=== PATIENT | male | born 1945 | race Hispanic/Latino ===

== ENCOUNTER 2023-04-17 14:55 | Emergency (ER) | payer OTHER ==
[~2023-04-17] VITALS: Ht 177.8 cm; Wt 81.6 kg
[~2023-04-17 14:55] MED LIST: AEC81 PO; GLIP10TA9 PO; INSU100V12 SQ; METF-446 PO; PSYL1000 MC; ROSU20TA73 PO; TRAM50TA4 PO
[2023-04-17 16:46] VITALS: BP 92/72; PULSE 95; RESP 19; O2SAT 96
[2023-04-17 17:02] LABS: HEMATOCRIT 43.4 % (42-54); MEAN CORPUSCULAR HEMOGLOBIN 30.3 pg (27.0-33.0); MEAN CORPUSCULAR HGB CONC 34.3 g/dL (32.0-36.0); MEAN CORPUSCULAR VOLUME 88.4 fL (79-99); PLATELET COUNT (AUTO) 335 K/uL (130-400); RED BLOOD CELL COUNT(AUTO) 4.91 MIL/uL (4.50-6.20); WHITE BLOOD COUNT (AUTO) 11.3 K/uL (4.8-10.8)
[2023-04-17 17:10] LABS: POTASSIUM 3.6 mmol/L (3.5-5.1)
[2023-04-17 17:49] LABS: ALBUMIN 3.4 g/dL (3.5-5.0); BILIRUBIN,TOTAL 0.4 mg/dL (0.2-1.0)
[2023-04-17 17:55] LABS: BASOPHILS # (AUTO) 0.05 K/uL (0.00-0.20); BASOPHILS % (AUTO) 0.4 % (0.0-5.0); EOSINOPHILS # (AUTO) 0.17 K/uL (0.00-0.70); EOSINOPHILS % (AUTO) 1.5 % (0.0-8.0); IMMATURE GRANULOCYTE ABSOLUTE 0.07 K/uL (0-1); LYMPHOCYTES # (AUTO) 1.5 K/uL (1.0-4.8); LYMPHOCYTES % (AUTO) 13.7 % (21.0-51.0); MONOCYTES % (AUTO) 9.2 % (3.0-13.0); NEUTROPHILS # (AUTO) 8.3 K/uL (1.8-7.7); NEUTROPHILS % (AUTO) 74.6 % (40.0-77.0)
[2023-04-17] MEDS ORDERED: HYDR-4377 PO (18:57)
[2023-04-17] MEDS ORDERED: GABA-529 PO (18:57)
[2023-04-17] MEDS ORDERED: BACITRACIN 28.4 GM OINT TP SCH (19:00)
[2023-04-17] MEDS: BACITRACIN 28.4 GM OINT TP ONE (19:29)
== END 2023-04-17 19:45 | disposition home or self-care (01) ==
LOC: EDH 14:55
DX: T25.122A Burn of first degree of left foot, initial encounter (principal); T31.0 Burns involving less than 10% of body surface; X08.8XXA Exposure to other specified smoke, fire and flames, initial encounter; Y93.89 Activity, other specified; Y92.89 Other specified places as the place of occurrence of the external cause; Y99.8 Other external cause status; I10 Essential (primary) hypertension; E11.9 Type 2 diabetes mellitus without complications; Z79.82 Long term (current) use of aspirin; Z79.84 Long term (current) use of oral hypoglycemic drugs; Z79.899 Other long term (current) drug therapy
CPT/HCPCS: 36415; 73600; 73630; 80053; 82550; 85025

== ENCOUNTER 2024-05-10 13:13 | Emergency (ER) | payer MEDICARE, OTHER ==
[~2024-05-10] VITALS: Ht 175.3 cm; Wt 84.8 kg
[~2024-05-10 13:13] MED LIST changes: +GABA-529 PO; +GLIP10TA16 PO; -GLIP10TA9 PO; +HYDR-4377 PO; -ROSU20TA73 PO; +ROSU20TA98 PO
--- NOTE | 2024-05-10 13:36 | EKG ---
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
[2024-05-10 13:54] LABS: BASOPHILS # (AUTO) 0.06 K/uL (0.00-0.20); BASOPHILS % (AUTO) 0.5 % (0.0-5.0); EOSINOPHILS # (AUTO) 0.21 K/uL (0.00-0.70); EOSINOPHILS % (AUTO) 1.9 % (0.0-8.0); HEMATOCRIT 42.6 % (42-54); IMMATURE GRANULOCYTE ABSOLUTE 0.06 K/uL (0-1); LYMPHOCYTES # (AUTO) 1.8 K/uL (1.0-4.8); LYMPHOCYTES % (AUTO) 16.3 % (21.0-51.0); MEAN CORPUSCULAR HGB CONC 33.8 g/dL (32.0-36.0); MEAN CORPUSCULAR VOLUME 88.8 fL (79-99); MONOCYTES # (AUTO) 0.8 K/uL (0.1-1.0); MONOCYTES % (AUTO) 6.7 % (3.0-13.0); NEUTROPHILS # (AUTO) 8.4 K/uL (1.8-7.7); NEUTROPHILS % (AUTO) 74.1 % (40.0-77.0); PLATELET COUNT (AUTO) 346 K/uL (130-400); WHITE BLOOD COUNT (AUTO) 11.3 K/uL (4.8-10.8)
--- NOTE | 2024-05-10 13:55 | HMCIMG ---
PORTABLE CHEST RADIOGRAPH INDICATION: sob COMPARISON: None FINDINGS: probate lawyer leads overlie the field of view. Heart size is normal. The pulmonary vascularity and mckay appear normal. No abnormal pulmonary parenchymal opacity or consolidation identified. No significant pleural effusion noted. No pneumothorax detected. IMPRESSION: No radiographic evidence for any acute cardiopulmonary process.
[2024-05-10 14:04] LABS: INR 1.02 (0.85-1.15); POTASSIUM 4.9 mmol/L (3.5-5.1); PROTHROMBIN TIME 10.8 SEC (9.6-11.6)
[2024-05-10 14:09] LABS: MAGNESIUM 1.9 mg/dL (1.80-2.40)
[2024-05-10 14:22] LABS: B-TYPE NATRIURETIC PEPTIDE 22 pg/mL (0-100)
[2024-05-10] MEDS: 0.9%NACL 1000ML 1,000 ML IV ONE (15:34)
[2024-05-10 15:58] LABS: SARS-CoV-2, RNA, NAAT NEGATIVE SARS CoV-2 (NEGATIVE)
[2024-05-10] MEDS ORDERED: METF-526 PO (15:58)
--- NOTE | 2024-05-10 15:58 | ERN ---
General Chief Complaint: Shortness of Breath Stated Complaint: SOB Time Seen by MD: 13:15 Source: patient History of Present Illness Initial Comments Patient is a 78-year-old gentleman coming in to be evaluated for shortness of breath. Patient states that he feels like this when his glucose is elevated. Patient also states that he was not taking his medication because provider forgot to given medication. He states he saw his blood glucose elevated yesterday and again today. Allergies: Coded Allergies: No Known Allergies (Unverified Allergy, Unknown, 07/03/22) Home Meds Active Scripts Gabapentin (Gabapentin) 100 Mg Capsule, 100 MG PO BID for 30 Days, #30 CAP Prov:BRITTANY BILLS MD 04/17/23 Hydrocodone/Acetaminophen (Hydrocodone-Acetamin 5-300 mg) 5 Mg-300 Mg Tablet, 1 EACH PO q8hrs, #9 TAB Prov:BRITTANY BILLS MD 04/17/23 Reported Medications Aspirin (ASPIRIN 81 MG ECTAB) 81 Mg Ectab, 81 MG PO DAILY, TAB.EC 07/06/22 Tramadol Hcl (Tramadol HCl) 50 Mg Tablet, 50 MG PO BID PRN for PAIN, TAB 07/06/22 Rosuvastatin Calcium (Rosuvastatin Calcium) 20 Mg Tablet, 20 MG PO HS, TAB 07/06/22 Psyllium Husk (Psyllium Husk) 1,000 Gm Powder, 38 GM MC DAILY, APPL 07/06/22 Metformin HCl (Metformin HCl) 1,000 Mg Tablet, 1000 MG PO BIDMEALS, TAB 07/06/22 Insulin Detemir (Levemir) 100 Unit/1 Ml Vial, 25 UNIT SQ DAILY, VIAL 07/06/22 Glipizide (Glipizide) 10 Mg Tablet, 10 MG PO DAILY, TAB 07/06/22 Past Medical History Past Medical History: Diabetes-Type II, High Cholesterol, Hypertension Past Surgical History: None ROS Dictation CONSTITUTIONAL: No chills, no fever, no weakness, no diaphoresis, no malaise. HEAD/FACE: No signs of trauma. EENT: No eye pain, no blurred vision, no tearing, no double vision, no ear pain, no ear discharge, no nose pain, no nasal congestion, no throat pain, no throat swelling, no mouth pain. RESPIRATORY: No cough, no orthopnea, no SOB, no stridor, no wheezing. CARDIOVASCULAR: No chest pain, no edema, no palpitations, no syncope. GASTROINTESTINAL/ABDOMINAL: No abdominal pain, no constipation, no diarrhea, no nausea, no vomiting. GENITOURINARY: No abnormal discharge, no dysuria, no frequent urination, no hematuria. No complaints of pain in the genitals. MUSCULOSKELETAL: No back pain, no gout, no joint pain, no joint swelling, no muscle pain, no muscle stiffness, no neck pain. INTEGUMENTARY: No change in color, no change in hair/nails, no dryness, no lesion, no lumps, no rash. NEUROLOGICAL/PSYCH: No anxiety, not depressed, no emotional problem, no headache, no numbness, no pre-existing deficit, no history of seizures, no tremors, no weakness. HEMATOLOGIC/LYMPHATIC: Not anemic, no history of blood clots, no apparent bleeding, no bruising, glands not swollen. All Systems Negative, Except as Noted. Physical Exam Physical Exam Dictation VITAL SIGNS: Reviewed. GENERAL APPEARANCE: Alert, oriented x3, no acute distress, obese. HEAD AND FACE: Non-traumatic. EYES: PERRL, pink conjunctivas, eyelid no trauma, anterior chamber clear. EARS: Pinnas intact and no signs of trauma or erythema. Ear canals clear and no discharge. TMs no erythema. NOSE: No discharge, no bleeding. OROPHARYNX: Mouth normal, teeth no caries, tongue pink. Pharynx clear, no erythema. Tonsils no exudates, no abscesses noted. Mucous membrane moist. NECK: Supple, non-tender, no thyromegaly, no masses, no JVD, no bruits. BREAST: Deferred. CHEST: No tenderness, no crepitus, no paradoxical movement, no retractions. LUNGS: Clear, well-ventilated, symmetric, no rales, no wheezing, no rhonchi, no stridor, good breath sounds bilaterally. HEART: Regular rate, regular rhythm, no murmur, no gallops. VASCULAR: No peripheral edema. ABDOMEN: Soft, positive bowel sounds, nondistended, no guarding, nontender, no rebound, no masses no hepatomegaly, no splenomegaly, no Zayas's sign, no hernias. RECTAL: Deferred. GENITAL: Deferred. NEUROLOGICAL: Normal speech, gross motor function intact, gross sensory function intact. MUSCULOSKELETAL: Neck nontender, full range of motion, back nontender, full range of motion. EXTREMITIES: Nontender, full range of motion. SKIN: Color pink, dry, no turgor, no rash, no lacerations, no abrasions, no contusions. LYMPHATICS: Deferred. Results Laboratory and Microbiology Lab and Micro Result Laboratory Tests Test 05/10/24 13:39 White Blood Count 11.3 K/uL (4.8-10.8) H Red Blood Count 4.80 MIL/uL (4.50-6.20) Hemoglobin 14.4 g/dL (14.0-18.0) Hematocrit 42.6 % (42-54) Mean Corpuscular Volume 88.8 fL (79-99) Mean Corpuscular Hemoglobin 30.0 pg (27.0-33.0) Mean Corpuscular Hemoglobin Concent 33.8 g/dL (32.0-36.0) Red Cell Distribution Width 12.0 % (11.0-15.5) Platelet Count 346 K/uL (130-400) Mean Platelet Volume 9.8 fL (7.5-10.5) Immature Granulocyte % (Auto) 0.5 % (0-1) Neutrophils (%) (Auto) 74.1 % (40.0-77.0) Lymphocytes (%) (Auto) 16.3 % (21.0-51.0) L Monocytes (%) (Auto) 6.7 % (3.0-13.0) Eosinophils (%) (Auto) 1.9 % (0.0-8.0) Basophils (%) (Auto) 0.5 % (0.0-5.0) Neutrophils # (Auto) 8.4 K/uL (1.8-7.7) H Lymphocytes # (Auto) 1.8 K/uL (1.0-4.8) Monocytes # (Auto) 0.8 K/uL (0.1-1.0) Eosinophils # (Auto) 0.21 K/uL (0.00-0.70) Basophils # (Auto) 0.06 K/uL (0.00-0.20) Absolute Immature Granulocyte (auto 0.06 K/uL (0-1) Nucleated Red Blood Cells 0.0 % (0.0-0.19) Prothrombin Time 10.8 SEC (9.6-11.6) Prothromb Time International Ratio 1.02 (0.85-1.15) Activated Partial Thromboplast Time 26.0 SEC (26.3-35.5) L Sodium Level 135 mmol/L (136-145) L Potassium Level 4.9 mmol/L (3.5-5.1) Chloride Level 100 mmol/L (101-111) L Carbon Dioxide Level 33 mmol/L (21-32) H Blood Urea Nitrogen 23 mg/dL (7-18) H Creatinine 1.0 mg/dL (0.5-1.3) Glomerular Filtration Rate Calc 77 mL/min (>90) Random Glucose 326 mg/dL (70-105) H Total Calcium 8.9 mg/dL (8.5-10.1) Magnesium Level 1.90 mg/dL (1.80-2.40) Total Creatine Kinase 84 U/L (21-232) # Troponin I High Sensitivity 9 ng/L (4-75) B-Type Natriuretic Peptide 22 pg/mL (0-100) Labs Reviewed?: Yes EKG/XRAY/US/CT/MRI EKG Comment 05/10/2024 time 1:35 p.m. Ventricular rate 69 Sinus rhythm DC [address] wave elevation or depression X-RAY Comment [place] [id number] [address] IMAGING REPORT Signed PATIENT: OLEG FERRARO MR#: [id number] : 1945 SEX: M AGE: 78 LOCATION: ED ORDER 132 STATUS: REG ER REPORT#: [id number] SERVICE 1323 REASON: sob ORDERING PHYSICIAN: SUSAN HINDS MD PROCEDURE: CXR1VW - CHEST 1VW PORTABLE CHEST RADIOGRAPH INDICATION: sob COMPARISON: None FINDINGS: threat monitoring analyst leads overlie the field of view. Heart size is normal. The pulmonary vascularity and mckay appear normal. No abnormal pulmonary parenchymal opacity or consolidation identified. No significant pleural effusion noted. No pneumothorax detected. IMPRESSION: No radiographic evidence for any acute cardiopulmonary process. DICTATED BY: GIANNA NO MD DATE: 05/10/24 1353 ELECTRONICALLY SIGNED BY: GIANNA NO MD DATE: 05/10/24 1355 MDM MDM: Differential diagnosis: Anxiety, shortness of breath, dehydration, elevated glucose, Patient is a 78-year-old gentleman coming in to be evaluated for vertigo. Patient does state that he feels this way when his glucose is elevated. Glucose was mildly elevated patient received IV fluids states he feels much better. Patient will be discharged in stable condition with a diagnosis of dehydration and hyperglycemia. ED Course Orders Procedure Category Date Status Time Cbc With Differential LAB 05/10/24 Complete 13:23 Prothrombin Time With LAB 05/10/24 Complete INR 13:23 B-Type Natriuretic LAB 05/10/24 Complete Peptide 13:23 Chest 1vw RAD 05/10/24 Resulted 13:23 12 Lead Ekg Tracing- EKG 05/10/24 Complete Technical 13:23 Magnesium LAB 05/10/24 Complete 13:23 Creatine Kinase, Total LAB 05/10/24 Complete 13:23 Troponin I High LAB 05/10/24 Complete Sensitivity 13:23 Urinalysis Profile LAB 05/10/24 Logged 13:23 Partial LAB 05/10/24 Complete Thromboplastin Time 13:23 Basic Metabolic Panel LAB 05/10/24 Complete 13:23 Covid Rna Naat LAB 05/10/24 In Process 15:07 Influenza Type A & B, LAB 05/10/24 In Process Rapid 15:07 0.9%Nacl 1000ml (Ns PHA 05/10/24 Complete 1000ml) 15:30 Current Medications Medications (Trade) Dose Ordered Sig/Kermit Route PRN Reason Start Time Stop Time Status Last Admin Dose Admin Sodium Chloride 1,000 ml @ 0 mls/hr ONCE ONCE IV 05/10/24 15:30 05/10/24 15:31 DC 05/10/24 15:34 Vital Signs Date Time Temp Pulse Resp B/P (MAP) Pulse Ox O2 Delivery O2 Flow Rate FiO2 05/10/24 14:01 62 16 137/66 98 Room Air* 0 21 05/10/24 13:14 97.7 65 17 147/73 97 Room Air 0 DX & DISP Disposition: Discharge Departure Impression: Primary Impression: Dehydration Additional Impression: Diabetes mellitus with hyperglycemia Condition: Stable Scripts Metformin HCl (Metformin HCl ER) 500 Mg Tab.er.24 1 TAB PO BID for 30 Days, #60 TAB 0 Refills Prov: SUSAN HINDS MD 05/10/24 Additional Instructions: You have been reviewed in the emergency department at [facility] after presenting with chest pain. After considering your history, your risk factors, your EKG and your blood test troponins, have been found to be at very low risk less than (1 in 100) of having a major adverse cardiac event (like heart attack) in the near future. In the " low risk" group, the risks of doing further tests and treatment as the inpatient outweighs the benefits. In many patients in the low risk group for the test of any sort or unnecessary, however he should discuss this further with his general practitioner who will understand the medical and personal backgrounds better. Because we have never declared you" no risk" we would suggest. 1 returning for medical review if you have further episodes of chest pain/arm pain or other concerning symptoms like dizziness, collapse, palpitations or shortness of breath. 2. Following up with your local doctor who will consider the need for further testing and will also ensure that any modifiable risk factors you may have for heart disease are optimally managed. Patient will be discharged in stable condition at the moment discharge patient states , no chest pain Referrals: SELF,REFERRAL (PCP) ANGELO ENCISO MD Time of Disposition: 15:56 SUSAN HINDS MD May 10, 2024 15:58
--- NOTE | 2024-05-10 16:10 | NUR ---
PT IS READY TO DISCHARGE AFTER IV FLUIDS
[2024-05-10 16:33] LABS: INFLUENZA TYPE A Negative For Type A (NEGATIVE); INFLUENZA TYPE B Negative For Type B (NEGATIVE)
--- NOTE | 2024-05-10 16:33 | NUR ---
CALLED [phone] NO ANSWER CALLED [phone] NO ANSWER LEFT VOICE MAIL PT IS READY FOR DISCHARGE
--- NOTE | 2024-05-10 16:38 | NUR ---
SPOKE TO GRANDSON, HE IS CALLING FOR A RIDE FOR PT. PT IS AOX3
[2024-05-10 16:40] VITALS: BP 135/52; PULSE 68; RESP 16; TEMP 97.9; O2SAT 97
--- NOTE | 2024-05-10 16:55 | NUR ---
PT IS AOX3 NO SIGNS OF DISTRESS. DISCHARGE AND WANTS TO WAIT IN LOBBY FOR FAMILY.
== END 2024-05-10 16:55 | disposition home or self-care (01) ==
LOC: EDH 13:13
DX: E86.0 Dehydration (principal); E11.65 Type 2 diabetes mellitus with hyperglycemia; E78.00 Pure hypercholesterolemia, unspecified; I10 Essential (primary) hypertension; Z79.4 Long term (current) use of insulin; Z79.82 Long term (current) use of aspirin; Z79.84 Long term (current) use of oral hypoglycemic drugs; Z79.899 Other long term (current) drug therapy; Z20.822 Contact with and (suspected) exposure to COVID-19
CPT/HCPCS: 99285; 96360; 71045; 87635; 82550; 83735; 84484; 80048; 83880; 85025; 85610; 85730; 87804 ×2; 36415; 93005; J7030

== ENCOUNTER 2024-12-11 15:15 | Inpatient (IN) | payer OTHER ==
[2024-12-11] VITALS (12 sets, daily range): BP systolic 106–137; BP diastolic 48–76; PULSE 53–56; RESP 20–28; TEMP 98; O2SAT 96
[~2024-12-11] VITALS: Ht 172.7 cm; Wt 860.0 kg
[~2024-12-11 15:15] MED LIST changes: +METF-526 PO
[2024-12-11 15:36] LABS: IMMATURE GRANULOCYTE ABSOLUTE 0.16 K/uL (0-1); NUCLEATED RED BLOOD CELLS 0.0 % (0.0-0.19); PLATELET COUNT (AUTO) 347 K/uL (130-400); RED BLOOD CELL COUNT(AUTO) 5.22 MIL/uL (4.50-6.20); RED CELL DISTRIBUTION WIDTH 12.3 % (11.0-15.5); WHITE BLOOD COUNT (AUTO) 19.5 K/uL (4.8-10.8)
--- NOTE | 2024-12-11 15:40 | NUR ---
code stemi initiated
[2024-12-11 15:49] LABS: ASPARTATE AMINOTRANSFERASE 55.0 U/L (10-37); CREATININE 3.0 mg/dL (0.5-1.3); GLOMERULAR FILTR. RATE CALC 20.0 mL/min (>90); GLUCOSE,RANDOM 390.0 mg/dL (70-105); SODIUM SERUM 134.0 mmol/L (136-145); UREA NITROGEN, BLOOD 47.0 mg/dL (7-18)
[2024-12-11] MEDS: ASPIRIN 325MG TAB ONE (15:52)
--- NOTE | 2024-12-11 15:52 | ERN ---
ED Note History of Present Illness Stated Complaint: CP Chief Complaint: Chest Pain Time Seen by MD: 15:25 Dictation: 79-year-old male presenting to the emergency department history of diabetes and hypertension unknown cardiac history with chest pain over the past two days worse today. Patient reports 9/ constant pain pressure-like sensation no shortness a breath Allergies: Coded Allergies: No Known Allergies (Unverified Allergy, Unknown, 07/03/22) Home Meds Active Scripts Metformin HCl (Metformin HCl ER) 500 Mg Tab.er.24, 1 TAB PO BID for 30 Days, #60 TAB 0 Refills Prov:SUSAN HINDS MD 05/10/24 Gabapentin (Gabapentin) 100 Mg Capsule, 100 MG PO BID for 30 Days, #30 CAP Prov:BRITTANY BILLS MD 04/17/23 Hydrocodone/Acetaminophen (Hydrocodone-Acetamin 5-300 mg) 5 Mg-300 Mg Tablet, 1 EACH PO q8hrs, #9 TAB Prov:BRITTANY BILLS MD 04/17/23 Reported Medications Aspirin (ASPIRIN 81 MG ECTAB) 81 Mg Ectab, 81 MG PO DAILY, TAB.EC 07/06/22 Tramadol Hcl (Tramadol HCl) 50 Mg Tablet, 50 MG PO BID PRN for PAIN, TAB 07/06/22 Rosuvastatin Calcium (Rosuvastatin Calcium) 20 Mg Tablet, 20 MG PO HS, TAB 07/06/22 Psyllium Husk (Psyllium Husk) 1,000 Gm Powder, 38 GM MC DAILY, APPL 07/06/22 Metformin HCl (Metformin HCl) 1,000 Mg Tablet, 1000 MG PO BIDMEALS, TAB 07/06/22 Insulin Detemir (Levemir) 100 Unit/1 Ml Vial, 25 UNIT SQ DAILY, VIAL 07/06/22 Glipizide (Glipizide) 10 Mg Tablet, 10 MG PO DAILY, TAB 07/06/22 Past Medical History Past Medical History: Diabetes-Type II, High Cholesterol, Hypertension Surgical History: None Review of System Dictation Constitutional: Negative for fever,chills, and weight loss Eyes: Negative for injury, pain,redness, and discharge ENT: Negative for injury,pain or swelling Cardiovascular: Per HPI Respiratory: Negative for shortness of breath, cough, and wheezing, Abdomen/GI: Negative for abdominal pain, nausea, vomiting, diarrhea, and constipation Back: Negative for injury and pain : Negative for injury, bleeding and discharge MS/Extremity: Negative for injury and deformity Skin: Negative for rash, and discoloration Neuro: Negative for headache, weakness, numbness, tingling, and seizure Psych: Negative for suicide ideation, homicidal ideation, and hallucinations Initial Vital Sign VS Vital Signs Date Time Temp Pulse Resp B/P (MAP) Pulse Ox O2 Delivery O2 Flow Rate FiO2 12/11/24 15:18 99.0 52 18 115/54 97 12/11/24 15:58 Nasal Cannula* 2 28 Physical Exam Dictation General: awake, alert appears ill Head/Face: Normocephalic, atraumatic Eyes: PERRL, EOMI, vision at baseline ENT: oral cavity clear, TMs clear, no signs of infection Neck: Trachea midline, supple, no nuchal rigidity Cardiovascular: RRR, normal S1/S2, No MRGs, no JVD Respiratory: CTAB, no respiratory distress, No rales or wheezes Abdomen: Soft, non-tender, non-distended, normal bowel sounds, no guarding or rebound. Skin: Warm, dry, normal turgor, no rash MS/Extremity: Pulses equal, no cyanosis, neurovascular intact, FROM Neuro: COAx4, GCS 15, strength 5/5, CN 2-12 intact, normal cerebellar exam, normal gait, Psych: Normal behavior, mood, and affect normal Results (Laboratory/Radiology) Laboratory/Radiology Laboratory Tests Test 12/11/24 15:29 12/11/24 15:40 White Blood Count 19.5 K/uL (4.8-10.8) H Red Blood Count 5.22 MIL/uL (4.50-6.20) Hemoglobin 15.9 g/dL (14.0-18.0) Hematocrit 47.5 % (42-54) Mean Corpuscular Volume 91.0 fL (79-99) Mean Corpuscular Hemoglobin 30.5 pg (27.0-33.0) Mean Corpuscular Hemoglobin Concent 33.5 g/dL (32.0-36.0) Red Cell Distribution Width 12.3 % (11.0-15.5) Platelet Count 347 K/uL (130-400) Mean Platelet Volume 10.0 fL (7.5-10.5) Immature Granulocyte % (Auto) 0.8 % (0-1) Neutrophils (%) (Auto) 84.1 % (40.0-77.0) H Lymphocytes (%) (Auto) 7.0 % (21.0-51.0) L Monocytes (%) (Auto) 7.8 % (3.0-13.0) Eosinophils (%) (Auto) 0.1 % (0.0-8.0) Basophils (%) (Auto) 0.2 % (0.0-5.0) Neutrophils # (Auto) 16.4 K/uL (1.8-7.7) H Lymphocytes # (Auto) 1.4 K/uL (1.0-4.8) Monocytes # (Auto) 1.5 K/uL (0.1-1.0) H Eosinophils # (Auto) 0.01 K/uL (0.00-0.70) Basophils # (Auto) 0.04 K/uL (0.00-0.20) Absolute Immature Granulocyte (auto 0.16 K/uL (0-1) Nucleated Red Blood Cells 0.0 % (0.0-0.19) White Cell Morphology Comment See comments Sodium Level 134 mmol/L (136-145) L Potassium Level 4.5 mmol/L (3.5-5.1) Chloride Level 95 mmol/L (101-111) L Carbon Dioxide Level 23 mmol/L (21-32) Blood Urea Nitrogen 47 mg/dL (7-18) H Creatinine 3.0 mg/dL (0.5-1.3) H Glomerular Filtration Rate Calc 20 mL/min (>90) Random Glucose 390 mg/dL (70-105) H Hemoglobin A1c 9.3 % (4.0-6.0) H Estimated Average Glucose (eAG) 220 mg/dL (70-126) H Total Calcium 8.8 mg/dL (8.5-10.1) Total Bilirubin 0.9 mg/dL (0.2-1.0) Direct Bilirubin 0.1 mg/dL (0.0-0.3) Aspartate Amino Transf (AST/SGOT) 55 U/L (10-37) H Alanine Aminotransferase (ALT/SGPT) 35 U/L (12-78) Alkaline Phosphatase 154 U/L (50-136) H Troponin I High Sensitivity > 357077 ng/L (4-75) *H B-Type Natriuretic Peptide 746 pg/mL (0-100) H Total Protein 8.2 g/dL (6.0-8.3) Albumin 1.9 g/dL (3.5-5.0) L Activated Partial Thromboplast Time 26.3 SEC (26.3-35.5) Labs Reviewed?: Yes EKG Comment: Heart rate 51, inferior ST segment elevation with Q-waves and inverted T-waves ED Course ED Course Orders Procedure Category Date Status Time B-Type Natriuretic LAB 12/11/24 Complete Peptide 15:25 12 Lead Ekg Tracing- EKG 12/11/24 Logged Technical 15:25 Basic Metabolic Panel LAB 12/11/24 Complete 15: Cbc With Differential LAB 12/11/24 Complete 15:25 Hepatic Function Panel LAB 12/11/24 Complete 15:25 Troponin I High LAB 12/11/24 Complete Sensitivity 15:25 Chest 1vw RAD 12/11/24 Resulted 15:25 Fentanyl Citrate Pf PHA 12/11/24 Complete 0.05 Mg/Ml (Fentanyl 16:00 Aspirin 325mg Tab PHA 12/11/24 Complete (Aspirin 325mg Tab) 16:00 Initiate Heparin WM 12/11/24 In Process Treatment Pro 15:38 Partial LAB 12/11/24 Complete Thromboplastin Time 15:38 Heparin 5,000 Unit PHA 12/11/24 In Process Vial (Heparin 5,000 U 16:30 Heparin 25,000 PHA 12/11/24 In Process Units/250ml D5w 16:30 Heparin Protocol CPOE 12/11/24 Transmitted Monitoring 15:38 Heparin 5,000 Unit PHA 12/11/24 Complete Vial (Heparin 5,000 U 15:41 Aspirin 325mg Tab PHA 12/11/24 Complete (Aspirin 325mg Tab) 15:41 Fentanyl Citrate Pf PHA 12/11/24 Complete 0.05 Mg/Ml (Fentanyl 15:41 Heparin 25,000 PHA 12/11/24 Complete Units/250ml D5w 15:42 Mink Slicer Procedure CATH 12/11/24 Logged Request 16:00 Lidocaine Hcl PHA 12/11/24 Complete 400mg/20ml (Lidocaine 16:10 Iohexol (Omnipaque) PHA 12/11/24 Complete 16:11 Heparin 10,000 PHA 12/11/24 Complete Unit/10ml (Heparin 16:11 Heparin-Ns 1,000 PHA 12/11/24 Complete Unit/500 Ml 16:11 Nitroglycerin 50mg PHA 12/11/24 Complete Vial (Tridil 50mg/10m 16:11 Vital Signs(Adult CPOE 12/11/24 Transmitted Hospitalist) 16:30 Nurse To Enter Home CPOE 12/11/24 Transmitted Medication 16:30 Admit Orders ADM 12/11/24 Transmitted 16:30 Telemetry Monitoring CPOE 12/11/24 Transmitted 16:30 Nothing By Mouth DIET 12/11/24 Transmitted Dinner Cardiology Consult CONPHYSVC 12/11/24 Transmitted 16:30 Echo 2-D Complete ECHO 12/11/24 Logged 16:30 Acetaminophen 500mg PHA 12/11/24 In Process Tab (Tylenol 500mg T 16:30 Urinalysis Profile LAB 12/11/24 Logged 16:30 Initiate WM 12/11/24 In Process Hyperglycemia Protoco 16:30 Insulin Regular, PHA 12/11/24 In Process Human 3ml (Humulin R 16:30 Hemoglobin A1c LAB 12/11/24 Complete 16:30 Procalcitonin LAB 12/11/24 In Process 16:30 Crp Quantitative LAB 12/11/24 In Process 16:30 Thyroid Stimulating LAB 12/11/24 In Process Hormone 16:30 Urine Sodium,Random LAB 12/11/24 Logged 16:30 Urine Creatinine LAB 12/11/24 Logged Random 16:30 Nephrology Consult CONPHYSVC 12/11/24 Transmitted 16:30 Critcal Care Consult CONPHYSVC 12/11/24 Transmitted 16:35 Aspirin 81mg Chew Tab PHA 12/12/24 In Process (Aspirin 81mg Chew 09:00 Clopidogrel 300mg Tab PHA 12/11/24 Complete (Plavix 300mg Tab) 17:00 Clopidogrel 75mg Tab PHA 12/12/24 In Process (Plavix 75mg) 09:00 Metoprolol Tartrate PHA 12/11/24 In Process 25 Mg Tab (Lopressor 21:00 Atorvastatin 20mg PHA 12/11/24 In Process (Lipitor 20mg) 21:00 Troponin I High LAB 12/11/24 Logged Sensitivity 19:00 Troponin I High LAB 12/11/24 Logged Sensitivity 22:00 0.9% Nacl 500ml PHA 12/11/24 In Process Iv.Soln (Ns 500ml 17:00 Current Medications Medications (Trade) Dose Ordered Sig/Kermit Route PRN Reason Start Time Stop Time Status Last Admin Dose Admin Aspirin (Aspirin 325mg Tab) 325 mg STK-MED ONCE .ROUTE 12/11/24 15:41 12/11/24 15:41 DC 12/11/24 15:52 Fentanyl Citrate (FENTanyl CITRate PF 50 MCG/ 1 ML 2ML VIAL) 100 mcg STK-MED ONCE .ROUTE 12/11/24 15:41 12/11/24 15:42 DC Heparin Sodium (Porcine) (HEParin 5,000 UNIT VIAL) 5,000 unit STK-MED ONCE .ROUTE 12/11/24 15:41 12/11/24 15:41 DC 12/11/24 15:52 Heparin Sodium/ Dextrose 250 ml @ As Directed STK-MED ONCE IV 12/11/24 15:42 12/11/24 15:42 DC 12/11/24 15:53 Vital Signs Date Time Temp Pulse Resp B/P (MAP) Pulse Ox O2 Delivery O2 Flow Rate FiO2 12/11/24 16:25 98.1 49 15 108/56 99 Nasal Cannula* 2 28 12/11/24 15:58 97.9 50 20 106/38 98 Nasal Cannula* 2 28 12/11/24 15:18 99.0 52 18 115/54 97 Medical Decision Making MDM MDM: Differential diagnosis: Rationale: Tests considered and ordered secondary to shared decision making include: labs, ECG and radiology Previous outside records reviewed: Old ER visits. Risk of complication and/or morbidity or mortality of patient management: None Medications-Per medication reconciliation Need for hospitalization: Patient does meet criteria for hospitalization. Need for emergency major/minor surgery: No There are no social concerns with this patient. Prescription drug management Prescriptions will include symptomatic care Patient's prior external medical records from other ER visits were reviewed by me as indicated. Prior testing and results from previous visits were reviewed. Prior tests were taken into account with medical decision making and resource utilization, independent historian/historians were used to obtain complete medical history. I independently interpreted the test that were performed, results were reviewed by me and considered findings on radiology if ordered. Medical management and examination interpretation discussions were had by me with other qualified healthcare professionals as indicated for the patient's care. 29-year-old male with STEMI inferior, blood pressure stable on arrival pain medicine heparin aspirin given STEMI alert activated at 3:33 p.m.. Pending Cardiology consult. 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 Excluding time for procedures. Management of critically ill patient with concern for acute decompensation. Management included interpretation of laboratory values and imaging, hemodyn amics, time for consultation with consultants and admitting physician. DX & DISP Disposition: Inpatient Departure Impression: Primary Impression: STEMI (ST elevation myocardial infarction) Condition: Stable Referrals: CHIRAG OLIVAREZ (PCP) JULY GANN MD Dec 11, 2024 15:52
[2024-12-11] MEDS: ASPIRIN 325MG TAB PO ONE (15:56)
[2024-12-11 16:02] LABS: TOTAL PROTEIN, SERUM 8.2 g/dL (6.0-8.3)
--- NOTE | 2024-12-11 16:05 | NUR ---
dr mackenzie at bedside
[2024-12-11] MEDS ORDERED: LIDOCAINE HCL 400MG/20ML VIAL ONE (16:10)
[2024-12-11] MEDS ORDERED: IOHEXOL 350 MG/ML 100ML INFUS..BTL IV ONE (16:11)
[2024-12-11] MEDS ORDERED: NITROGLYCERIN 50MG VIAL ONE (16:11)
[2024-12-11] MEDS ORDERED: HEParin-NS 1,000 UNIT/500 ML 1,000 ML IV ONE (16:11)
--- NOTE | 2024-12-11 16:34 | HMCIMG ---
EXAM: CR Chest, 1 View. CLINICAL HISTORY: cp COMPARISON: Radiograph dated May 10, 2024 FINDINGS: LUNGS: Mild bibasilar airspace disease may reflect an infectious process versus atelectasis. Continued follow-up is recommended. PLEURAL SPACES: No pleural effusion or pneumothorax. MEDIASTINUM: Cardiac size and mediastinal contours within normal limits. BONES: No acute osseous abnormality. IMPRESSION: 1. Mild bibasilar airspace disease, possibly representing infection or atelectasis. /[place]
--- NOTE | 2024-12-11 16:38 | NUR ---
notified sonia cunningham np and dr viera for patients elevated troponin of [id number], patient resting in bed, call light in reach
[2024-12-11] MEDS ORDERED: 0.9% NACL 500ML IV.SOLN 500 ML IV SCH (17:00)
--- NOTE | 2024-12-11 17:23 | CONS ---
[facility] Cardiology Consultation Note Cardiology consult dictated for Leesa Macias MD Date of service 12/11/2024 Chief complaint: Chest pain, nausea vomiting dizziness Reason for consult: STEMI History of present illness: This is a 79-year-old male presented for evaluation of chest pain associated with nausea vomiting and dizziness. Symptoms began two days ago but he did not want to come to the hospital until his brother brought him into the emergency department. 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 [address] elevation with Q waves inferiorly and complete heart block- asymptomatic. Troponin >125,000. Patient is resting comfortably denies chest pain. Heparin drip infusing. He has a history of hypertension, dyslipidemia diabetes mellitus type 2. Possible PAD with amputation to 2nd toe on the right foot. Review of systems: 14 point review of systems performed pertinent positives and negatives discussed in HPI. Past medical history: Positive for hypertension, dyslipidemia, diabetes mellitus type 2, negative for CVA TIA no PE no DVT no liver kidney thyroid disease. 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 Allergies: No known allergies Family history: Noncontributory Review of blood work: Troponin high sensitivity greater than [id number], BNP 746. Basic metabolic panel with a sodium of 134, potassium 4.5, BUN of 47 creatinine of 3.0 and a GFR of 20. CBC with white blood cells of 19.5 hemoglobin of 15.9, hematocrit of 47.5 platelets of 347. Current medications: Clopidogrel, aspirin, atorvastatin, insulin sliding scale, heparin drip. Physical exam: Blood pressure 108/56 with a heart rate of 49 beats per minute and regular normal S1-S2 no rubs gallops murmurs noted. Neck is supple no jugular vein distention no carotid bruits. Bilateral breath sounds are clear to auscultation. Radial pulses strong and symmetrical. Lower extremities no edema no cyanosis. Patient is alert awake and oriented. Assessment: Inferior NJ late presentation Troponin high sensitivity greater than [id number], 12 lead EKG Qwaves inferiorly 12 lead EKG complete heart block- asymptomatic Hypertension Dyslipidemia Diabetes mellitus type 2 CKD stage IV Plan: At this point we have a 79-year-old male presented after two days of chest pain nausea vomiting and dizziness. Twelve lead EKG with ST-elevation inferiorly and Q-waves. Twelve lead EKG also demonstrates complete heart block patient is asymptomatic but we can keep transcutaneous pacer on stand by. Troponin greater than [id number] this is a completed event on a patient that is completely asymptomatic. We can continue with heparin drip and give him clopidogrel, aspirin, atorvastatin. We are unable to add beta-fareed to his regimen. We will continue to cycle troponin and schedule him for echocardiogram. Addendum: This patient presented with 48 hours of continuous chest pain. Electrocardiogram shows recent inferior wall NJ with Q-waves in two three AVF and some persistent ST elevation. Upon my arrival the patient is completely pain-free. Also has some AV dissociation on EKG. Blood pressure is stable. Initial troponin [id number]. It is felt that this is now a completed event. We will leave an external pacemaker on standby. He will be treated with aspirin clopidogrel and heparin. We will defer beta blockers until we see how his rhythm does. Statin will be initiated. Prognosis is guarded. ATTESTATION BY PHYSICIAN I have seen and examined the patient. I reviewed the documentation, medical decision making, and treatment plan as noted by the mid-level provider above. I agree with the findings and plan of care. LEESA MACIAS MD, [facility] Dec 11, 2024 17:23 LEESA MACIAS MD Dec 11, 2024 17:57
--- NOTE | 2024-12-11 17:27 | HP ---
[facility] Date of Service: Dec 11, 2024 Time of Service: 17:16 HISTORY OF PRESENT ILLNESS: A 79-year-old male with past medical history of diabetes mellitus type who presented to the hospital secondary to chest pain. Patient states For the past two days he noted that he was having chest pain. Pain was located in the right sternal area and would not radiate. Describes the pain as pressure-like in intensity. He has pain resolved after he came to the hospital today. He denied any nausea, vomiting, fever, chills, cough, shortness of breath, abdominal pain. He did have episodes of nausea without vomiting. He takes insulin at home and metformin. He has not noted any previous renal issues. Denied any changes in his urination. Denied any dysuria, shortness for breath, falls, syncopal episode. Labs were notable for white count of 19.5, hemoglobin was 15.9, platelet count was 347 K, sodium was 134, potassium was 4.5, creatinine was elevated at 3.0, troponin was greater than [id number] was 1.9, TSH was 4.0 Chest x-ray Showed possible infiltrate versus congestive changes On presentation patient's temperature was 99.0, heart rate was 52, blood pressure was 115/54. Patient had ST-elevation in inferior leads with associated Q-waves. Code STEMI was called. Patient was evaluated by Cardiology. REVIEW OF SYSTEMS CONSTITUTIONAL: Denies fevers, chills, or night sweats. No unintentional weight loss reported. NEUROLOGICAL: Denies headache, amaurosis fugax, motor weakness, sensory deficit, vertigo/spinning sensation, gait abnormalities, or tremors. ENT: No hearing loss, otalgia, otorrhea, rhinitis, rhinorrhea, hoarseness, or sore throat. CARDIOVASCULAR: Positive for chest pain. Denied any cough, shortness of breath, orthopnea, PND PULMONARY: Denies any shortness of breath, cough, phlegm/sputum, hemoptysis, pleuritic chest pain. GASTROINTESTINAL: Denies any type of dysphagia to either liquids or solids. Denies nausea, vomiting, pyrosis, early satiety, abdominal pain, diarrhea, constipation, or changes in stool consistency or caliber. Denies coffee-ground emesis, hematemesis, hematochezia, or melanotic stools. GENITOURINARY: Denies frequency, urgency, nocturia, hematuria or incontinence (Storage/Irritative symptoms.) Low urinary stream, straining to void, urinary intermittency or hesitancy, splitting of the voiding stream, terminal dribbling. ENDOCRINOLOGIC: Denies polyuria, polydipsia, polyphagia or heat/cold intolerances. HEMATOLOGIC: Denies thrombophilia/previous clots, or coagulopathy/bleeding disorders. ONCOLOGIC: Denies personal history of malignancy. DERMATOLOGIC: Denies rashes or pruritus. PSYCHIATRIC: Denies any suicidal or homicidal ideation. Denies hallucinations. PAST MEDICAL HISTORY: Diabetes mellitus type 2, hypertension PAST SURGICAL HISTORY: History of surgery in the left shoulder PAST SOCIAL HISTORY: Denied any smoking, alcohol, drug FAMILY HISTORY: Denied any pertinent family history Coded Allergies: No Known Allergies (Unverified Allergy, Unknown, 07/03/22) PHYSICAL EXAM GENERAL APPEARANCE: The patient is awake, alert, and oriented, in no acute cardiopulmonary distress. NEUROLOGICAL: Cranial nerves II-XII grossly intact. Motor is 5/5 in bilateral upper and lower extremities proximal to distal. No sensory deficits. HEENT: Face is symmetric. Pupils are equal and reactive. Extraocular movements are intact. NECK: Supple. No JVD. No thyromegaly. No submental, submandibular, pre-/pos tauricular, occipital or supraclavicular lymphadenopathy. CHEST: Normal chest expansion. No Telemetry. LUNGS: Absence of any rales, rhonchi or any wheezing. CARDIOVASCULAR: Regular. S1 and S2 normal. No appreciable rubs, murmurs or gallops. ABDOMEN: Soft, nontender, and nondistended. There is no rebound, voluntary guarding, or rigidity. : Deferred. No Love. EXTREMITIES: Non-edematous and not cyanotic. No clubbing. Good capillary refill. SKIN: No skin breakdown. Vital Sign (Last 24 Hours) 12/11/24 16:25 Temp 98.1 Pulse 49 Resp 15 B/P (MAP) 108/56 Pulse Ox 99 O2 Delivery Nasal Cannula* O2 Flow Rate 2 FiO2 28 LABS: Laboratory: Test 12/11/24 15:40 12/11/24 15:29 Range/Units Activated Partial Thromboplast Time 26.3 26.3-35.5 SEC White Blood Count 19.5 H 4.8-10.8 K/uL Red Blood Count 5.22 4.50-6.20 MIL/uL Hemoglobin 15.9 14.0-18.0 g/dL Hematocrit 47.5 42-54 % Mean Corpuscular Volume 91.0 79-99 fL Mean Corpuscular Hemoglobin 30.5 27.0-33.0 pg Mean Corpuscular Hemoglobin Concent 33.5 32.0-36.0 g/dL Red Cell Distribution Width 12.3 11.0-15.5 % Platelet Count 347 130-400 K/uL Mean Platelet Volume 10.0 7.5-10.5 fL Immature Granulocyte % (Auto) 0.8 0-1 % Neutrophils (%) (Auto) 84.1 H 40.0-77.0 % Lymphocytes (%) (Auto) 7.0 L 21.0-51.0 % Monocytes (%) (Auto) 7.8 3.0-13.0 % Eosinophils (%) (Auto) 0.1 0.0-8.0 % Basophils (%) (Auto) 0.2 0.0-5.0 % Neutrophils # (Auto) 16.4 H 1.8-7.7 K/uL Lymphocytes # (Auto) 1.4 1.0-4.8 K/uL Monocytes # (Auto) 1.5 H 0.1-1.0 K/uL Eosinophils # (Auto) 0.01 0.00-0.70 K/uL Basophils # (Auto) 0.04 0.00-0.20 K/uL Absolute Immature Granulocyte (auto 0.16 0-1 K/uL Nucleated Red Blood Cells 0.0 0.0-0.19 % White Cell Morphology Comment See comments Sodium Level 134 L 136-145 mmol/L Potassium Level 4.5 3.5-5.1 mmol/L Chloride Level 95 L 101-111 mmol/L Carbon Dioxide Level 23 21-32 mmol/L Blood Urea Nitrogen 47 H 7-18 mg/dL Creatinine 3.0 H 0.5-1.3 mg/dL Glomerular Filtration Rate Calc 20 >90 mL/min Random Glucose 390 H 70-105 mg/dL Hemoglobin A1c 9.3 H 4.0-6.0 % Estimated Average Glucose (eAG) 220 H 70-126 mg/dL Total Calcium 8.8 8.5-10.1 mg/dL Total Bilirubin 0.9 0.2-1.0 mg/dL Direct Bilirubin 0.1 0.0-0.3 mg/dL Aspartate Amino Transf (AST/SGOT) 55 H 10-37 U/L Alanine Aminotransferase (ALT/SGPT) 35 12-78 U/L Alkaline Phosphatase 154 H 50-136 U/L Troponin I High Sensitivity > 195785 *H 4-75 ng/L C-Reactive Protein, Quantitative 41.00 H 0.5-3.0 mg/L B-Type Natriuretic Peptide 746 H 0-100 pg/mL Total Protein 8.2 6.0-8.3 g/dL Albumin 1.9 L 3.5-5.0 g/dL Procalcitonin 0.11 0.05-0.5 ng/mL Thyroid Stimulating Hormone (TSH) 4.04 H 0.36-3.74 uIU/mL Current Medications Medications (Trade) Dose Ordered Sig/Kermit Route PRN Reason Start Time Stop Time Status Last Admin Dose Admin Acetaminophen (TYLenol 500MG TAB) 500 mg Q6H PRN PO MILD PAIN (1-3) 12/11/24 16:30 01/10/25 16:29 Aspirin (Aspirin 81mg Chew Tab) 81 mg DAILY PO 12/12/24 09:00 01/11/25 08:59 Atorvastatin Calcium (LIPItor 20MG) 20 mg HS PO 12/11/24 21:00 01/10/25 20:59 Clopidogrel Bisulfate (plaVIX 75MG) 75 mg DAILY PO 12/12/24 09:00 01/11/25 08:59 Heparin Sodium (Porcine) (HEParin 5,000 UNIT VIAL) *calculation based on ACTUAL B... AD PRN IV HEPARIN PROTOCOL 12/11/24 16:30 01/10/25 16:29 Heparin Sodium/ Dextrose 250 ml @ 0 mls/hr Q6H IV 12/11/24 16:30 01/10/25 16:29 Insulin Human Regular (humuLIN R 100 UNIT/ML 3ML) INSULIN SLIDING SCAL... ACHS SQ 12/11/24 16:30 01/10/25 16:29 Metoprolol Tartrate (loprESSOR) 25 mg BID PO 12/11/24 21:00 12/11/24 17:12 DC Sodium Chloride 500 ml @ 0 mls/hr Q0M IV 12/11/24 17:00 01/10/25 16:59 DIAGNOSTICS / RADIOLOGY: Reviewed ASSESSMENT: Inferior STEMI POA Leukocytosis differential in setting of STEMI versus infection Hyperglycemia secondary to uncontrolled diabetes mellitus type 2 Acute kidney injury Diabetic neuropathy Hypoalbuminemia Mild LFT elevation PLAN: - patient to be admitted to ICU -in reference to inferior STEMI. The patient and we will be started on heparin drip. The patient was evaluated by Cardiology with tentative plan for catheterization today. Follow up on echocardiogram. -reference to leukocytosis. We will monitor for any fevers. If febrile,. Obtain blood cultures. Start patient on antibiotics. Obtain a UA -in reference to acute kidney injury. Obtain a urine sodium, urine creatinine. Obtain nephrology consultation -patient to be started on sliding scale insulin. Check hemoglobin A1c. -obtain critical Care consultation -further orders per hospitalization course -obtain patient's home medications which will be reconciled once available Total critical care time spent greater than 35 minutes Advanced Care Planning Which of the following were discussed: Hospice care: Yes __ No x__ Therapeutic options: Yes __ No __ Advance directives: Yes __ No __ Other discussions: Discussed with who?: patient (Patient, family or surrogates) Voluntary nature of this service was explained to the patient? Yes _x_ No __ Amount of time spent: 25 minutes Total critical care time spend > 35 minutes MARY Cuello MD, MD Dec 11, 2024 17:27
--- NOTE | 2024-12-11 17:59 | NUR ---
spoke to gabe linda sales promoter in regards to new consult
--- NOTE | 2024-12-11 18:04 | EKG ---
[facility] Test Date: 2024-12-11 Test Time: 15:25:43 Pat Name: OLEG FERRARO Department: [facility]IP Room: ED 20 Gender: M Button Riveter: [id number] : 1945 Requested By: JULY GANN Order Number: [id number] Reading MD: Ana M Caicedo Measurements Intervals [place] Rate: 51 P: 59 NH: 366 QRS: 52 QRSD: 104 T: 26 QT: 491 QTc: 454 Interpretive Statements 2:1 AV block Inferior infarct, subacute (RCA) Compared to ECG 05/10/2024 13:35:33 Myocardial infarct finding now present Sinus rhythm no longer present Atrial premature complex(es) no longer present Electronically Signed On 12-11-2024 19:04:33 CDT by Ana M Caicedo Please click the below link to view image of tracing.
--- NOTE | 2024-12-11 18:29 | CONS ---
[facility] CONSULTATION NOTE Date Patient Seen: Dec 11, 2024 Time of Visit: 18:29 Supervising Physician: Dr. Brennen Yang Reason for Consultation: ICCU support and STEMI Primary Care Physician: Cesario Avery. Attending team: [facility] hospitalist team Outpatient Specialists: Inpatient Consults: BIS, critical Care team Cardiology PROBLEM LIST: Inferior RI late presentation Troponin high sensitivity greater than [id number], 12 lead EKG Q waves inferiorly Complete heart block- asymptomatic Mild bibasilar airspace disease, possibly representing infection vs atelectasis, per chest x-ray on 12/11/2024 Bilateral simple renal cortical cysts, left renal parapelvic cyst, per son on 12/11/2024 Hypertension Dyslipidemia Diabetes mellitus type with hyperglycemia CKD stage IV Leukocytosis Diabetic neuropathy Hypoalbuminemia Elevated LFTs HPI: Mr. Yang is a 79-year-old male with past medical history of diabetes mellitus type who presented to the [facility] for evaluation of chest pain onset the past two days. The patient also reported having episodes of nausea without vomiting. Pain was described as pressure-like, located in the right sternal area and would not radiate. He has pain resolved after he came to the hospital today. He denied any nausea, vomiting, fever, chills, cough, shortness of breath, abdominal pain, changes in urination, dysuria, SOB, fall, syncope episode. He has not noted any previous renal issues. On arrival to ED the patient had ST- elevation in inferior leads with associated Q-waves. Code STEMI was called. Patient was evaluated by Cardiology. Labs: white count of 19.5, hemoglobin was 15.9, platelet count was 347 K, sodium was 134, potassium was 4.5, creatinine was elevated at 3.0, troponin was greater than [id number] was 1.9, TSH was 4.0. Chest x-ray: Showed possible infiltrate versus congestive changes Initial vital signs: 99.0F, heart rate was 52bpm, blood pressure was 115/54. The provider requested patient be admitted to the hospital with a diagnosis of STEMI, stable. I assessed the patient at bedside in 215. No family member at bedside. Patient reported continued chest pain but improved from arrival. I informed patient of labs, diagnostics, and plan of care. He verbalized understanding and is in agreement with the plan. Plan and assessment are listed below. PAST MEDICAL HX: see above PAST SURGICAL HX: surgery in the left shoulder SOCIAL HISTORY: No tobacco, ETOH, or illicit drug use Coded Allergies: No Known Allergies (Unverified Allergy, Unknown, 07/03/22) REVIEW OF SYSTEMS: 12 point ROS reviewed with patient. Pertinent positives mentioned above. Otherwise negative. PHYSICAL EXAM: GENERAL: Alert, weak, awake oriented x 3 HEENT: EOMI, Sclera non icteric, moist mucosa NECK: Supple, no JVD, trachea midline LUNGS: Clear breath sounds bilaterally. No wheezes HEART: Regular rate and rhythm. Normal S1 and S2, without murmurs ABD: Abdomen soft, nontender. Bowel sounds present EXT: No clubbing cyanosis or edema NEURO: Alert and oriented to X3, follows commands Vital Signs (last 8hr) Date Time Temp Pulse Resp B/P (MAP) Pulse Ox O2 Delivery O2 Flow Rate FiO2 12/11/24 17:46 97.7 47 20 116/59 98 Nasal Cannula* 2 28 12/11/24 16:25 98.1 49 15 108/56 99 Nasal Cannula* 2 28 12/11/24 15:58 97.9 50 20 106/38 98 Nasal Cannula* 2 28 12/11/24 15:18 99.0 52 18 115/54 97 LABS: Hematology Labs: Test 12/11/24 15:29 Range/Units White Blood Count 19.5 H 4.8-10.8 K/uL Red Blood Count 5.22 4.50-6.20 MIL/uL Hemoglobin 15.9 14.0-18.0 g/dL Hematocrit 47.5 42-54 % Mean Corpuscular Volume 91.0 79-99 fL Mean Corpuscular Hemoglobin 30.5 27.0-33.0 pg Mean Corpuscular Hemoglobin Concent 33.5 32.0-36.0 g/dL Red Cell Distribution Width 12.3 11.0-15.5 % Platelet Count 347 130-400 K/uL Mean Platelet Volume 10.0 7.5-10.5 fL Immature Granulocyte % (Auto) 0.8 0-1 % Neutrophils (%) (Auto) 84.1 H 40.0-77.0 % Lymphocytes (%) (Auto) 7.0 L 21.0-51.0 % Monocytes (%) (Auto) 7.8 3.0-13.0 % Eosinophils (%) (Auto) 0.1 0.0-8.0 % Basophils (%) (Auto) 0.2 0.0-5.0 % Neutrophils # (Auto) 16.4 H 1.8-7.7 K/uL Lymphocytes # (Auto) 1.4 1.0-4.8 K/uL Monocytes # (Auto) 1.5 H 0.1-1.0 K/uL Eosinophils # (Auto) 0.01 0.00-0.70 K/uL Basophils # (Auto) 0.04 0.00-0.20 K/uL Absolute Immature Granulocyte (auto 0.16 0-1 K/uL Nucleated Red Blood Cells 0.0 0.0-0.19 % White Cell Morphology Comment See comments Chemistry Labs: Test 12/11/24 17:30 12/11/24 15:29 Range/Units Whole Blood Glucose 368 H 70-110 MG/DL Sodium Level 134 L 136-145 mmol/L Potassium Level 4.5 3.5-5.1 mmol/L Chloride Level 95 L 101-111 mmol/L Carbon Dioxide Level 23 21-32 mmol/L Blood Urea Nitrogen 47 H 7-18 mg/dL Creatinine 3.0 H 0.5-1.3 mg/dL Glomerular Filtration Rate Calc 20 >90 mL/min Random Glucose 390 H 70-105 mg/dL Hemoglobin A1c 9.3 H 4.0-6.0 % Estimated Average Glucose (eAG) 220 H 70-126 mg/dL Total Calcium 8.8 8.5-10.1 mg/dL Total Bilirubin 0.9 0.2-1.0 mg/dL Direct Bilirubin 0.1 0.0-0.3 mg/dL Aspartate Amino Transf (AST/SGOT) 55 H 10-37 U/L Alanine Aminotransferase (ALT/SGPT) 35 12-78 U/L Alkaline Phosphatase 154 H 50-136 U/L Troponin I High Sensitivity > [id number] *H 4-75 ng/L C-Reactive Protein, Quantitative 41.00 H 0.5-3.0 mg/L B-Type Natriuretic Peptide 746 H 0-100 pg/mL Total Protein 8.2 6.0-8.3 g/dL Albumin 1.9 L 3.5-5.0 g/dL Procalcitonin 0.11 0.05-0.5 ng/mL Thyroid Stimulating Hormone (TSH) 4.04 H 0.36-3.74 uIU/mL Coagulation Labs: Test 12/11/24 15:40 Range/Units Activated Partial Thromboplast Time 26.3 26.3-35.5 SEC DIAGNOSTICS / RADIOLOGY RESULTS: [ ] PLAN Admit to medical floor with telemetry monitoring. Continue heparin drip. Cardiology was consulted and has seen the patient. Aspirin 81 mg p.o. daily. Atorvastatin 40 mg p.o. q.h.s.. Nitroglycerin sublingually as needed for chest pain. Trend EKG and troponin. 2D echo in [facility] heart clinic to read. Trend WBCs, obtain blood cultures. Start antibiotic: Rocephin IV and doxy IV Pending demographic analyst consultation. Reconciles home medications once available. Monitor renal and liver function. Monitor electrolytes and treat accordingly. Strict I&Os. P.r.n. medications for nausea, vomiting, constipation, hypertension, fever. Oxygen supplementation as needed to keep SpO2 equal to greater than 92%. Blood pressures every4 hours and p.r.n.. DVT and GI prophylaxis. A.m. labs. NEURO: Minimize central acting medications as possible. Fall Precautions. Well lighted room through the day and minimize interruptions through the night to prevent acute delirium. PULMONARY: Supplemental 02 as needed Titrate Fio2 to keep Spo2 > or = 90% DuoNebs and CPT as needed IS hourly while awake for pulmonary hygiene Out of bed to chair as tolerated VAP Bundle CARDIOVASCULAR: Follow hemodynamics. Titrate vasopressor to keep MAP >65 or systolic blood pressure >95mmHg GI & NUTRITION: Continue nutritional support Aspirations precautions Prokinetic agents and laxatives as needed KIDNEYS & ELECTROLYTES: Strict monitoring of intake and output Daily weights Avoid nephrotoxic agents Monitor electrolytes and replace as needed Goal urine output of 30mL/hr or 0.5mL/kg/hr ENDOCRINE: Maintain blood glucose between 100-180 at all times. Insulin sliding scale for blood glucose management INFECTIOUS DISEASE: Trend temperature. Child-culture if febrile. HEMATOLOGY & COAGULATION: Monitor H&H. Keep Hgb > 7 Transfuse 1 unit of PRBC for Hgb < 7 Transfuse 1 pack of platelets of platelets < 20, 000 Watch for any signs and symptoms of bleeding SKIN: Pressure ulcer prevention per facility protocol Rehab: PT/OT Code Status: Full Resuscitation Disposition: [Admit to ICU ] Other: Total patient critical care time exceeds 45 minutes excluding all procedures. ATTESTATION BY PHYSICIAN I reviewed the documentation, medical decision making, and treatment plan as noted by the JADE above. I agree with the findings and plan of care. Brennen Yang MD, [facility] Dec 11, 2024 18:29
--- NOTE | 2024-12-11 20:14 | NUR ---
REPORT GIVEN TO MEME ELLIOTT
[2024-12-11 20:47] LABS: CREATININE,URINE RANDOM 227.70 mg/dL (30-135)
[2024-12-11 20:48] LABS: APPEARANCE,URINE CLEAR (CLEAR); GLUCOSE, URINE (UA) >=1000 mg/dL (NEGATIVE); LEUKOCYTE ESTERASE ,URINE NEGATIVE Leu/uL (NEGATIVE); NITRATE,URINE NEGATIVE (NEGATIVE); OCCULT BLOOD,URINE SMALL (NEGATIVE)
[2024-12-11 20:49] LABS: ADD UA MICROSCOPIC YES
[2024-12-11 20:54] LABS: OTHER CASTS, URINE 7 /LPF (None Seen)
--- NOTE | 2024-12-11 21:00 | NUR ---
REPORT RECEIVED FROM THAO ELLIOTT, RECEIVED PATIENT AT AROUND 2100, PATIENT AOX4, HAS TROUBLE HEARING, VITALS CHARTED, IN NO DISTRESS AT THE MOMENT, ASLEEP, ALL BELONGINGS IN HIS BAG
--- NOTE | 2024-12-11 23:33 | HMCIMG ---
EXAMINATION: ULTRASOUND OF THE RETROPERITONEUM. CLINICAL HISTORY: Renal failure. COMPARISON: None. TECHNIQUE: Real-time grayscale ultrasound images of the kidneys. FINDINGS: The kidneys are normal in caliber, the right kidney measures 8.9 x 4.9 x 4.6 cm and the left kidney measures 11.4 x 6.9 x 4.8 cm in its craniocaudal, AP, and transverse dimensions respectively. There is normal renal cortical thickness, and cortical echogenicity. There is no renal calculus or hydronephrosis. There are simple cortical cysts that measure 1.9 x 2.0 x 1.7 cm in the upper pole, 4.0 x 2.8 x 2.7 cm in the mid pole, 9.5 x 7.5 x 7.3 cm in the lower pole of the right kidney. There are simple cortical cysts that measure 5.0 x 3.4 x 4.5 cm and 5.9 x 3.6 x 3.9 cm in the mid to lower pole of the left kidney. There is a parapelvic cyst that measures 1.1 x 1.0 cm in the mid pole of the left kidney. The urinary bladder is normal in caliber and wall thickness (0.25 cm). There are no calculi in the urinary bladder. IMPRESSION: Bilateral simple renal cortical cysts. Left renal parapelvic cyst. /[place]
[2024-12-12] VITALS (53 sets, daily range): BP systolic 107–144; BP diastolic 54–74; PULSE 51–59; RESP 17–71; TEMP 97.9–99.4; O2SAT 93–97
--- NOTE | 2024-12-12 02:02 | NUR ---
SPOKE WITH KARLIE KNIGHT ABOUT PATIENT IN ROOM 215, UPDATED KARLIE ON PATIENT STATUS AND PATIENT CONDITION WHICH HE IS COMPLAINING OF NAUSEA, HE GAVE AN ORDER FOR ZOFRAN 4MG Q6
[2024-12-12 04:01] LABS: NUCLEATED RED BLOOD CELLS 0.0 % (0.0-0.19); PLATELET COUNT (AUTO) 341.0 K/uL (130-400); RED BLOOD CELL COUNT(AUTO) 4.85 MIL/uL (4.50-6.20); RED CELL DISTRIBUTION WIDTH 12.2 % (11.0-15.5); WHITE BLOOD COUNT (AUTO) 23.7 K/uL (4.8-10.8)
[2024-12-12 04:36] LABS: ASPARTATE AMINOTRANSFERASE 455.0 U/L (10-37); CREATININE 2.3 mg/dL (0.5-1.3); GLOMERULAR FILTR. RATE CALC 28.0 mL/min (>90); GLUCOSE,RANDOM 193.0 mg/dL (70-105); PHOSPHORUS 3.5 mg/dL (2.5-4.9); SODIUM SERUM 138.0 mmol/L (136-145); TOTAL PROTEIN, SERUM 7.5 g/dL (6.0-8.3); UREA NITROGEN, BLOOD 58.0 mg/dL (7-18)
[2024-12-12] MEDS: DOXYCYCLINE 100MG+NS 250ML 250 ML IV SCH (05:02)
--- NOTE | 2024-12-12 06:21 | EKG ---
[facility] Test Date: 2024-12-12 Test Time: 05:39:07 Pat Name: OLEG FERRARO Department: [facility] Room: 215 1 Gender: M Chrome Tanner: : 1945 Requested By: JOSE MANUEL DICKSON Order Number: [id number] Reading MD: Martine Leavitt Measurements Intervals [place] Rate: 54 P: 65 RI: 0 QRS: 40 QRSD: 104 T: 30 QT: 470 QTc: 445 Interpretive Statements Sinus tachycardia with AV dissociation and Junctional rhythm with sinus/atrial capture Inferior infarct , possibly acute Lateral injury pattern ACUTE IA / STEMI Consider right ventricular involvement in acute inferior infarct Compared to ECG 12/11/2024 15:25:43 Junctional rhythm now present AV dissociation now present 2:1 AV block no longer present Myocardial infarct finding still present Electronically Signed On 12-13-2024 16:11:09 CDT by Martine Leavitt Please click the below link to view image of tracing.
--- NOTE | 2024-12-12 06:29 | CONS ---
NEPHROLOGY CONSULTATION DATE OF SERVICE: 12/11/2024. REASON FOR CONSULTATION: Renal failure and multiple comorbidities. HISTORY OF PRESENT ILLNESS: This patient has underlying diabetes and hypertension. A 79-year-old male admitted with chest pain in the retrosternal area. The patient has been found to have elevated WBC count of and elevated BUN and creatinine. The patient has apparently acute NE and followed by editorial intern. No other associated findings. No other aggravating or relieving factors. PAST MEDICAL HISTORY: Diabetes, hypertension. SOCIAL HISTORY: No smoking, alcohol, or drug abuse. FAMILY HISTORY: Not pertinent. PAST SURGICAL HISTORY: Surgery in the left shoulder. ALLERGIES: No allergies. REVIEW OF SYSTEMS: CONSTITUTIONAL: No fevers, chills, or rigors. HEENT: With no headache, ulcers, sore throat, or difficulty swallowing. RESPIRATORY: With no cough, expectoration, hemoptysis, or pleuritic pain. CARDIOVASCULAR: With no orthopnea or PND. He has chest pain as described and shortness of breath. GASTROINTESTINAL: Negative for nausea, vomiting, or diarrhea. GENITOURINARY: Negative for dysuria. No previous stone. MUSCULOSKELETAL: With no joint swelling, redness, or inflammation. DERMATOLOGIC: No rashes, pruritus or skin lesions. ENDOCRINE: No polyuria, polydipsia, or polyphagia. LYMPHATIC AND HEMATOPOIETIC: No bleeding tendencies or swelling noted in lymph node areas. NEUROLOGIC: No seizures or syncope. MUSCULOSKELETAL: No joint swelling, redness, or inflammation. PSYCHIATRIC: Negative for anxiety, depression, hallucinations. Other systemic review is unchanged. PHYSICAL EXAMINATION: GENERAL: Pale, no other distress. VITAL SIGNS: Blood pressure is 116/59, pulse is 47, respiratory rate 20, afebrile. HEENT: Head is atraumatic, normocephalic. Pupils are round, reactive. Sclerae anicteric. Conjunctivae not pale. Oral mucosa is not dry. NECK: Supple. No masses or bruits. Thyroid is palpable. Neck has no bruits. CHEST: Shows equal thoracic percussion note being resonant in all areas. CARDIAC: Regular rhythm. No rub. No S3 or S4. No parasternal heave. ABDOMEN: No guarding or tenderness. Bowel sounds are normoactive. No free fluid. No rebound, rigidity, tenderness. EXTREMITIES: With no edema and no cyanosis or clubbing. NEUROLOGIC: Awake, alert, nonfocal with no cranial nerve palsies. BACK: No back tenderness or back deformities. LABORATORY DATA: Labs have shown elevated WBC count 19.5. Hemoglobin is 15.9. Platelets were normal. Urine has been ordered. Coagulation studies are stable. Elevated troponin has been present. The patient has a creatinine of 3, BUN of 47, sodium is 134. IMAGING STUDIES: Imaging studies personally reviewed. Chest x-ray has been done with no acute findings. Mild basilar infiltrates. Old records have been reviewed. PROBLEMS: * Acute myocardial infarction with acute renal failure. * The patient has underlying diabetic nephropathy. * The patient has underlying hypertension, elderly. * The patient has underlying hyperlipidemia. * Hyponatremia. * The patient has some nausea, vomiting, and dizziness with chest pain, on remission with inferior Q-wave. * The patient's condition is critical. PLAN: * Urinalysis. * Renal ultrasound if not done. * The patient will have intake and output monitoring. * One Nephro-Dorothea daily. * Please avoid nonsteroidal drugs. * IV Dilaudid can be used for pain 0.5 mg q. 6 h. * We have reviewed the lab, x-rays, imaging studies personally. * Discussed with the team physician. * Old and external records have been reviewed. * Avoid any contrast if possible. If contrast is given, risk will be there for further renal worsening unless the contrast is absolutely necessary. * The patient will have a followup on blood pressure, electrolyte, renal function, and overall status. * TSH and uric acid also will be done. * Condition remains critical and guarded. * Discussed with other team physicians. Thank you for this patient. Condition is critical. TID: [id number] RECEIPT: [id number]
--- NOTE | 2024-12-12 07:31 | PN ---
[facility] Cardiology Progress Note CARDIOLOGY PROGRESS NOTE DECEMBER 12, 2024 Problems: 1. Acute inferior wall myocardial infarction with late presentation 48 hours after onset, pain-free at the time of my evaluation and initial troponin of 253134 and Q-waves inferiorly 2. 3. Diabetes mellitus type 2 4. Acute on chronic kidney disease stage 4 5. Hypertension 6. Dyslipidemia The patient has had no further angina pain but does relate that he has some pain when he coughs. He does take tramad[facility] on a p[facility] and has [facility] that here. Heart rhythm on admission was sinus bradycardia with AV dissociation. This morning he is in sinus with two-to-one AV block. Blood pressure is running 120-130 systolic heart rate is in the 50s. Creatinine has gone from 3.0 2.3. Creatinine a month or two ago was 1.0. Potassium 3.7. Troponins are [place]ing [place] 125833 [place] [id number] this morning. Renal sonogram shows bilateral simple cortical cyst. No evidence of hydronephrosis. 2D echocardiogram is pending this morning. The patient continues on aspirin atorvastatin clopidogrel heparin protocol insulin scale and doxycycline. Because of bradycardia and heart block beta blockers have not been administered. 2D echocardiogram this morning is pending. We will ask Dr. Malone to see the patient in consultation. LEESA MACIAS MD Dec 12, 2024 07:31
[2024-12-12] MEDS: ASPIRIN 81MG CHEW TAB PO SCH (08:06)
[2024-12-12] MEDS: Vitamin B Complex/Vit C/Folic Acid PO SCH (08:06)
--- NOTE | 2024-12-12 10:32 | PN ---
[facility] PROGRESS NOTE Date of Service: Dec 12, 2024 Time of Service: 10:32 SUBJECTIVE: [Mr. Shailesh Yang is a 79-year-old male with a history of type 2 diabetes mellitus, hypertension, dyslipidemia, and chronic kidney disease (CKD) stage 4, who presented with chest pain. The chest pain began two days prior to admission, described as pressure-like, localized to the right sternal area, non-radiating, and resolved upon arrival to the hospital. He denies associated symptoms such as vomiting, fever, chills, cough, shortness of breath, abdominal pain, or dysuria. He did report episodes of nausea without vomiting. No recent falls or syncopal episodes. He takes insulin and metformin at home, with no prior renal issues or changes in urination. He requests tramadol for pain, which he uses as needed for chronic pain. ] REVIEW OF SYSTEMS CONSTITUTIONAL: Denies fevers, chills, or night sweats. No unintentional weight loss reported. NEUROLOGICAL: Denies headache, amaurosis fugax, motor weakness, sensory deficit, vertigo/spinning sensation, gait abnormalities, or tremors. ENT: No hearing loss, otalgia, otorrhea, rhinitis, rhinorrhea, hoarseness, or sore throat. CARDIOVASCULAR: Positive for chest pain. Denied any cough, shortness of breath, orthopnea, PND PULMONARY: Denies any shortness of breath, cough, phlegm/sputum, hemoptysis, pleuritic chest pain. GASTROINTESTINAL: Denies any type of dysphagia to either liquids or solids. Denies nausea, vomiting, pyrosis, early satiety, abdominal pain, diarrhea, c onstipation, or changes in stool consistency or caliber. Denies coffee-ground emesis, hematemesis, hematochezia, or melanotic stools. GENITOURINARY: Denies frequency, urgency, nocturia, hematuria or incontinence (Storage/Irritative symptoms.) Low urinary stream, straining to void, urinary intermittency or hesitancy, splitting of the voiding stream, terminal dribbling. ENDOCRINOLOGIC: Denies polyuria, polydipsia, polyphagia or heat/cold intolerances. HEMATOLOGIC: Denies thrombophilia/previous clots, or coagulopathy/bleeding disorders. ONCOLOGIC: Denies personal history of malignancy. DERMATOLOGIC: Denies rashes or pruritus. PSYCHIATRIC: Denies any suicidal or homicidal ideation. Denies hallucinations. PHYSICAL EXAM GENERAL APPEARANCE: The patient is awake, alert, and oriented, in no acute ca rdiopulmonary distress. NEUROLOGICAL: Cranial nerves II-XII grossly intact. Motor is 5/5 in bilateral upper and lower extremities proximal to distal. No sensory deficits. HEENT: Face is symmetric. Pupils are equal and reactive. Extraocular movements are intact. NECK: Supple. No JVD. No thyromegaly. No submental, submandibular, pre- /postauricular, occipital or supraclavicular lymphadenopathy. CHEST: Normal chest expansion. No Telemetry. LUNGS: Absence of any rales, rhonchi or any wheezing. CARDIOVASCULAR: Regular. S1 and S2 normal. No appreciable rubs, murmurs or gallops. ABDOMEN: Soft, nontender, and nondistended. There is no rebound, voluntary guarding, or rigidity. : Deferred. No Love. EXTREMITIES: Non-edematous and not cyanotic. No clubbing. Good capillary refill. SKIN: No skin breakdown. Vital Signs (last 8hr) Date Time Temp Pulse Resp B/P (MAP) Pulse Ox O2 Delivery O2 Flow Rate FiO2 12/12/24 07:57 93 Nasal Cannula* 4 36 12/12/24 07:55 99.1 54 20 124/66 93 12/12/24 06:30 54 24 130/65 89 12/12/24 06:15 54 21 126/64 91 12/12/24 06:00 54 25 124/63 92 12/12/24 05:45 54 24 124/66 93 12/12/24 05:30 54 25 131/70 93 12/12/24 05:15 54 26 130/67 94 12/12/24 05:00 54 22 126/61 97 12/12/24 04:45 54 24 127/67 94 12/12/24 04:30 54 24 138/72 93 12/12/24 04:15 54 32 137/70 92 12/12/24 04:00 99.3 54 71 129/62 94 12/12/24 04:00 93 Nasal Cannula* 4 36 12/12/24 03:45 54 22 128/61 93 12/12/24 03:30 54 23 116/60 94 12/12/24 03:15 54 23 128/59 96 12/12/24 03:00 54 23 128/59 96 12/12/24 02:45 55 24 122/58 96 LABS: Laboratory: Test 12/12/24 10:01 12/12/24 06:22 12/12/24 03:33 12/11/24 20:35 Range/Units Activated Partial Thromboplast Time 75.2 H 26.3-35.5 SEC Whole Blood Glucose 206 H 70-110 MG/DL White Blood Count 23.7 H 4.8-10.8 K/uL Red Blood Count 4.85 4.50-6.20 MIL/uL Hemoglobin 15.0 14.0-18.0 g/dL Hematocrit 43.8 42-54 % Mean Corpuscular Volume 90.3 79-99 fL Mean Corpuscular Hemoglobin 30.9 27.0-33.0 pg Mean Corpuscular Hemoglobin Concent 34.2 32.0-36.0 g/dL Red Cell Distribution Width 12.2 11.0-15.5 % Platelet Count 341 130-400 K/uL Mean Platelet Volume 10.7 H 7.5-10.5 fL Nucleated Red Blood Cells 0.0 0.0-0.19 % Sodium Level 138 136-145 mmol/L Potassium Level 3.7 3.5-5.1 mmol/L Chloride Level 99 L 101-111 mmol/L Carbon Dioxide Level 26 21-32 mmol/L Blood Urea Nitrogen 58 H 7-18 mg/dL Creatinine 2.3 H 0.5-1.3 mg/dL Glomerular Filtration Rate Calc 28 >90 mL/min Random Glucose 193 #H 70-105 mg/dL Uric Acid 10.3 H 2.6-7.2 mg/dL Total Calcium 8.7 8.5-10.1 mg/dL Phosphorus Level 3.5 2.5-4.9 mg/dL Magnesium Level 2.60 H 1.80-2.40 mg/dL Total Bilirubin 0.8 0.2-1.0 mg/dL Aspartate Amino Transf (AST/SGOT) 455 H 10-37 U/L Alanine Aminotransferase (ALT/SGPT) 66 # 12-78 U/L Alkaline Phosphatase 127 50-136 U/L Troponin I High Sensitivity 344125 *H 4-75 ng/L Total Protein 7.5 6.0-8.3 g/dL Albumin 3.2 #L 3.5-5.0 g/dL Thyroid Stimulating Hormone (TSH) 1.51 # 0.36-3.74 uIU/mL Urine Color YELLOW YELLOW Urine Appearance CLEAR CLEAR Urine pH 5.5 5.0-8.0 Urine Specific [place] 1.024 1.001-1.031 Urine Protein 30 H NEGATIVE mg/dL Urine Glucose (UA) >=1000 H NEGATIVE mg/dL Urine Ketones NEGATIVE NEGATIVE mg/dL Urine Occult Blood SMALL H NEGATIVE Urine Nitrate NEGATIVE NEGATIVE Urine Bilirubin NEGATIVE NEGATIVE mg/dL Urine Urobilinogen 0.2 0.2-1.0 mg/dL Urine Leukocyte Esterase NEGATIVE NEGATIVE Melia/uL Urine RBC 0-1 0-1 /HPF Urine WBC 2-5 H 0-1 /HPF Urine Bacteria RARE None Seen /HPF Urine Hyaline Casts 6-10 H 0-1 /LPF /LPF Urine Other Casts 7 None Seen /LPF Urine Random Creatinine 227.70 H 30-135 mg/dL Urine Random Sodium < 13 L 40-220 mmol/l Urine Random Potassium 78 25-125 mmol/L Urine Random Chloride 32 L 110-250 mmol/L Test 12/11/24 15:29 Range/Units Immature Granulocyte % (Auto) 0.8 0-1 % Neutrophils (%) (Auto) 84.1 H 40.0-77.0 % Lymphocytes (%) (Auto) 7.0 L 21.0-51.0 % Monocytes (%) (Auto) 7.8 3.0-13.0 % Eosinophils (%) (Auto) 0.1 0.0-8.0 % Basophils (%) (Auto) 0.2 0.0-5.0 % Neutrophils # (Auto) 16.4 H 1.8-7.7 K/uL Lymphocytes # (Auto) 1.4 1.0-4.8 K/uL Monocytes # (Auto) 1.5 H 0.1-1.0 K/uL Eosinophils # (Auto) 0.01 0.00-0.70 K/uL Basophils # (Auto) 0.04 0.00-0.20 K/uL Absolute Immature Granulocyte (auto 0.16 0-1 K/uL White Cell Morphology Comment See comments Hemoglobin A1c 9.3 H 4.0-6.0 % Estimated Average Glucose (eAG) 220 H 70-126 mg/dL Direct Bilirubin 0.1 0.0-0.3 mg/dL C-Reactive Protein, Quantitative 41.00 H 0.5-3.0 mg/L B-Type Natriuretic Peptide 746 H 0-100 pg/mL Procalcitonin 0.11 0.05-0.5 ng/mL Current Medications Medications (Trade) Dose Ordered Sig/Kermit Route PRN Reason Start Time Stop Time Status Last Admin Dose Admin Acetaminophen (TYLenol 500MG TAB) 500 mg Q6H PRN PO MILD PAIN (1-3) 12/11/24 16:30 01/10/25 16:29 Aspirin (Aspirin 81mg Chew Tab) 81 mg DAILY PO 12/12/24 09:00 01/11/25 08:59 12/12/24 08:06 81 MG Atorvastatin Calcium (LIPItor 20MG) 20 mg HS PO 12/11/24 21:00 01/10/25 20:59 12/11/24 20:32 20 MG Ceftriaxone Sodium (Rocephin 2gm Inj) 2 gm Q24H IVPB 12/12/24 04:30 12/22/24 04:29 12/12/24 05:02 2 GM Clopidogrel Bisulfate (plaVIX 75MG) 75 mg DAILY PO 12/12/24 09:00 01/11/25 08:59 12/12/24 08:06 75 MG Doxycycline Hyclate 250 ml @ 125 mls/hr Q12H IV 12/12/24 04:30 12/22/24 04:29 12/12/24 05:02 125 MLS/HR Heparin Sodium (Porcine) (HEParin 5,000 UNIT VIAL) *calculation based on ACTUAL B... AD PRN IV HEPARIN PROTOCOL 12/11/24 16:30 01/10/25 16:29 Heparin Sodium/ Dextrose 250 ml @ 0 mls/hr Q6H IV 12/11/24 16:30 01/10/25 16:29 Insulin Human Regular (humuLIN R 100 UNIT/ML 3ML) INSULIN SLIDING SCAL... ACHS SQ 12/11/24 16:30 01/10/25 16:29 12/12/24 06:42 3 UNIT Metoprolol Tartrate (loprESSOR) 25 mg BID PO 12/11/24 21:00 12/11/24 17:12 DC Ondansetron HCl (zoFRAN 4MG INJ) 4 mg Q6H PRN IVP NAUSEA/VOMITING 12/12/24 02:30 01/11/25 02:29 12/12/24 02:13 4 MG Sodium Chloride 500 ml @ 0 mls/hr Q0M IV 12/11/24 17:00 01/10/25 16:59 Tramadol/ Acetaminophen (UltraCET) 1 tab Q6H PRN PO PAIN LEVEL 7 TO 10 12/12/24 08:00 12/17/24 07:59 12/12/24 08:12 1 TAB Vitamin B Complex/ Vit C/Folic Acid (Nephrovite Tablet) 1 cap DAILY PO 12/12/24 09:00 01/11/25 08:59 12/12/24 08:06 1 CAP DIAGNOSTICS / RADIOLOGY: [ ] ASSESSMENT: Acute inferior wall myocardial infarction (late presentation, 48 hours after onset), currently pain-free, Q-waves inferiorly, troponin downtrending. Type 2 diabetes mellitus. Acute on chronic kidney disease, stage 4 (creatinine increased from baseline, now improving). Hypertension. Dyslipidemia. 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 Pain with cough and deep inspiration, likely musculoskeletal or post-infarct. PLAN: Patient to continue admitted to ICU Continue dual antiplatelet therapy (aspirin, clopidogrel), atorvastatin, and heparin protocol. Continue insulin sliding scale for glycemic control. Hold beta blockers due to bradycardia and AV block. Monitor cardiac rhythm; external pacemaker in place. Monitor renal function and electrolytes closely. Await 2D echocardiogram results for further cardiac assessment. Pain management: Continue tramadol as needed, monitor for side effects. Infectious workup: Continue doxycycline as per protocol. Cardiology (Dr. Malone) to follow for further management and pacemaker evaluation. Monitor for recurrence of chest pain, arrhythmias, or signs of heart failure. Educate patient on activity restrictions and warning signs. Case seen and discussed plan with Dr. Laughlin, above plan was formulated ATTESTATION BY PHYSICIAN I have seen and examined the patient. I reviewed the documentation, medical decision making, and treatment plan as noted by the mid-level provider above. I agree with the findings and plan of care. Tomeka Soriano MD, JANICE B AGPCNP Dec 12, 2024 10:32
--- NOTE | 2024-12-12 10:48 | NUR ---
DCP: HOME Pt sleeping soundly, Brother Jeff Yang [phone] and grandmike Yang jr at bedside. Stephy states he was raised by pt like a son. Grandson lives with in pt's home. P is retired [employer], is seen a [facility] by Lynda Avery, for medical care and meds. Pt uses a cane, has no in home care services. Pt is independent of his self care and drives. Grandmike assists as needed. states he will take pt home to his home until pt can return to pt's home. Addendum: 12/12/24 at 1054 by ALEX SANCHEZ Amended: Links added.
--- NOTE | 2024-12-12 12:44 | PN ---
NEPHROLOGY PROGRESS NOTE Date/Time Patient Seen: Dec 12, 2024 SUBJECTIVE: This is a 79-year-old male with past medical history of diabetes mellitus type He presented to the hospital secondary to chest pain. The patient has been found to have elevated WBC count and elevated BUN and creatinine. The patient has apparently acute DE and followed by fell cutter. No other associated findings. No other aggravating or relieving factors. On arrival to ED the patient had ST-elevation in inferior leads with associated Q-waves. Code STEMI was called. Patient was evaluated by Cardiology. He continues on heparin drip. Left heart catheterization was held due to bradycardia. Pending EP evaluation. He continues with leukocytosis Continues on antibiotics He was noted to have elevated BUN/creatinine We have been consulted for renal failure Renal function is improving Electrolytes are stable Renal ultrasound was noted He was seen in the ICU, in no acute distress Family at the bedside Condition is critical and guarded REVIEW OF SYSTEMS: GENERAL: Negative for any nausea, vomiting, fevers, chills, or weight loss. NEUROLOGIC: Negative for any blurry vision, blind spots, double vision, facial asymmetry, dysphagia, dysarthria, hemiparesis, hemisensory deficits, vertigo, ataxia. HEENT: Negative for any head trauma, neck trauma, neck stiffness, photophobia, phonophobia, sinusitis, rhinitis. CARDIAC: Negative for any chest pain, dyspnea on exertion, paroxysmal nocturnal dyspnea, peripheral edema. PULMONARY: Negative for any shortness of breath, wheezing, COPD, or TB exposure. GASTROINTESTINAL: Negative for any abdominal pain, nausea, vomiting, bright red blood per rectum, melena. GENITOURINARY: Negative for any dysuria, hematuria, incontinence. INTEGUMENTARY: Negative for any rashes, cuts, insect bites. RHEUMATOLOGIC: Negative for any joint pains, photosensitive rashes, history of vasculitis or kidney problems. HEMATOLOGIC: Negative for any abnormal bruising, frequent infections or bleeding. Vital Signs (last 8hr) Date Time Temp Pulse Resp B/P (MAP) Pulse Ox O2 Delivery O2 Flow Rate FiO2 12/12/24 07:57 93 Nasal Cannula* 4 36 12/12/24 07:55 99.1 54 20 124/66 93 12/12/24 06:30 54 24 130/65 89 12/12/24 06:15 54 21 126/64 91 12/12/24 06:00 54 25 124/63 92 12/12/24 05:45 54 24 124/66 93 12/12/24 05:30 54 25 131/70 93 12/12/24 05:15 54 26 130/67 94 12/12/24 05:00 54 22 126/61 97 12/12/24 04:45 54 24 127/67 94 PHYSICAL EXAM: GENERAL: Alert and oriented x 3. No acute distress. Well-nourished. EYES: EOMI. Anicteric. HENT: Moist mucous membranes. No scleral icterus. No cervical lymphadenopathy. LUNGS: Clear to auscultation bilaterally. No accessory muscle use. CARDIOVASCULAR: Regular rate and rhythm. No murmur. No JVD. ABDOMEN: Soft, non-tender and non-distended. No palpable masses. EXTREMITIES: No edema. Non-tender. SKIN: No rashes or lesions. Warm. NEUROLOGIC: No focal neurological deficits. CN II-XII grossly intact, but not individually tested. PSYCHIATRIC: Cooperative. Appropriate mood and affect. Current Medications Medications (Trade) Dose Ordered Sig/Kermit Route PRN Reason Start Time Stop Time Status Last Admin Dose Admin Acetaminophen (TYLenol 500MG TAB) 500 mg Q6H PRN PO MILD PAIN (1-3) 12/11/24 16:30 01/10/25 16:29 Aspirin (Aspirin 81mg Chew Tab) 81 mg DAILY PO 12/12/24 09:00 01/11/25 08:59 12/12/24 08:06 81 MG Atorvastatin Calcium (LIPItor 20MG) 20 mg HS PO 12/11/24 21:00 01/10/25 20:59 12/11/24 20:32 20 MG Ceftriaxone Sodium (Rocephin 2gm Inj) 2 gm Q24H IVPB 12/12/24 04:30 12/22/24 04:29 12/12/24 05:02 2 GM Clopidogrel Bisulfate (plaVIX 75MG) 75 mg DAILY PO 12/12/24 09:00 01/11/25 08:59 12/12/24 08:06 75 MG Doxycycline Hyclate 250 ml @ 125 mls/hr Q12H IV 12/12/24 04:30 12/22/24 04:29 12/12/24 05:02 125 MLS/HR Heparin Sodium (Porcine) (HEParin 5,000 UNIT VIAL) *calculation based on ACTUAL B... AD PRN IV HEPARIN PROTOCOL 12/11/24 16:30 01/10/25 16:29 Heparin Sodium/ Dextrose 250 ml @ 0 mls/hr Q6H IV 12/11/24 16:30 01/10/25 16:29 12/12/24 11:27 0 MLS/HR Insulin Human Regular (humuLIN R 100 UNIT/ML 3ML) INSULIN SLIDING SCAL... ACHS SQ 12/11/24 16:30 01/10/25 16:29 12/12/24 11:28 3 UNIT Metoprolol Tartrate (loprESSOR) 25 mg BID PO 12/11/24 21:00 12/11/24 17:12 DC Ondansetron HCl (zoFRAN 4MG INJ) 4 mg Q6H PRN IVP NAUSEA/VOMITING 12/12/24 02:30 01/11/25 02:29 12/12/24 02:13 4 MG Sodium Chloride 500 ml @ 0 mls/hr Q0M IV 12/11/24 17:00 01/10/25 16:59 Tramadol/ Acetaminophen (UltraCET) 1 tab Q6H PRN PO PAIN LEVEL 7 TO 10 12/12/24 08:00 12/17/24 07:59 12/12/24 08:12 1 TAB Vitamin B Complex/ Vit C/Folic Acid (Nephrovite Tablet) 1 cap DAILY PO 12/12/24 09:00 01/11/25 08:59 12/12/24 08:06 1 CAP LABORATORY: [ ] Hematology Labs: Test 12/12/24 03:33 12/11/24 15:29 Range/Units White Blood Count 23.7 H 4.8-10.8 K/uL Red Blood Count 4.85 4.50-6.20 MIL/uL Hemoglobin 15.0 14.0-18.0 g/dL Hematocrit 43.8 42-54 % Mean Corpuscular Volume 90.3 79-99 fL Mean Corpuscular Hemoglobin 30.9 27.0-33.0 pg Mean Corpuscular Hemoglobin Concent 34.2 32.0-36.0 g/dL Red Cell Distribution Width 12.2 11.0-15.5 % Platelet Count 341 130-400 K/uL Mean Platelet Volume 10.7 H 7.5-10.5 fL Nucleated Red Blood Cells 0.0 0.0-0.19 % Immature Granulocyte % (Auto) 0.8 0-1 % Neutrophils (%) (Auto) 84.1 H 40.0-77.0 % Lymphocytes (%) (Auto) 7.0 L 21.0-51.0 % Monocytes (%) (Auto) 7.8 3.0-13.0 % Eosinophils (%) (Auto) 0.1 0.0-8.0 % Basophils (%) (Auto) 0.2 0.0-5.0 % Neutrophils # (Auto) 16.4 H 1.8-7.7 K/uL Lymphocytes # (Auto) 1.4 1.0-4.8 K/uL Monocytes # (Auto) 1.5 H 0.1-1.0 K/uL Eosinophils # (Auto) 0.01 0.00-0.70 K/uL Basophils # (Auto) 0.04 0.00-0.20 K/uL Absolute Immature Granulocyte (auto 0.16 0-1 K/uL White Cell Morphology Comment See comments Chemistry Labs: Test 12/12/24 11:16 12/12/24 03:33 12/11/24 15:29 Range/Units Whole Blood Glucose 221 H 70-110 MG/DL Sodium Level 138 136-145 mmol/L Potassium Level 3.7 3.5-5.1 mmol/L Chloride Level 99 L 101-111 mmol/L Carbon Dioxide Level 26 21-32 mmol/L Blood Urea Nitrogen 58 H 7-18 mg/dL Creatinine 2.3 H 0.5-1.3 mg/dL Glomerular Filtration Rate Calc 28 >90 mL/min Random Glucose 193 #H 70-105 mg/dL Uric Acid 10.3 H 2.6-7.2 mg/dL Total Calcium 8.7 8.5-10.1 mg/dL Phosphorus Level 3.5 2.5-4.9 mg/dL Magnesium Level 2.60 H 1.80-2.40 mg/dL Total Bilirubin 0.8 0.2-1.0 mg/dL Aspartate Amino Transf (AST/SGOT) 455 H 10-37 U/L Alanine Aminotransferase (ALT/SGPT) 66 # 12-78 U/L Alkaline Phosphatase 127 50-136 U/L Troponin I High Sensitivity [id number] *H 4-75 ng/L Total Protein 7.5 6.0-8.3 g/dL Albumin 3.2 #L 3.5-5.0 g/dL Thyroid Stimulating Hormone (TSH) 1.51 # 0.36-3.74 uIU/mL Hemoglobin A1c 9.3 H 4.0-6.0 % Estimated Average Glucose (eAG) 220 H 70-126 mg/dL Direct Bilirubin 0.1 0.0-0.3 mg/dL C-Reactive Protein, Quantitative 41.00 H 0.5-3.0 mg/L B-Type Natriuretic Peptide 746 H 0-100 pg/mL Procalcitonin 0.11 0.05-0.5 ng/mL Coagulation Labs: Test 12/12/24 10:01 Range/Units Activated Partial Thromboplast Time 75.2 H 26.3-35.5 [facility] / RADIOLOGY: [address] [address] IMAGING REPORT Signed PATIENT: OLEG FERRARO MR#: [id number] : 1945 SEX: M AGE: 79 LOCATION: [facility] ORDER 45 STATUS: ADM IN REPORT#: [id number] SERVICE 43 REASON: renal failure ORDERING PHYSICIAN: NIMO BERNARD MD PROCEDURE: RENAL - US RENAL SONOGRAM EXAMINATION: ULTRASOUND OF THE RETROPERITONEUM. CLINICAL HISTORY: Renal failure. COMPARISON: None. TECHNIQUE: Real-time grayscale ultrasound images of the kidneys. FINDINGS: The kidneys are normal in caliber, the right kidney measures 8.9 x 4.9 x 4.6 cm and the left kidney measures 11.4 x 6.9 x 4.8 cm in its craniocaudal, AP, and transverse dimensions respectively. There is normal renal cortical thickness, and cortical echogenicity. There is no renal calculus or hydronephrosis. There are simple cortical cysts that measure 1.9 x 2.0 x 1.7 cm in the upper pole, 4.0 x 2.8 x 2.7 cm in the mid pole, 9.5 x 7.5 x 7.3 cm in the lower pole of the right kidney. There are simple cortical cysts that measure 5.0 x 3.4 x 4.5 cm and 5.9 x 3.6 x 3.9 cm in the mid to lower pole of the left kidney. There is a parapelvic cyst that measures 1.1 x 1.0 cm in the mid pole of the left kidney. The urinary bladder is normal in caliber and wall thickness (0.25 cm). There are no calculi in the urinary bladder. IMPRESSION: Bilateral simple renal cortical cysts. Left renal parapelvic cyst. /[place] DICTATED BY: SHA LATIF Jr., MD DATE: 12/12/2432 ELECTRONICALLY SIGNED BY: SHA LATIF Jr., MD DATE: 12/12/2432 PATIENT: OLEG FERRARO MR#: [id number] : 1945 SEX: M AGE: 79 LOCATION: [facility] ORDER 25 STATUS: ADM IN REPORT#: [id number] SERVICE 24 REASON: cp ORDERING PHYSICIAN: JULY GANN MD PROCEDURE: CXR1VW - CHEST 1VW EXAM: CR Chest, 1 View. CLINICAL HISTORY: cp COMPARISON: Radiograph dated May 10, 2024 FINDINGS: LUNGS: Mild bibasilar airspace disease may reflect an infectious process versus atelectasis. Continued follow-up is recommended. PLEURAL SPACES: No pleural effusion or pneumothorax. MEDIASTINUM: Cardiac size and mediastinal contours within normal limits. BONES: No acute osseous abnormality. IMPRESSION: 1. Mild bibasilar airspace disease, possibly representing infection or atelectasis. /[place] DICTATED BY: SHA LATIF Jr., MD DATE: 12/11/241733 ELECTRONICALLY SIGNED BY: SHA LATIF Jr., MD DATE: 12/11/241733 ASSESSMENT: Inferior STEMI POA Leukocytosis differential in setting of STEMI versus infection Hyperglycemia secondary to uncontrolled diabetes mellitus type 2 Acute kidney injury Diabetic neuropathy Hypoalbuminemia Mild LFT elevation PLAN: Labs, diagnostic, radiologic exams reviewed and interpreted by myself and supervising physician. We have reviewed external records in detail Pending further EP recommendations Require close monitoring of renal function and electrolytes Order CBC, CMP, u and electrolytes in am Continue with antibiotics BiPAP as necessary, for respiratory distress IV pressors as needed Monitor blood pressure adjust medication doses as needed Avoid hypotensive episodes May use Dilaudid 0.5 mg IV every 6 hours as needed for severe pain Monitor blood sugars Strict intake, output, and daily weight should be monitored Please renally adjust medications Avoid nephrotoxic and nonsteroidal drugs Avoid contrast if possible Will continue to monitor renal function, anemia, electrolytes Treatment plan discussed with patient Questions were answered We have discussed with the other team physicians in detail about the care plan We will continue to monitor the patient closely Total critical care time spent with patient, nursing staff, critical care team over 35 minutes ATTESTATION BY PHYSICIAN I have seen and examined the patient. I reviewed the documentation, medical decision making, and treatment plan as noted by the mid-level provider above. I agree with the findings and plan of care. NIMO BERNARD MD, [facility] Dec 12, 2024 12:44
--- NOTE | 2024-12-12 14:08 | PN ---
[facility] PROGRESS NOTE Date Patient Seen: Dec 12, 2024 Time of Visit: 14:04 Supervising Physician: Dr Laith Degroot Primary Care Physician: Cesario Avery. Attending team: [employer] hospitalist team Outpatient Specialists: Inpatient Consults: BIS, critical Care team Cardiology PROBLEM LIST: STEMI Complete heart block- asymptomatic Mild bibasilar airspace disease, possibly representing infection vs atelectasis, per chest x-ray on 12/11/2024 Hypertension Dyslipidemia Diabetes mellitus type with hyperglycemia CKD stage IV Diabetic neuropathy Elevated LFTs INTERVAL HISTORY: Patient seen and examined, all labs and imaging have been reviewed, patient is sitting comfortably in bed, Patient denies any chest pain or shortness of breath. He is currently on the heparin drip. At goal. Nursing reports plan was a left heart catheterization but due to his bradycardia was held. Pending evaluation by Dr. Rodriguez. Patient's heart rate has been in the mid 40s to 50s this morning. Nursing reports no acute events since admit. Vitals are stable Afebrile Plan: Heparin drip protocol Follow cardiology recs Telemetry NPO Continues on aspirin, statin, Plavix Antibiotics are ceftriaxone and doxycycline, we are following cultures Critical care time 43 minutes, this time excludes any procedures or educational time. REVIEW OF SYSTEMS: 12 point ROS reviewed with patient. Pertinent positives mentioned above. Otherwise negative. PHYSICAL EXAM: GENERAL: Alert, weak, awake oriented x 3 HEENT: EOMI, Sclera non icteric, moist mucosa NECK: Supple, no JVD, trachea midline LUNGS: Clear breath sounds bilaterally. No wheezes HEART: Regular rate and rhythm. Normal S1 and S2, without murmurs ABD: Abdomen soft, nontender. Bowel sounds present EXT: No clubbing cyanosis or edema NEURO: Alert and oriented to X3, follows commands Vital Signs (last 8hr) Date Time Temp Pulse Resp B/P (MAP) Pulse Ox O2 Delivery O2 Flow Rate FiO2 12/12/24 12:00 97.9 51 17 111/61 94 12/12/24 12:00 93 Nasal Cannula* 4 36 12/12/24 07:57 93 Nasal Cannula* 4 36 12/12/24 07:55 99.1 54 20 124/66 93 12/12/24 06:30 54 24 130/65 89 12/12/24 06:15 54 21 126/64 91 LABS: Hematology Labs: Test 12/12/24 03:33 10/5/25 15:29 Range/Units White Blood Count 23.7 H 4.8-10.8 K/uL Red Blood Count 4.85 4.50-6.20 MIL/uL Hemoglobin 15.0 14.0-18.0 g/dL Hematocrit 43.8 42-54 % Mean Corpuscular Volume 90.3 79-99 fL Mean Corpuscular Hemoglobin 30.9 27.0-33.0 pg Mean Corpuscular Hemoglobin Concent 34.2 32.0-36.0 g/dL Red Cell Distribution Width 12.2 11.0-15.5 % Platelet Count 341 130-400 K/uL Mean Platelet Volume 10.7 H 7.5-10.5 fL Nucleated Red Blood Cells 0.0 0.0-0.19 % Immature Granulocyte % (Auto) 0.8 0-1 % Neutrophils (%) (Auto) 84.1 H 40.0-77.0 % Lymphocytes (%) (Auto) 7.0 L 21.0-51.0 % Monocytes (%) (Auto) 7.8 3.0-13.0 % Eosinophils (%) (Auto) 0.1 0.0-8.0 % Basophils (%) (Auto) 0.2 0.0-5.0 % Neutrophils # (Auto) 16.4 H 1.8-7.7 K/uL Lymphocytes # (Auto) 1.4 1.0-4.8 K/uL Monocytes # (Auto) 1.5 H 0.1-1.0 K/uL Eosinophils # (Auto) 0.01 0.00-0.70 K/uL Basophils # (Auto) 0.04 0.00-0.20 K/uL Absolute Immature Granulocyte (auto 0.16 0-1 K/uL White Cell Morphology Comment See comments Chemistry Labs: Test 12/12/24 11:16 12/12/24 03:33 12/11/24 15:29 Range/Units Whole Blood Glucose 221 H 70-110 MG/DL Sodium Level 138 136-145 mmol/L Potassium Level 3.7 3.5-5.1 mmol/L Chloride Level 99 L 101-111 mmol/L Carbon Dioxide Level 26 21-32 mmol/L Blood Urea Nitrogen 58 H 7-18 mg/dL Creatinine 2.3 H 0.5-1.3 mg/dL Glomerular Filtration Rate Calc 28 >90 mL/min Random Glucose 193 #H 70-105 mg/dL Uric Acid 10.3 H 2.6-7.2 mg/dL Total Calcium 8.7 8.5-10.1 mg/dL Phosphorus Level 3.5 2.5-4.9 mg/dL Magnesium Level 2.60 H 1.80-2.40 mg/dL Total Bilirubin 0.8 0.2-1.0 mg/dL Aspartate Amino Transf (AST/SGOT) 455 H 10-37 U/L Alanine Aminotransferase (ALT/SGPT) 66 # 12-78 U/L Alkaline Phosphatase 127 50-136 U/L Troponin I High Sensitivity [id number] *H 4-75 ng/L Total Protein 7.5 6.0-8.3 g/dL Albumin 3.2 #L 3.5-5.0 g/dL Thyroid Stimulating Hormone (TSH) 1.51 # 0.36-3.74 uIU/mL Hemoglobin A1c 9.3 H 4.0-6.0 % Estimated Average Glucose (eAG) 220 H 70-126 mg/dL Direct Bilirubin 0.1 0.0-0.3 mg/dL C-Reactive Protein, Quantitative 41.00 H 0.5-3.0 mg/L B-Type Natriuretic Peptide 746 H 0-100 pg/mL Procalcitonin 0.11 0.05-0.5 ng/mL Coagulation Labs: Test 12/12/24 10:01 Range/Units Activated Partial Thromboplast Time 75.2 H 26.3-35.5 [facility] RESULTS: [ ] PLAN NEURO: Minimize central acting medications as possible. Fall Precautions. Well lighted room through the day and minimize interruptions through the night to prevent acute delirium. PULMONARY: Supplemental 02 as needed Titrate Fio2 to keep Spo2 > or = 90% DuoNebs and CPT as needed IS hourly while awake for pulmonary hygiene Out of bed to chair as tolerated VAP Bundle CARDIOVASCULAR: Follow hemodynamics. Titrate vasopressor to keep MAP >65 or systolic blood pressure >95mmHg GI & NUTRITION: Continue nutritional support Aspirations precautions Prokinetic agents and laxatives as needed KIDNEYS & ELECTROLYTES: Strict monitoring of intake and output Daily weights Avoid nephrotoxic agents Monitor electrolytes and replace as needed Goal urine output of 30mL/hr or 0.5mL/kg/hr ENDOCRINE: Maintain blood glucose between 100-180 at all times. Insulin sliding scale for blood glucose management INFECTIOUS DISEASE: Trend temperature. Child-culture if febrile. HEMATOLOGY & COAGULATION: Monitor H&H. Keep Hgb > 7 Transfuse 1 unit of PRBC for Hgb < 7 Transfuse 1 pack of platelets of platelets < 20, 000 Watch for any signs and symptoms of bleeding SKIN: Pressure ulcer prevention per facility protocol Rehab: PT/OT Code Status: Full Resuscitation Disposition: [Admit to ICU ] LEESA AGARWAL Dec 12, 2024 14:08
--- NOTE | 2024-12-12 15:30 | PN ---
[facility] PROGRESS NOTE Date Patient Seen: Dec 12, 2024 Time of Visit: 15:11 Supervising Physician: [ ] Primary Care Physician: Cesario Avery. Attending team: [employer] hospitalist team Outpatient Specialists: Inpatient Consults: BIS, critical Care team Cardiology PROBLEM LIST: STEMI Complete heart block- asymptomatic Mild bibasilar airspace disease, possibly representing infection vs atelectasis, per chest x-ray on 12/11/2024 Hypertension Dyslipidemia Diabetes mellitus type with hyperglycemia- HbA1C:9.3 CKD stage IV Diabetic neuropathy Elevated LFTs INTERVAL HISTORY: Patient seen and examined, all labs and imaging have been reviewed, patient complains of chest pain and rates it 06/16. Patient also reports of chest pain aggravating on deep inspiration. Patient denies any chest pain or shortness of breath. He is currently on the heparin drip. At goal. Nursing reports plan was a left heart catheterization but due to his bradycardia was held. Pending evaluation by Dr. Rodriguez. Patient's heart rate has been in the mid 40s to 50s this morning. Nursing reports no acute events since admit. Afebrile Plan: Heparin drip protocol Follow cardiology recs Telemetry NPO Continues on aspirin, statin, Plavix Antibiotics are ceftriaxone and doxycycline, we are following cultures Critical care time 43 minutes, this time excludes any procedures or educational time. REVIEW OF SYSTEMS: 12 point ROS reviewed with patient. Pertinent positives mentioned above. Otherwise negative. PHYSICAL EXAM: GENERAL: Alert, weak, awake oriented x 3 HEENT: EOMI, Sclera non icteric, moist mucosa NECK: Supple, no JVD, trachea midline LUNGS: Clear breath sounds bilaterally. No wheezes HEART: Regular rate and rhythm. Normal S1 and S2, without murmurs ABD: Abdomen soft, nontender. Bowel sounds present EXT: No clubbing cyanosis or edema NEURO: Alert and oriented to X3, follows commands Vital Signs (last 8hr) Date Time Temp Pulse Resp B/P (MAP) Pulse Ox O2 Delivery O2 Flow Rate FiO2 12/12/24 12:00 97.9 51 17 111/61 94 12/12/24 12:00 93 Nasal Cannula* 4 36 12/12/24 07:57 93 Nasal Cannula* 4 36 12/12/24 07:55 99.1 54 20 124/66 93 LABS: Hematology Labs: Test 12/12/24 03:33 12/11/24 15:29 Range/Units White Blood Count 23.7 H 4.8-10.8 K/uL Red Blood Count 4.85 4.50-6.20 MIL/uL Hemoglobin 15.0 14.0-18.0 g/dL Hematocrit 43.8 42-54 % Mean Corpuscular Volume 90.3 79-99 fL Mean Corpuscular Hemoglobin 30.9 27.0-33.0 pg Mean Corpuscular Hemoglobin Concent 34.2 32.0-36.0 g/dL Red Cell Distribution Width 12.2 11.0-15.5 % Platelet Count 341 130-400 K/uL Mean Platelet Volume 10.7 H 7.5-10.5 fL Nucleated Red Blood Cells 0.0 0.0-0.19 % Immature Granulocyte % (Auto) 0.8 0-1 % Neutrophils (%) (Auto) 84.1 H 40.0-77.0 % Lymphocytes (%) (Auto) 7.0 L 21.0-51.0 % Monocytes (%) (Auto) 7.8 3.0-13.0 % Eosinophils (%) (Auto) 0.1 0.0-8.0 % Basophils (%) (Auto) 0.2 0.0-5.0 % Neutrophils # (Auto) 16.4 H 1.8-7.7 K/uL Lymphocytes # (Auto) 1.4 1.0-4.8 K/uL Monocytes # (Auto) 1.5 H 0.1-1.0 K/uL Eosinophils # (Auto) 0.01 0.00-0.70 K/uL Basophils # (Auto) 0.04 0.00-0.20 K/uL Absolute Immature Granulocyte (auto 0.16 0-1 K/uL White Cell Morphology Comment See comments Chemistry Labs: Test 12/12/24 11:16 12/12/24 03:33 12/11/24 15:29 Range/Units Whole Blood Glucose 221 H 70-110 MG/DL Sodium Level 138 136-145 mmol/L Potassium Level 3.7 3.5-5.1 mmol/L Chloride Level 99 L 101-111 mmol/L Carbon Dioxide Level 26 21-32 mmol/L Blood Urea Nitrogen 58 H 7-18 mg/dL Creatinine 2.3 H 0.5-1.3 mg/dL Glomerular Filtration Rate Calc 28 >90 mL/min Random Glucose 193 #H 70-105 mg/dL Uric Acid 10.3 H 2.6-7.2 mg/dL Total Calcium 8.7 8.5-10.1 mg/dL Phosphorus Level 3.5 2.5-4.9 mg/dL Magnesium Level 2.60 H 1.80-2.40 mg/dL Total Bilirubin 0.8 0.2-1.0 mg/dL Aspartate Amino Transf (AST/SGOT) 455 H 10-37 U/L Alanine Aminotransferase (ALT/SGPT) 66 # 12-78 U/L Alkaline Phosphatase 127 50-136 U/L Troponin I High Sensitivity [id number] *H 4-75 ng/L Total Protein 7.5 6.0-8.3 g/dL Albumin 3.2 #L 3.5-5.0 g/dL Thyroid Stimulating Hormone (TSH) 1.51 # 0.36-3.74 uIU/mL Hemoglobin A1c 9.3 H 4.0-6.0 % Estimated Average Glucose (eAG) 220 H 70-126 mg/dL Direct Bilirubin 0.1 0.0-0.3 mg/dL C-Reactive Protein, Quantitative 41.00 H 0.5-3.0 mg/L B-Type Natriuretic Peptide 746 H 0-100 pg/mL Procalcitonin 0.11 0.05-0.5 ng/mL Coagulation Labs: Test 12/12/24 10:01 Range/Units Activated Partial Thromboplast Time 75.2 H 26.3-35.5 [facility] RESULTS: [ ] PLAN NEURO: Minimize central acting medications as possible. Fall Precautions. Well lighted room through the day and minimize interruptions through the night to prevent acute delirium. PULMONARY: Supplemental 02 as needed Titrate Fio2 to keep Spo2 > or = 90% DuoNebs and CPT as needed IS hourly while awake for pulmonary hygiene Out of bed to chair as tolerated VAP Bundle CARDIOVASCULAR: Follow hemodynamics. 2D ECHO report pending left heart catheterization held due to his bradycardia Pending evaluation by Dr. Rodriguez. Titrate vasopressor to keep MAP >65 or systolic blood pressure >95mmHg GI & NUTRITION: Continue nutritional support Aspirations precautions Prokinetic agents and laxatives as needed Will trend LFTs Will order GGT and ultrasound if patient develops abdominal pain or if tomorrows LFTs are deranged KIDNEYS & ELECTROLYTES: Strict monitoring of intake and output Daily weights Avoid nephrotoxic agents Monitor electrolytes and replace as needed Goal urine output of 30mL/hr or 0.5mL/kg/hr ENDOCRINE: Maintain blood glucose between 100-180 at all times. Insulin sliding scale for blood glucose management INFECTIOUS DISEASE: Trend temperature. Child-culture if febrile. HEMATOLOGY & COAGULATION: Monitor H&H. Keep Hgb > 7 Transfuse 1 unit of PRBC for Hgb < 7 Transfuse 1 pack of platelets of platelets < 20, 000 Watch for any signs and symptoms of bleeding SKIN: Pressure ulcer prevention per facility protocol Rehab: PT/OT Code Status: Full Resuscitation Disposition: [Admit to ICU ] ATTESTATION BY PHYSICIAN I have seen and examined the patient. I reviewed the documentation, medical decision making, and treatment plan as noted by the resident provider above. I agree with the findings and plan of care. Laith Degroot MD, LAKSHMI MD Dec 12, 2024 15:30
[2024-12-12 16:06] LABS: INR 1.15 (0.85-1.15)
[2024-12-12 17:29] LABS: RAPID GROUP A STREP negative (NEGATIVE)
[2024-12-12 17:33] LABS: SARS-CoV-2, RNA, NAAT NEGATIVE SARS CoV-2 (NEGATIVE)
[2024-12-12 17:39] LABS: INFLUENZA TYPE A Negative For Type A (NEGATIVE); INFLUENZA TYPE B Negative For Type B (NEGATIVE)
--- NOTE | 2024-12-12 17:52 | CONS ---
[facility] CARDIAC ELECTROPHYSIOLOGY CONSULTATION Date Patient Seen: Dec 12, 2024 Time of Visit: 17:48 ] Reason for Consultation: BRADYCARDIA History of Present Illness: The patient is a 79-year-old male who presented with late presentation inferior wall myocardial infarction. He developed bradycardia secondary to AV block. He is asymptomatic regarding the bradycardia. He did not undergo urgent cardiac catheterization due to the late presentation. He is being treated with heparin and the usual ACS protocol. He is also being treated with antibiotics for respiratory infection. During this visit, the patient complains of throat pain, worse with inspiration, and exacerbated with hiccups. He denies any chest pain. I sat him up and had him lean forward and the pain did not improve. I do note significant persistent ST elevation on the monitor. He is hemodynamically stable with systolic blood pressures in the 107 to 123 range and heart rates in the 50s. Labs are significant for leukocytosis with a WBC this morning of 23.7 and a BUN creatinine of 50 and 2.3. I reviewed the EKGs and telemetry strips. There is 2-1 AV block, AV dissociation due to junctional escape beats, and 2 different P-wave morphology suggesting different foci. Some of these appeared to be nonconducted PACs but the P waves are of very low amplitude and difficult to fully assess. The QRS morphology is normal, suggesting an AV colette origin of the conduction abnormality. Past Medical History: Hypertension, diabetes, chronic kidney disease Family History: Noncontributory Review of Systems: Negative in a 13 point review except for throat pain as mentioned above. Physical Examination: General: The patient is in mild distress complaining of throat pain HEENT: Within normal limits Neck: no JVD Lungs: Bibasilar rales Abdomen: Benign Extremities: No edema Vital Signs (last 8hr) Date Time Temp Pulse Resp B/P (MAP) Pulse Ox O2 Delivery O2 Flow Rate FiO2 12/12/24 16:00 54 18 112/61 96 12/12/24 15:00 53 19 123/62 94 12/12/24 14:00 53 19 117/60 94 12/12/24 13:00 52 18 107/56 95 12/12/24 12:00 97.9 51 17 111/61 94 12/12/24 12:00 93 Nasal Cannula* 4 36 12/12/24 11:00 51 19 119/63 93 12/12/24 10:00 51 20 116/65 92 Laboratory: [ ] Hematology Labs: Test 12/12/24 03:33 12/11/24 15:29 Range/Units White Blood Count 23.7 H 4.8-10.8 K/uL Red Blood Count 4.85 4.50-6.20 MIL/uL Hemoglobin 15.0 14.0-18.0 g/dL Hematocrit 43.8 42-54 % Mean Corpuscular Volume 90.3 79-99 fL Mean Corpuscular Hemoglobin 30.9 27.0-33.0 pg Mean Corpuscular Hemoglobin Concent 34.2 32.0-36.0 g/dL Red Cell Distribution Width 12.2 11.0-15.5 % Platelet Count 341 130-400 K/uL Mean Platelet Volume 10.7 H 7.5-10.5 fL Nucleated Red Blood Cells 0.0 0.0-0.19 % Immature Granulocyte % (Auto) 0.8 0-1 % Neutrophils (%) (Auto) 84.1 H 40.0-77.0 % Lymphocytes (%) (Auto) 7.0 L 21.0-51.0 % Monocytes (%) (Auto) 7.8 3.0-13.0 % Eosinophils (%) (Auto) 0.1 0.0-8.0 % Basophils (%) (Auto) 0.2 0.0-5.0 % Neutrophils # (Auto) 16.4 H 1.8-7.7 K/uL Lymphocytes # (Auto) 1.4 1.0-4.8 K/uL Monocytes # (Auto) 1.5 H 0.1-1.0 K/uL Eosinophils # (Auto) 0.01 0.00-0.70 K/uL Basophils # (Auto) 0.04 0.00-0.20 K/uL Absolute Immature Granulocyte (auto 0.16 0-1 K/uL White Cell Morphology Comment See comments Chemistry Labs: Test 12/12/24 16:38 12/12/24 03:33 12/11/24 15:29 Range/Units Whole Blood Glucose 200 H 70-110 MG/DL Sodium Level 138 136-145 mmol/L Potassium Level 3.7 3.5-5.1 mmol/L Chloride Level 99 L 101-111 mmol/L Carbon Dioxide Level 26 21-32 mmol/L Blood Urea Nitrogen 58 H 7-18 mg/dL Creatinine 2.3 H 0.5-1.3 mg/dL Glomerular Filtration Rate Calc 28 >90 mL/min Random Glucose 193 #H 70-105 mg/dL Uric Acid 10.3 H 2.6-7.2 mg/dL Total Calcium 8.7 8.5-10.1 mg/dL Phosphorus Level 3.5 2.5-4.9 mg/dL Magnesium Level 2.60 H 1.80-2.40 mg/dL Total Bilirubin 0.8 0.2-1.0 mg/dL Aspartate Amino Transf (AST/SGOT) 455 H 10-37 U/L Alanine Aminotransferase (ALT/SGPT) 66 # 12-78 U/L Alkaline Phosphatase 127 50-136 U/L Troponin I High Sensitivity 299602 *H 4-75 ng/L Total Protein 7.5 6.0-8.3 g/dL Albumin 3.2 #L 3.5-5.0 g/dL Thyroid Stimulating Hormone (TSH) 1.51 # 0.36-3.74 uIU/mL Hemoglobin A1c 9.3 H 4.0-6.0 % Estimated Average Glucose (eAG) 220 H 70-126 mg/dL Direct Bilirubin 0.1 0.0-0.3 mg/dL C-Reactive Protein, Quantitative 41.00 H 0.5-3.0 mg/L B-Type Natriuretic Peptide 746 H 0-100 pg/mL Procalcitonin 0.11 0.05-0.5 ng/mL Coagulation Labs: Test 12/12/24 15:50 Range/Units Prothrombin Time 12.0 H 9.6-11.6 SEC Prothromb Time International Ratio 1.15 0.85-1.15 Activated Partial Thromboplast Time 47.8 #H 26.3-35.5 SEC Assessment: 1. AV dissociation as described above, asymptomatic, likely related to infarction or stenting in the AV colette artery territory. 2. Persistent ST elevations, possible pericarditis Plan: 1. Echocardiogram is pending 2. Continue to monitor 3. Permanent pacing is not indicated at this juncture 4. I will discuss with Dr. Pepper the expected course of possible recovery of AV conduction if it is indeed related to infarction. CATALINO GUILLERMO MD Dec 12, 2024 17:52
[2024-12-12 22:47] LABS: INR 1.08 (0.85-1.15)
[2024-12-13] VITALS (41 sets, daily range): BP systolic 107–127; BP diastolic 54–85; PULSE 52–58; RESP 15–28; TEMP 97.4–98.3; O2SAT 94–100
--- NOTE | 2024-12-13 01:12 | HMCSR ---
APPROVED REPORT EXAM: Two-dimensional and M-mode echocardiogram with Doppler and color Doppler. INDICATION ICD: Non ST-elevation MT I21.4 2D Dimensions RVDd3.6 cmLVEF(%)13.3 (>50%)LVED Vol(simp.)105.0 mL IVSd1.1 (0.7-1.1cm)FS(%)6 %LVES Vol(simp.)64.0 mL LVDd5.6 (3.8-5.6cm)LA (2D)5.4 (1.6-4.0cm)LVEF(%, simp.)39 % PWd0.9 (0.7-1.1cm)Ao Root(2D)2.8 (2.0-3.7cm)LA ESV INDEX (BP)30.74 mL/m2 IVSs0.9 cmLVOT diam2.1 (1.8-2.4cm) LVDs5.2 (2.5-4.0cm)IVC diam2.1 cm PWs1.0 cm Deformation Strain Apical 4-14.2 % Apical 2-13.8 % Apical 3-10.4 % Global Strain-12.8 % M-Mode Dimensions EPSS1.4 cm LA (MM)4.1 (1.6-4.0cm) Ao Root(MM)3.5 (2.0-3.7cm) Aortic Valve AoV Vmax1.1 m/Xin Peak GR4.8 mmHgLVOT Vmax0.6 m/s AoV VTI0.2 mAo Mean GR2.6 mmHgLVOT VTI0.12 m REED (VMAX)1.99 cm2AVA (VTI) 2.2 cm2 Mitral Valve MV E Vmax88.0 cm/sDECEL Gkld646 ms P 1/2 T53 ms MVA (PHT)4.1 cm2 TDI E/E' Bequwd84.4E/E' Ighzeis89.3 Medial E' Peak V7.11 cm/sLateral E' Peak V5.08 cm/s Pulmonary Valve PV Vmax0.9 m/sPV VTI0.20 mPV Mean GR2.0 mmHg PV Peak GR3.5 mmHg Tricuspid Valve TR Vmax1.4 m/sRAP (EST) 8 zcQnIALK14.0 mmHg TR Peak GR8.0 mmHg Left Ventricle The left ventricle is mildly dilated. The basal/mid/apical inferior and inferolateral jolley are sever carlos hypokinetic. The basal/mid/apical anterior lateral wall is hypokinetic. The anterior wall is norm al in function. Mild concentric left ventricular hypertrophy. Left ventricle systolic function is mod erate to severely depressed, estimated LVEF 35 to 40%. Indeterminate diastolic function. Right Ventricle The right ventricle is normal size. Right ventricle systolic function is mildly depressed, TAPSE 15 m m. Atria The left atrium size is normal. The right atrium size is normal. Aortic Valve Aortic valve is trileaflet. The leaflets are mildly thickened and calcified. Trace aortic regurgitati on. There is no aortic valvular stenosis. Mitral Valve Mild mitral annular calcification is noted. The leaflets are mildly thickened and calcified. Mild stephanie ral regurgitation. There is no mitral valve stenosis. Tricuspid Valve The tricuspid valve is normal in structure. Trace tricuspid regurgitation. RVSP is 8 mmHg. Pulmonic Valve Pulmonic valve is not well visualized. Great Vessels The aortic root is normal in size. The IVC is normal in size and collapses <50% with inspiration. Pericardium There is no pericardial effusion. Other Information Quality : Adequate Conclusion The cardiac chambers are normal in size. Mild concentric left ventricular hypertrophy. The basal/mid/apical inferior and inferolateral jolley are severely hypokinetic. The basal/mid/apical anterior lateral wall is hypokinetic. The anterior wall is normal in function. Left ventricle systolic function is moderate to severely depressed, estimated LVEF 35 to 40%. Indeterminate diastolic function. Right ventricle systolic function is mildly depressed, TAPSE 15 mm. Trace aortic regurgitation. Mild mitral regurgitation. Trace tricuspid regurgitation. PASP is 16 mmHg. There is no pericardial effusion.
[2024-12-13 05:19] LABS: NUCLEATED RED BLOOD CELLS 0.0 % (0.0-0.19); PLATELET COUNT (AUTO) 282.0 K/uL (130-400); RED BLOOD CELL COUNT(AUTO) 4.5 MIL/uL (4.50-6.20); RED CELL DISTRIBUTION WIDTH 12.5 % (11.0-15.5); WHITE BLOOD COUNT (AUTO) 20.6 K/uL (4.8-10.8)
[2024-12-13 06:00] LABS: ASPARTATE AMINOTRANSFERASE 260.0 U/L (10-37); CREATININE 1.7 mg/dL (0.5-1.3); GLOMERULAR FILTR. RATE CALC 41.0 mL/min (>90); GLUCOSE,RANDOM 164.0 mg/dL (70-105); PHOSPHORUS 3.4 mg/dL (2.5-4.9); SODIUM SERUM 136.0 mmol/L (136-145); TOTAL PROTEIN, SERUM 7.0 g/dL (6.0-8.3); UREA NITROGEN, BLOOD 61.0 mg/dL (7-18)
--- NOTE | 2024-12-13 07:08 | PN ---
[facility] Cardiology Progress Note CARDIOLOGY PROGRESS NOTE DECEMBER 13, 2024 Problems: 1. Acute inferior wall myocardial infarction with late presentation 48 hours after onset, pain-free at the time of my evaluation and initial troponin of [id number] and Q-waves inferiorly 2. AV dissociation on admission with subsequent second-degree AV block two-to-one 3. Diabetes mellitus type 2 4. Acute on chronic kidney disease stage 4 on admission the patient continues on aspirin atorvastatin clopidogrel heparin protocol insulin scale tramadol p.r.n.. We have avoided beta blockers given the heart block. 5. Hypertension 6. Dyslipidemia The patient was seen by Dr. Malone for evaluation of his heart block. He denies any chest pain or shortness of breath. Blood pressure this morning is 120/80 heart rate is in the 50s the patient is afebrile. There was no elevation of the jugular venous pressure lungs are clear. No new murmurs. Telemetry shows sinus rhythm with second-degree AV block two-to-one[place] [id number] hemoglobin 14.1 Platelet count [id number]. Potassium 4.2 BUN 61 creatinine 1.7 Down from 2.3 yesterday and 3.0 on admission. 2D echo shows ejection fraction of 35-40%. He has mild mitral regurgitation trace aortic regurgitation and no pericardial effusion. We will discontinue heparin and place him on subQ Lovenox today. Continue to monitor his rhythm to see if his heart block will resolve as his heart heels. We will continue to avoid beta blockers for the ti me being. LEESA MACIAS MD Dec 13, 2024 07:08
--- NOTE | 2024-12-13 07:49 | PN ---
[facility] PROGRESS NOTE Date Patient Seen: Dec 13, 2024 Time of Visit: 07:49 Supervising Physician: BLAISE BAUER MD Primary Care Physician: Cesario Avery. Attending team: [employer] hospitalist team Outpatient Specialists: Inpatient Consults: [facility], critical Care team Cardiology PROBLEM LIST: Late presentation inferior wall STEMI Persistent ST segment elevations. A-V dissociation with stable ventricular rates in the 50s Chest pain with respiration and cough suspicious for pericarditis Mild bibasilar airspace disease, possibly representing infection vs atelectasis, per chest x-ray on 12/11/2024 Hypertension Dyslipidemia Diabetes mellitus type with hyperglycemia- HbA1C:9.3 CKD stage IV Diabetic neuropathy Elevated LFTs INTERVAL HISTORY: Chart reviewed including all laboratory and imaging results. Patient assessed at bedside. He reports chest pain to right upper and left upper chest with coughing. He was administered Dilaudid 0.2 mg IV x1 and alleviated symptoms. He denies any palpitations or shortness for breath at this time. He is currently saturating 98% on 3 L via nasal cannula. Hemodynamically stable. Heart rate in the 50s. He has not required any pacing or dopamine drip. No major overnight events reported. Persistent ST elevations. Due to chest pain with coughing and inspiration there is a suspicion for pericarditis. Plan: Follow cardiology recs Cardiac monitoring continuously. Heart healthy diet Continues on aspirin, statin, Plavix Antibiotics are ceftriaxone and doxycycline, we are following cultures Multimodal pain management REVIEW OF SYSTEMS: 12 point ROS reviewed with patient. Pertinent positives mentioned above. Otherwise negative. PHYSICAL EXAM: GENERAL: Alert, weak, awake oriented x 3 HEENT: EOMI, Sclera non icteric, moist mucosa NECK: Supple, no JVD, trachea midline LUNGS: Clear breath sounds bilaterally. No wheezes HEART: Regular rate and rhythm. Normal S1 and S2, without murmurs ABD: Abdomen soft, nontender. Bowel sounds present EXT: No clubbing cyanosis or edema NEURO: Alert and oriented to X3, follows commands Vital Signs (last 8hr) Date Time Temp Pulse Resp B/P (MAP) Pulse Ox O2 Delivery O2 Flow Rate FiO2 12/13/24 07:15 97.3 54 28 113/58 99 Room Air 12/13/24 07:00 54 25 120/60 98 Room Air 12/13/24 05:40 55 21 119/85 99 Nasal Cannula 12/13/24 05:10 54 21 123/62 98 Nasal Cannula 12/13/24 04:47 98.1 12/13/24 04:39 55 17 120/64 100 Nasal Cannula 12/13/24 04:10 55 23 107/54 98 Nasal Cannula 12/13/24 04:00 98 Nasal Cannula* 4 36 12/13/24 03:39 55 22 126/66 98 Nasal Cannula 12/13/24 03:10 56 21 116/54 98 Nasal Cannula 4.0 12/13/24 02:39 56 25 111/59 99 Nasal Cannula 4.0 12/13/24 02:10 56 25 117/57 96 Nasal Cannula 4.0 12/13/24 01:39 56 21 122/64 99 Nasal Cannula 4.0 12/13/24 01:09 56 18 107/57 98 Nasal Cannula 4.0 12/13/24 00:40 56 19 112/59 96 Nasal Cannula 4.0 12/13/24 00:24 98.2 12/13/24 00:19 97.9 12/13/24 00:10 57 24 119/55 97 Nasal Cannula 4.0 12/13/24 00:00 98 Nasal Cannula* 4 36 LABS: Hematology Labs: Test 12/13/24 04:49 12/11/24 15:29 Range/Units White Blood Count 20.6 H 4.8-10.8 K/uL Red Blood Count 4.50 4.50-6.20 MIL/uL Hemoglobin 14.1 14.0-18.0 g/dL Hematocrit 41.5 L 42-54 % Mean Corpuscular Volume 92.2 79-99 fL Mean Corpuscular Hemoglobin 31.3 27.0-33.0 pg Mean Corpuscular Hemoglobin Concent 34.0 32.0-36.0 g/dL Red Cell Distribution Width 12.5 11.0-15.5 % Platelet Count 282 130-400 K/uL Mean Platelet Volume 10.6 H 7.5-10.5 fL Nucleated Red Blood Cells 0.0 0.0-0.19 % Immature Granulocyte % (Auto) 0.8 0-1 % Neutrophils (%) (Auto) 84.1 H 40.0-77.0 % Lymphocytes (%) (Auto) 7.0 L 21.0-51.0 % Monocytes (%) (Auto) 7.8 3.0-13.0 % Eosinophils (%) (Auto) 0.1 0.0-8.0 % Basophils (%) (Auto) 0.2 0.0-5.0 % Neutrophils # (Auto) 16.4 H 1.8-7.7 K/uL Lymphocytes # (Auto) 1.4 1.0-4.8 K/uL Monocytes # (Auto) 1.5 H 0.1-1.0 K/uL Eosinophils # (Auto) 0.01 0.00-0.70 K/uL Basophils # (Auto) 0.04 0.00-0.20 K/uL Absolute Immature Granulocyte (auto 0.16 0-1 K/uL White Cell Morphology Comment See comments Chemistry Labs: Test 12/13/24 04:49 12/12/24 20:00 12/12/24 03:33 12/11/24 15:29 Range/Units Sodium Level 136 136-145 mmol/L Potassium Level 4.2 3.5-5.1 mmol/L Chloride Level 99 L 101-111 mmol/L Carbon Dioxide Level 25 21-32 mmol/L Blood Urea Nitrogen 61 H 7-18 mg/dL Creatinine 1.7 H 0.5-1.3 mg/dL Glomerular Filtration Rate Calc 41 >90 mL/min Random Glucose 164 H 70-105 mg/dL Total Calcium 8.6 8.5-10.1 mg/dL Phosphorus Level 3.4 2.5-4.9 mg/dL Magnesium Level 2.60 H 1.80-2.40 mg/dL Total Bilirubin 0.8 0.2-1.0 mg/dL Aspartate Amino Transf (AST/SGOT) 260 H 10-37 U/L Alanine Aminotransferase (ALT/SGPT) 52 12-78 U/L Alkaline Phosphatase 106 50-136 U/L Total Protein 7.0 6.0-8.3 g/dL Albumin 2.6 L 3.5-5.0 g/dL Whole Blood Glucose 198 H 70-110 MG/DL Uric Acid 10.3 H 2.6-7.2 mg/dL Troponin I High Sensitivity [id number] *H 4-75 ng/L Thyroid Stimulating Hormone (TSH) 1.51 # 0.36-3.74 uIU/mL Hemoglobin A1c 9.3 H 4.0-6.0 % Estimated Average Glucose (eAG) 220 H 70-126 mg/dL Direct Bilirubin 0.1 0.0-0.3 mg/dL C-Reactive Protein, Quantitative 41.00 H 0.5-3.0 mg/L B-Type Natriuretic Peptide 746 H 0-100 pg/mL Procalcitonin 0.11 0.05-0.5 ng/mL Coagulation Labs: Test 12/12/24 22:20 Range/Units Prothrombin Time 11.4 9.6-11.6 SEC Prothromb Time International Ratio 1.08 0.85-1.15 Activated Partial Thromboplast Time 50.7 H 26.3-35.5 SEC DIAGNOSTICS / RADIOLOGY RESULTS: [ ] PLAN NEURO: Minimize central acting medications as possible. Fall Precautions. Well lighted room through the day and minimize interruptions through the night to prevent acute delirium. PULMONARY: Supplemental 02 as needed Titrate Fio2 to keep Spo2 > or = 90% DuoNebs and CPT as needed IS hourly while awake for pulmonary hygiene Out of bed to chair as tolerated VAP Bundle CARDIOVASCULAR: Follow hemodynamics. 2D ECHO report pending left heart catheterization held due to his bradycardia Pending evaluation by Dr. Rodriguez. Titrate vasopressor to keep MAP >65 or systolic blood pressure >95mmHg GI & NUTRITION: Continue nutritional support Aspirations precautions Prokinetic agents and laxatives as needed Will trend LFTs Will order GGT and ultrasound if patient develops abdominal pain or if tomorrows LFTs are deranged KIDNEYS & ELECTROLYTES: Strict monitoring of intake and output Daily weights Avoid nephrotoxic agents Monitor electrolytes and replace as needed Goal urine output of 30mL/hr or 0.5mL/kg/hr ENDOCRINE: Maintain blood glucose between 100-180 at all times. Insulin sliding scale for blood glucose management INFECTIOUS DISEASE: Trend temperature. Child-culture if febrile. HEMATOLOGY & COAGULATION: Monitor H&H. Keep Hgb > 7 Transfuse 1 unit of PRBC for Hgb < 7 Transfuse 1 pack of platelets of platelets < 20, 000 Watch for any signs and symptoms of bleeding SKIN: Pressure ulcer prevention per facility protocol Rehab: PT/OT Code Status: Full Resuscitation Disposition: TBD Critical care time This patient required multiple bedside visits to manage the patient, review blood gases, coordinate with respiratory, nurses, talk to chief juvenile probation officer review radiology exams, talk to the family members and discuss advanced directives. I personally spent [45] minutes of critical care time in treatment of this patient. This includes patient management, time at bedside, time reviewing tests, labs, appropriate images and studies, documentation, and patient care coordination. This time excludes separately billable procedures. ATTESTATION BY PHYSICIAN I have evaluated the patient chart, medical records, and spoke with appropriate staff. I reviewed the documentation, medical decision making, and treatment plan as noted by the mid-level provider above. I agree with the findings and plan of care. ASHOK CHAVEZ MD [employer] Dec 13, 2024 07:49
[2024-12-13 09:05] LABS: ABG BASE EXCESS -1.8 mmol/L (-2.0-3.0); ABG HCO3 21.1 mmol/L (21.0-28.0); ABG OXYGEN SATURATION 96.8 % (94.0-98.0); ABG PCO2 31 mmHg (35-48); ABG PH 7.453 (7.350-7.450); CARBON MONOXIDE 1.1 % (0.5-1.5); DEVICE COMMENT LR NELLY NP; PO2, ARTERIAL BG 89.0 mmHg (83.0-108.0); TEMPERATURE, CELSIUS BG 37.0 CELSIUS (35.5-37.0); VENT MODE, BG 4LNC (ROOM AIR)
--- NOTE | 2024-12-13 11:20 | PN ---
NEPHROLOGY PROGRESS NOTE Date/Time Patient Seen: Dec 13, 2024 SUBJECTIVE: This is a 79-year-old male with past medical history of diabetes mellitus type He presented to the hospital secondary to chest pain. The patient has been found to have elevated WBC count and elevated BUN and creatinine. The patient has apparently acute GA and followed by scheduling specialist. No other associated findings. No other aggravating or relieving factors. On arrival to ED the patient had ST-elevation in inferior leads with associated Q-waves. Code STEMI was called. He continues on heparin drip. Left heart catheterization was held due to bradycardia. EP continues to monitor patient. Continues on antibiotics He was noted to have elevated BUN/creatinine We have been consulted for renal failure Renal function is improving Electrolytes are stable Renal ultrasound was noted He was seen in the ICU, in no acute distress Family at the bedside Condition is critical and guarded REVIEW OF SYSTEMS: GENERAL: Negative for any nausea, vomiting, fevers, chills, or weight loss. NEUROLOGIC: Negative for any blurry vision, blind spots, double vision, facial asymmetry, dysphagia, dysarthria, hemiparesis, hemisensory deficits, vertigo, ataxia. HEENT: Negative for any head trauma, neck trauma, neck stiffness, photophobia, phonophobia, sinusitis, rhinitis. CARDIAC: Negative for any chest pain, dyspnea on exertion, paroxysmal nocturnal dyspnea, peripheral edema. PULMONARY: Negative for any shortness of breath, wheezing, COPD, or TB exposure. GASTROINTESTINAL: Negative for any abdominal pain, nausea, vomiting, bright red blood per rectum, melena. GENITOURINARY: Negative for any dysuria, hematuria, incontinence. INTEGUMENTARY: Negative for any rashes, cuts, insect bites. RHEUMATOLOGIC: Negative for any joint pains, photosensitive rashes, history of vasculitis or kidney problems. HEMATOLOGIC: Negative for any abnormal bruising, frequent infections or bleeding. Vital Signs (last 8hr) Date Time Temp Pulse Resp B/P (MAP) Pulse Ox O2 Delivery O2 Flow Rate FiO2 12/13/24 08:00 98 Nasal Cannula* 4 36 12/13/24 07:15 97.3 54 28 113/58 99 Room Air 12/13/24 07:00 54 25 120/60 98 Room Air 12/13/24 05:40 55 21 119/85 99 Nasal Cannula 12/13/24 05:10 54 21 123/62 98 Nasal Cannula 12/13/24 04:47 98.1 12/13/24 04:39 55 17 120/64 100 Nasal Cannula 12/13/24 04:10 55 23 107/54 98 Nasal Cannula 12/13/24 04:00 98 Nasal Cannula* 4 36 12/13/24 03:39 55 22 126/66 98 Nasal Cannula PHYSICAL EXAM: GENERAL: Alert and oriented x 3. No acute distress. Well-nourished. EYES: EOMI. Anicteric. HENT: Moist mucous membranes. No scleral icterus. No cervical lymphadenopathy. LUNGS: Clear to auscultation bilaterally. No accessory muscle use. CARDIOVASCULAR: Regular rate and rhythm. No murmur. No JVD. ABDOMEN: Soft, non-tender and non-distended. No palpable masses. EXTREMITIES: No edema. Non-tender. SKIN: No rashes or lesions. Warm. NEUROLOGIC: No focal neurological deficits. CN II-XII grossly intact, but not individually tested. PSYCHIATRIC: Cooperative. Appropriate mood and affect. Current Medications Medications (Trade) Dose Ordered Sig/Kermit Route PRN Reason Start Time Stop Time Status Last Admin Dose Admin Acetaminophen (TYLenol 500MG TAB) 500 mg Q6H PRN PO MILD PAIN (1-3) 12/11/24 16:30 01/10/25 16:29 Aspirin (Aspirin 81mg Chew Tab) 81 mg DAILY PO 12/12/24 09:00 01/11/25 08:59 12/12/24 08:06 81 MG Atorvastatin Calcium (LIPItor 20MG) 20 mg HS PO 12/11/24 21:00 01/10/25 20:59 12/11/24 20:32 20 MG Ceftriaxone Sodium (Rocephin 2gm Inj) 2 gm Q24H IVPB 12/12/24 04:30 12/22/24 04:29 12/12/24 05:02 2 GM Clopidogrel Bisulfate (plaVIX 75MG) 75 mg DAILY PO 12/12/24 09:00 01/11/25 08:59 12/12/24 08:06 75 MG Doxycycline Hyclate 250 ml @ 125 mls/hr Q12H IV 12/12/24 04:30 12/22/24 04:29 12/12/24 05:02 125 MLS/HR Heparin Sodium (Porcine) (HEParin 5,000 UNIT VIAL) *calculation based on ACTUAL B... AD PRN IV HEPARIN PROTOCOL 12/11/24 16:30 01/10/25 16:29 Heparin Sodium/ Dextrose 250 ml @ 0 mls/hr Q6H IV 12/11/24 16:30 01/10/25 16:29 12/12/24 11:27 0 MLS/HR Insulin Human Regular (humuLIN R 100 UNIT/ML 3ML) INSULIN SLIDING SCAL... ACHS SQ 12/11/24 16:30 01/10/25 16:29 12/12/24 11:28 3 UNIT Metoprolol Tartrate (loprESSOR) 25 mg BID PO 12/11/24 21:00 12/11/24 17:12 DC Ondansetron HCl (zoFRAN 4MG INJ) 4 mg Q6H PRN IVP NAUSEA/VOMITING 12/12/24 02:30 01/11/25 02:29 12/12/24 02:13 4 MG Sodium Chloride 500 ml @ 0 mls/hr Q0M IV 12/11/24 17:00 01/10/25 16:59 Tramadol/ Acetaminophen (UltraCET) 1 tab Q6H PRN PO PAIN LEVEL 7 TO 10 12/12/24 08:00 12/17/24 07:59 12/12/24 08:12 1 TAB Vitamin B Complex/ Vit C/Folic Acid (Nephrovite Tablet) 1 cap DAILY PO 12/12/24 09:00 01/11/25 08:59 12/12/24 08:06 1 CAP LABORATORY: [ ] Hematology Labs: Test 12/13/24 04:49 12/11/24 15:29 Range/Units White Blood Count 20.6 H 4.8-10.8 K/uL Red Blood Count 4.50 4.50-6.20 MIL/uL Hemoglobin 14.1 14.0-18.0 g/dL Hematocrit 41.5 L 42-54 % Mean Corpuscular Volume 92.2 79-99 fL Mean Corpuscular Hemoglobin 31.3 27.0-33.0 pg Mean Corpuscular Hemoglobin Concent 34.0 32.0-36.0 g/dL Red Cell Distribution Width 12.5 11.0-15.5 % Platelet Count 282 130-400 K/uL Mean Platelet Volume 10.6 H 7.5-10.5 fL Nucleated Red Blood Cells 0.0 0.0-0.19 % Immature Granulocyte % (Auto) 0.8 0-1 % Neutrophils (%) (Auto) 84.1 H 40.0-77.0 % Lymphocytes (%) (Auto) 7.0 L 21.0-51.0 % Monocytes (%) (Auto) 7.8 3.0-13.0 % Eosinophils (%) (Auto) 0.1 0.0-8.0 % Basophils (%) (Auto) 0.2 0.0-5.0 % Neutrophils # (Auto) 16.4 H 1.8-7.7 K/uL Lymphocytes # (Auto) 1.4 1.0-4.8 K/uL Monocytes # (Auto) 1.5 H 0.1-1.0 K/uL Eosinophils # (Auto) 0.01 0.00-0.70 K/uL Basophils # (Auto) 0.04 0.00-0.20 K/uL Absolute Immature Granulocyte (auto 0.16 0-1 K/uL White Cell Morphology Comment See comments Chemistry Labs: Test 12/13/24 04:49 12/12/24 20:00 12/12/24 03:33 12/11/24 15:29 Range/Units Sodium Level 136 136-145 mmol/L Potassium Level 4.2 3.5-5.1 mmol/L Chloride Level 99 L 101-111 mmol/L Carbon Dioxide Level 25 21-32 mmol/L Blood Urea Nitrogen 61 H 7-18 mg/dL Creatinine 1.7 H 0.5-1.3 mg/dL Glomerular Filtration Rate Calc 41 >90 mL/min Random Glucose 164 H 70-105 mg/dL Total Calcium 8.6 8.5-10.1 mg/dL Phosphorus Level 3.4 2.5-4.9 mg/dL Magnesium Level 2.60 H 1.80-2.40 mg/dL Total Bilirubin 0.8 0.2-1.0 mg/dL Aspartate Amino Transf (AST/SGOT) 260 H 10-37 U/L Alanine Aminotransferase (ALT/SGPT) 52 12-78 U/L Alkaline Phosphatase 106 50-136 U/L Total Protein 7.0 6.0-8.3 g/dL Albumin 2.6 L 3.5-5.0 g/dL Whole Blood Glucose 198 H 70-110 MG/DL Uric Acid 10.3 H 2.6-7.2 mg/dL Troponin I High Sensitivity [id number] *H 4-75 ng/L Thyroid Stimulating Hormone (TSH) 1.51 # 0.36-3.74 uIU/mL Hemoglobin A1c 9.3 H 4.0-6.0 % Estimated Average Glucose (eAG) 220 H 70-126 mg/dL Direct Bilirubin 0.1 0.0-0.3 mg/dL C-Reactive Protein, Quantitative 41.00 H 0.5-3.0 mg/L B-Type Natriuretic Peptide 746 H 0-100 pg/mL Procalcitonin 0.11 0.05-0.5 ng/mL Coagulation Labs: Test 12/12/24 22:20 Range/Units Prothrombin Time 11.4 9.6-11.6 SEC Prothromb Time International Ratio 1.08 0.85-1.15 Activated Partial Thromboplast Time 50.7 H 26.3-35.5 [facility] / RADIOLOGY: [place] [address] IMAGING REPORT Signed PATIENT: OLEG FERRARO MR#: [id number] : 1945 SEX: M AGE: 79 LOCATION: [facility] ORDER [id number] STATUS: ADM IN REPORT#: [id number] SERVICE 0800 REASON: STEMI ORDERING PHYSICIAN: JOSE MANUEL DICKSON PROCEDURE: ECHO CMP - ECHO 2-D COMPLETE APPROVED REPORT EXAM: Two-dimensional and M-mode echocardiogram with Doppler and color Doppler. INDICATION ICD: Non ST-elevation GA I21.4 2D Dimensions RVDd 3.6 cm LVEF(%) 13.3 (>50%) LVED Vol(simp.) 105.0 mL IVSd 1.1 (0.7-1.1cm) FS(%) 6 % LVES Vol(simp.) 64.0 mL LVDd 5.6 (3.8-5.6cm) LA (2D) 5.4 (1.6-4.0cm) LVEF(%, simp.) 39 % PWd 0.9 (0.7-1.1cm) Ao Root(2D) 2.8 (2.0-3.7cm) LA ESV INDEX (BP) 30.74 mL/m2 IVSs 0.9 cm LVOT diam 2.1 (1.8-2.4cm) LVDs 5.2 (2.5-4.0cm) IVC diam 2.1 cm PWs 1.0 cm Deformation Strain Apical 4 -14.2 % Apical 2 -13.8 % Apical 3 -10.4 % Global Strain -12.8 % M-Mode Dimensions EPSS 1.4 cm LA (MM) 4.1 (1.6-4.0cm) Ao Root(MM) 3.5 (2.0-3.7cm) Aortic Valve AoV Vmax 1.1 m/s Ao Peak GR 4.8 mmHg LVOT Vmax 0.6 m/s AoV VTI 0.2 m Ao Mean GR 2.6 mmHg LVOT VTI 0.12 m REED (VMAX) 1.99 cm2 REED (VTI) 2.2 cm2 Mitral Valve MV E Vmax 88.0 cm/s DECEL Time 187 ms P 1/2 T 53 ms MVA (PHT) 4.1 cm2 TDI E/E' Medial 12.4 E/E' Lateral 17.3 Medial E' Peak V 7.11 cm/s Lateral E' Peak V 5.08 cm/s Pulmonary Valve PV Vmax 0.9 m/s PV VTI 0.20 m PV Mean GR 2.0 mmHg PV Peak GR 3.5 mmHg Tricuspid Valve TR Vmax 1.4 m/s RAP (EST) 8 mmHg RVSP 16.0 mmHg TR Peak GR 8.0 mmHg Left Ventricle The left ventricle is mildly dilated. The basal/mid/apical inferior and inferolateral jolley are severely hypokinetic. The basal/mid/apical anterior lateral wall is hypokinetic. The anterior wall is normal in function. Mild shine ntric left ventricular hypertrophy. Left ventricle systolic function is moderate to severely depressed, estimated LVEF 35 to 40%. Indeterminate diastolic function. Right Ventricle The right ventricle is normal size. Right ventricle systolic function is mildly depressed, TAPSE 15 mm. Atria The left atrium size is normal. The right atrium size is normal. Aortic Valve Aortic valve is trileaflet. The leaflets are mildly thickened and calcified. Trace aortic regurgitation. There is no aortic valvular stenosis. Mitral Valve Mild mitral annular calcification is noted. The leaflets are mildly thickened and calcified. Mild mitral regurgitation. There is no mitral valve stenosis. Tricuspid Valve The tricuspid valve is normal in structure. Trace tricuspid regurgitation. RVSP is 8 mmHg. Pulmonic Valve Pulmonic valve is not well visualized. Great Vessels The aortic root is normal in size. The IVC is normal in size and collapses <50% with inspiration. Pericardium There is no pericardial effusion. Other Information Quality : Adequate Conclusion The cardiac chambers are normal in size. Mild concentric left ventricular hypertrophy. The basal/mid/apical inferior and inferolateral jolley are severely hypokinetic. The basal/mid/apical anterior lateral wall is hypokinetic. The anterior wall is normal in function. Left ventricle systolic function is moderate to severely depressed, estimated LV EF 35 to 40%. Indeterminate diastolic function. Right ventricle systolic function is mildly depressed, TAPSE 15 mm. Trace aortic regurgitation. Mild mitral regurgitation. Trace tricuspid regurgitation. PASP is 16 mmHg. There is no pericardial effusion. DICTATED BY: LEESA TAVARES MD DATE: 12/12/24839 ELECTRONICALLY SIGNED BY: LEESA TAVARES MD DATE: 12/13/24111 PATIENT: OLEG FERRARO MR#: [id number] : 1945 SEX: M AGE: 79 LOCATION: [facility] ORDER 45 STATUS: ADM IN REPORT#: [id number] SERVICE 43 REASON: renal failure ORDERING PHYSICIAN: NIMO BERNARD MD PROCEDURE: RENAL - US RENAL SONOGRAM EXAMINATION: ULTRASOUND OF THE RETROPERITONEUM. CLINICAL HISTORY: Renal failure. COMPARISON: None. TECHNIQUE: Real-time grayscale ultrasound images of the kidneys. FINDINGS: The kidneys are normal in caliber, the right kidney measures 8.9 x 4.9 x 4.6 cm and the left kidney measures 11.4 x 6.9 x 4.8 cm in its craniocaudal, AP, and transverse dimensions respectively. There is normal renal cortical thickness, and cortical echogenicity. There is no renal calculus or hydronephrosis. There are simple cortical cysts that measure 1.9 x 2.0 x 1.7 cm in the upper pole, 4.0 x 2.8 x 2.7 cm in the mid pole, 9.5 x 7.5 x 7.3 cm in the lower pole of the right kidney. There are simple cortical cysts that measure 5.0 x 3.4 x 4.5 cm and 5.9 x 3.6 x 3.9 cm in the mid to lower pole of the left kidney. There is a parapelvic cyst that measures 1.1 x 1.0 cm in the mid pole of the left kidney. The urinary bladder is normal in caliber and wall thickness (0.25 cm). There are no calculi in the urinary bladder. IMPRESSION: Bilateral simple renal cortical cysts. Left renal parapelvic cyst. /[place] DICTATED BY: SHA LATIF Jr., MD DATE: 12/12/2432 ELECTRONICALLY SIGNED BY: SHA LATIF Jr., MD DATE: 12/12/2432 PATIENT: OLEG FERRARO MR#: [id number] : 1945 SEX: M AGE: 79 LOCATION: [facility] ORDER 25 STATUS: ADM IN REPORT#: [id number] SERVICE 24 REASON: ORDERING PHYSICIAN: JULY GANN MD PROCEDURE: CXR1VW - CHEST 1VW EXAM: CR Chest, 1 View. CLINICAL HISTORY: cp COMPARISON: Radiograph dated May 10, 2024 FINDINGS: LUNGS: Mild bibasilar airspace disease may reflect an infectious process versus atelectasis. Continued follow-up is recommended. PLEURAL SPACES: No pleural effusion or pneumothorax. MEDIASTINUM: Cardiac size and mediastinal contours within normal limits. BONES: No acute osseous abnormality. IMPRESSION: 1. Mild bibasilar airspace disease, possibly representing infection or atelectasis. /[place] DICTATED BY: SHA LATIF Jr., MD DATE: 12/11/241733 ELECTRONICALLY SIGNED BY: SHA LATIF Jr., MD DATE: 12/11/241733 ASSESSMENT: Inferior STEMI POA Leukocytosis differential in setting of STEMI versus infection Hyperglycemia secondary to uncontrolled diabetes mellitus type 2 Acute kidney injury Diabetic neuropathy Hypoalbuminemia Mild LFT elevation PLAN: Labs, diagnostic, radiologic exams reviewed and interpreted by myself and supervising physician. We have reviewed external records in detail Pending further EP recommendations Require close monitoring of renal function and electrolytes Order CBC, CMP, u and electrolytes in am Continue with antibiotics BiPAP as necessary, for respiratory distress IV pressors as needed Monitor blood pressure adjust medication doses as needed Avoid hypotensive episodes May use Dilaudid 0.5 mg IV every 6 hours as needed for severe pain Monitor blood sugars Strict intake, output, and daily weight should be monitored Please renally adjust medications Avoid nephrotoxic and nonsteroidal drugs Avoid contrast if possible Will continue to monitor renal function, anemia, electrolytes Treatment plan discussed with patient Questions were answered We have discussed with the other team physicians in detail about the care plan We will continue to monitor the patient closely Total critical care time spent with patient, nursing staff, critical care team over 35 minutes ATTESTATION BY PHYSICIAN I have seen and examined the patient. I reviewed the documentation, medical decision making, and treatment plan as noted by the mid-level provider above. I agree with the findings and plan of care. NIMO BERNARD MD, [facility] Dec 13, 2024 11:20
[2024-12-13] MEDS: ENOXAPARIN SODIUM 30 MG/0.3 ML SQ SCH (11:42)
--- NOTE | 2024-12-13 12:36 | PN ---
This is a 79-year-old male with a history of hypertension, diabetes mellitus and chronic kidney disease. He was admitted 12/11/2024 secondary to late presentation inferior wall STEMI with a troponin of greater than 125,000. His presenting EKG showed inferior wall STEMI with Q waves in inferior leads as well as A-V dissociation with a ventricular rate of 51 bpm. He has persistent A-V dissociation with a stable ventricular rate in the 50s. He also has persistent ST segment elevation seen on telemetry. He underwent echocardiogram 12/12/2024 which shows an ejection fraction of 35 to 40% with hypokinesia involving the basal/mid/apical inferior, inferior lateral and anterior lateral jolley, mild LVH, normal right and left atria, mild mitral valve regurgitation and trace aortic intra cuspid valve regurgitation without pericardial effusion. White blood count 20.6 down from 23.7 yesterday (19.5 on admission), hemoglobin 14.1, hematocrit 45.1, platelets 282, creatinine 1.7 (3.0 on admission), potassium 4.2, magnesium 2.60, AST 260, ALT 52, alkaline phosphatase 106. Blood cultures x 2 negative after 24 hours. He reports substernal chest discomfort with coughing, deep breaths and with hiccups. He states that the discomfort is slightly improved with sitting up, however he does report lightheadedness upon sitting up. On exam, he is mildly distressed while coughing due to chest discomfort, lungs are clear to auscultation bilaterally, no lower extremity edema is noted. Assessment: 1. A-V dissociation with stable ventricular rates in the 50s. 2. Late presentation inferior wall STEMI. 3. Persistent ST segment elevations. 4. Chest pain with respiration and cough suspicious for pericarditis. Plan: Discussed with Dr. Malone. 1. He has A-V dissociation with ventricular rates in the 50s. Suspect that this is related to infarction or stunting in the AV colette artery territory. He reports lightheadedness upon sitting which may be related to the AV dissociation. We will continue to assess symptoms/monitor telemetry. 2. If he does require permanent pacing, this will be performed 1 day prior to his anticipated date of discharge. Vitals/Labs Vital Signs Date Time Temp Pulse Resp B/P (MAP) Pulse Ox O2 Delivery O2 Flow Rate FiO2 12/13/24 12:00 100 Nasal Cannula* 4 36 12/13/24 12:00 98.1 56 20 121/59 Laboratory Tests 12/13/24 04:49 LILLY KAM Dec 13, 2024 12:36
--- NOTE | 2024-12-13 14:42 | NUR ---
PATIENT REFUSED WAFFLE MATTRESS EDUCATED ON RATIONAL FOR USE UNDERSTANDING CONFIRMED WITH TEACH BACK.
--- NOTE | 2024-12-13 14:56 | PN ---
[facility] PROGRESS NOTE Date of Service: Dec 13, 2024 Time of Service: 14:53 SUBJECTIVE: [Mr. Shailesh Yang is a 79-year-old male with a history of type 2 diabetes mellitus, hypertension, dyslipidemia, and chronic kidney disease (CKD) stage 4, who presented with chest pain. The chest pain began two days prior to admission, described as pressure-like, localized to the right sternal area, non-radiating, and resolved upon arrival to the hospital. He denies associated symptoms such as vomiting, fever, chills, cough, shortness of breath, abdominal pain, or dysuria. He did report episodes of nausea without vomiting. No recent falls or syncopal episodes. He takes insulin and metformin at home, with no prior renal issues or changes in urination. He requests tramadol for pain, which he uses as needed for chronic pain. 12/13/24 was evaluated today in 215, he continues to be symptomatic. Patient feels dizzy on movement. We will continue to follow recommendations from EP physician, Dr. Malone. We will continue to monitor closely.] REVIEW OF SYSTEMS CONSTITUTIONAL: Denies fevers, chills, or night sweats. No unintentional weight loss reported. NEUROLOGICAL: Denies headache, amaurosis fugax, motor weakness, sensory deficit, vertigo/spinning sensation, gait abnormalities, or tremors. ENT: No hearing loss, otalgia, otorrhea, rhinitis, rhinorrhea, hoarseness, or sore throat. CARDIOVASCULAR: Positive for chest pain. Denied any cough, shortness of breath, orthopnea, PND PULMONARY: Denies any shortness of breath, cough, phlegm/sputum, hemoptysis, pleuritic chest pain. GASTROINTESTINAL: Denies any type of dysphagia to either liquids or solids. Denies nausea, vomiting, pyrosis, early satiety, abdominal pain, diarrhea, constipation, or changes in stool consistency or caliber. Denies coffee-ground emesis, hematemesis, hematochezia, or melanotic stools. GENITOURINARY: Denies frequency, urgency, nocturia, hematuria or incontinence (Storage/Irritative symptoms.) Low urinary stream, straining to void, urinary intermittency or hesitancy, splitting of the voiding stream, terminal dribbling. ENDOCRINOLOGIC: Denies polyuria, polydipsia, polyphagia or heat/cold intolerances. HEMATOLOGIC: Denies thrombophilia/previous clots, or coagulopathy/bleeding disorders. ONCOLOGIC: Denies personal history of malignancy. DERMATOLOGIC: Denies rashes or pruritus. PSYCHIATRIC: Denies any suicidal or homicidal ideation. Denies hallucinations. PHYSICAL EXAM GENERAL APPEARANCE: The patient is awake, alert, and oriented, in no acute cardiopulmonary distress. NEUROLOGICAL: Cranial nerves II-XII grossly intact. Motor is 5/5 in bilateral upper and lower extremities proximal to distal. No sensory deficits. HEENT: Face is symmetric. Pupils are equal and reactive. Extraocular movements are intact. NECK: Supple. No JVD. No thyromegaly. No submental, submandibular, pre- /postauricular, occipital or supraclavicular lymphadenopathy. CHEST: Normal chest expansion. No Telemetry. LUNGS: Absence of any rales, rhonchi or any wheezing. CARDIOVASCULAR: Regular. S1 and S2 normal. No appreciable rubs, murmurs or gallops. ABDOMEN: Soft, nontender, and nondistended. There is no rebound, voluntary guarding, or rigidity. : Deferred. No Love. EXTREMITIES: Non-edematous and not cyanotic. No clubbing. Good capillary refill. SKIN: No skin breakdown. Vital Signs (last 8hr) Date Time Temp Pulse Resp B/P (MAP) Pulse Ox O2 Delivery O2 Flow Rate FiO2 12/13/24 13:13 53 18 12/13/24 12:00 100 Nasal Cannula* 4 36 12/13/24 12:00 98.1 56 20 121/59 99 Room Air 12/13/24 11:00 52 15 113/54 99 Room Air 12/13/24 10:00 53 16 116/58 98 Room Air 12/13/24 09:00 53 20 112/61 99 Room Air 12/13/24 08:00 54 20 127/60 100 Room Air 12/13/24 08:00 98 Nasal Cannula* 4 36 12/13/24 07:15 97.3 54 28 113/58 99 Room Air 12/13/24 07:00 54 25 120/60 98 Room Air LABS: Laboratory: Test 12/13/24 11:34 12/13/24 09:04 12/13/24 04:49 12/12/24 22:20 Range/Units Whole Blood Glucose 210 H 70-110 MG/DL Blood Gas Specimen Type Arterial Arterial Blood pH 7.453 H 7.350-7.450 Arterial Blood Partial Pressure CO2 31 L 35-48 mmHg Arterial Blood Partial Pressure O2 89.0 83.0-108.0 mmHg Arterial Blood HCO3 21.1 21.0-28.0 mmol/L Arterial Blood Oxygen Saturation 96.8 94.0-98.0 % Arterial Blood Base Excess -1.8 -2.0-3.0 mmol/L Hemoglobin (Blood Gas) 14.5 13.5-17.5 g/dL Sodium (Blood Gas) 134 L 136-145 MMOL/L Bedside Potassium (Blood Gas) 3.8 3.4-4.5 MMOL/L Bedside Chloride (Blood Gas) 101 98-107 MMOL/L Bedside Glucose (Blood Gas) 194 H 65-95 MG/DL Bedside Ionized Calcium (Blood Gas) 1.11 L 1.15-1.33 MMOL/L Bedside Lactic Acid (Blood Gas) 1.99 H 0.36-0.75 MMOL/L Blood Gas Temperature 37.0 35.5-37.0 CELSIUS Blood Gas Flow-by 4.00 0.00-15.00 L/min Blood Gas Vent Mode 4LNC ROOM AIR FiO2 36.0 % Blood Gas Specimen Comment LR [facility] [employer] White Blood Count 20.6 H 4.8-10.8 K/uL Red Blood Count 4.50 4.50-6.20 MIL/uL Hemoglobin 14.1 14.0-18.0 g/dL Hematocrit 41.5 L 42-54 % Mean Corpuscular Volume 92.2 79-99 fL Mean Corpuscular Hemoglobin 31.3 27.0-33.0 pg Mean Corpuscular Hemoglobin Concent 34.0 32.0-36.0 g/dL Red Cell Distribution Width 12.5 11.0-15.5 % Platelet Count 282 130-400 K/uL Mean Platelet Volume 10.6 H 7.5-10.5 fL Nucleated Red Blood Cells 0.0 0.0-0.19 % Sodium Level 136 136-145 mmol/L Potassium Level 4.2 3.5-5.1 mmol/L Chloride Level 99 L 101-111 mmol/L Carbon Dioxide Level 25 21-32 mmol/L Blood Urea Nitrogen 61 H 7-18 mg/dL Creatinine 1.7 H 0.5-1.3 mg/dL Glomerular Filtration Rate Calc 41 >90 mL/min Random Glucose 164 H 70-105 mg/dL Total Calcium 8.6 8.5-10.1 mg/dL Phosphorus Level 3.4 2.5-4.9 mg/dL Magnesium Level 2.60 H 1.80-2.40 mg/dL Total Bilirubin 0.8 0.2-1.0 mg/dL Aspartate Amino Transf (AST/SGOT) 260 H 10-37 U/L Alanine Aminotransferase (ALT/SGPT) 52 12-78 U/L Alkaline Phosphatase 106 50-136 U/L Total Protein 7.0 6.0-8.3 g/dL Albumin 2.6 L 3.5-5.0 g/dL Prothrombin Time 11.4 9.6-11.6 SEC Prothromb Time International Ratio 1.08 0.85-1.15 Activated Partial Thromboplast Time 50.7 H 26.3-35.5 SEC Test 12/12/24 17:14 12/12/24 03:33 12/11/24 20:35 12/11/24 15:29 Range/Units Influenza Type A Antigen Negative For Type A NEGATIVE Influenza Type B Antigen Negative For Type B NEGATIVE SARS-CoV-2, RNA, NAAT NEGATIVE SARS CoV-2 NEGATIVE Group A Streptococcus Rapid negative NEGATIVE Uric Acid 10.3 H 2.6-7.2 mg/dL Troponin I High Sensitivity [id number] *H 4-75 ng/L Thyroid Stimulating Hormone (TSH) 1.51 # 0.36-3.74 uIU/mL Urine Color YELLOW YELLOW Urine Appearance CLEAR CLEAR Urine pH 5.5 5.0-8.0 Urine Specific [place] 1.024 1.001-1.031 Urine Protein 30 H NEGATIVE mg/dL Urine Glucose (UA) >=1000 H NEGATIVE mg/dL Urine Ketones NEGATIVE NEGATIVE mg/dL Urine Occult Blood SMALL H NEGATIVE Urine Nitrate NEGATIVE NEGATIVE Urine Bilirubin NEGATIVE NEGATIVE mg/dL Urine Urobilinogen 0.2 0.2-1.0 mg/dL Urine Leukocyte Esterase NEGATIVE NEGATIVE Melia/uL Urine RBC 0-1 0-1 /HPF Urine WBC 2-5 H 0-1 /HPF Urine Bacteria RARE None Seen /HPF Urine Hyaline Casts 6-10 H 0-1 /LPF /LPF Urine Other Casts 7 None Seen /LPF Urine Osmolality 616 50-1200 mOsm/kg Urine Random Creatinine 227.70 H 30-135 mg/dL Urine Random Sodium < 13 L 40-220 mmol/l Urine Random Potassium 78 25-125 mmol/L Urine Random Chloride 32 L 110-250 mmol/L Immature Granulocyte % (Auto) 0.8 0-1 % Neutrophils (%) (Auto) 84.1 H 40.0-77.0 % Lymphocytes (%) (Auto) 7.0 L 21.0-51.0 % Monocytes (%) (Auto) 7.8 3.0-13.0 % Eosinophils (%) (Auto) 0.1 0.0-8.0 % Basophils (%) (Auto) 0.2 0.0-5.0 % Neutrophils # (Auto) 16.4 H 1.8-7.7 K/uL Lymphocytes # (Auto) 1.4 1.0-4.8 K/uL Monocytes # (Auto) 1.5 H 0.1-1.0 K/uL Eosinophils # (Auto) 0.01 0.00-0.70 K/uL Basophils # (Auto) 0.04 0.00-0.20 K/uL Absolute Immature Granulocyte (auto 0.16 0-1 K/uL White Cell Morphology Comment See comments Hemoglobin A1c 9.3 H 4.0-6.0 % Estimated Average Glucose (eAG) 220 H 70-126 mg/dL Direct Bilirubin 0.1 0.0-0.3 mg/dL C-Reactive Protein, Quantitative 41.00 H 0.5-3.0 mg/L B-Type Natriuretic Peptide 746 H 0-100 pg/mL Procalcitonin 0.11 0.05-0.5 ng/mL Current Medications Medications (Trade) Dose Ordered Sig/Kermit Route PRN Reason Start Time Stop Time Status Last Admin Dose Admin Acetaminophen (TYLenol 500MG TAB) 500 mg Q6H PRN PO MILD PAIN (1-3) 12/11/24 16:30 01/10/25 16:29 Albuterol (DUOneb) 1 UDVIAL Q4H4 IH 12/13/24 16:00 01/12/25 15:59 Aspirin (Aspirin 81mg Chew Tab) 81 mg DAILY PO 12/12/24 09:00 01/11/25 08:59 12/13/24 07:30 81 MG Atorvastatin Calcium (LIPItor 20MG) 20 mg HS PO 12/11/24 21:00 01/10/25 20:59 12/12/24 20:05 20 MG Ceftriaxone Sodium (Rocephin 2gm Inj) 2 gm Q24H IVPB 12/12/24 04:30 12/22/24 04:29 12/13/24 04:42 2 GM Clopidogrel Bisulfate (plaVIX 75MG) 75 mg DAILY PO 12/12/24 09:00 01/11/25 08:59 12/13/24 07:31 75 MG Doxycycline Hyclate 250 ml @ 125 mls/hr Q12H IV 12/12/24 04:30 12/22/24 04:29 12/13/24 04:38 125 MLS/HR Enoxaparin Sodium (Lovenox) 30 mg DAILY SQ 12/13/24 09:00 01/12/25 08:59 12/13/24 11:42 30 MG Heparin Sodium (Porcine) (HEParin 5,000 UNIT VIAL) *calculation based on ACTUAL B... AD PRN IV HEPARIN PROTOCOL 12/11/24 16:30 12/13/24 07:10 DC Heparin Sodium/ Dextrose 250 ml @ 0 mls/hr Q6H IV 12/11/24 16:30 12/13/24 07:10 DC 12/12/24 11:27 0 MLS/HR Hydromorphone HCl (DiLAUDid 0.5MG INJ) 0.2 mg Q4H PRN IVP SEVERE PAIN (7-10) 12/13/24 09:30 12/18/24 09:29 Insulin Human Regular (humuLIN R 100 UNIT/ML 3ML) INSULIN SLIDING SCAL... ACHS SQ 12/11/24 16:30 01/10/25 16:29 12/13/24 11:45 3 UNIT Metoprolol Tartrate (loprESSOR) 25 mg BID PO 12/11/24 21:00 12/11/24 17:12 DC Ondansetron HCl (zoFRAN 4MG INJ) 4 mg Q6H PRN IVP NAUSEA/VOMITING 12/12/24 02:30 01/11/25 02:29 12/12/24 02:13 4 MG Sodium Chloride 500 ml @ 0 mls/hr Q0M IV 12/11/24 17:00 01/10/25 16:59 Tramadol/ Acetaminophen (UltraCET) 1 tab Q6H PRN PO MODERATE PAIN (4-6) 12/12/24 08:00 12/17/24 07:59 12/12/24 08:12 1 TAB Vitamin B Complex/ Vit C/Folic Acid (Nephrovite Tablet) 1 cap DAILY PO 12/12/24 09:00 01/11/25 08:59 12/13/24 07:31 1 CAP DIAGNOSTICS / RADIOLOGY: [ ] ASSESSMENT: Acute inferior wall myocardial infarction (late presentation, 48 hours after onset), currently pain-free, Q-waves inferiorly, troponin downtrending. Type 2 diabetes mellitus. Acute on chronic kidney disease, stage 4 (creatinine increased from baseline, now improving). Hypertension. Dyslipidemia. 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 Pain with cough and deep inspiration, likely musculoskeletal or post-infarct. PLAN: Patient to continue admitted to ICU Continue dual antiplatelet therapy (aspirin, clopidogrel), atorvastatin, and heparin protocol. Continue insulin sliding scale for glycemic control. Hold beta blockers due to bradycardia and AV block. Monitor cardiac rhythm; external pacemaker in place. Monitor renal function and electrolytes closely. 2D echocardiogram results showed Left ventricle systolic function is moderate to severely depressed, estimated LVEF 35 to 40% Pain management: Continue tramadol as needed, monitor for side effects. Infectious workup: Continue doxycycline as per protocol. Cardiology (Dr. Malone) to follow for further management and pacemaker evaluation. Monitor for recurrence of chest pain, arrhythmias, or signs of heart failure. Educate patient on activity restrictions and warning signs. Case seen and discussed plan with Dr. Laughlin, above plan was formulated ATTESTATION BY PHYSICIAN I have seen and examined the patient. I reviewed the documentation, medical decision making, and treatment plan as noted by the mid-level provider above. I agree with the findings and plan of care. Tomeka Soriano MD, [facility] Dec 13, 2024 14:56
--- NOTE | 2024-12-13 15:55 | PN ---
[facility] PROGRESS NOTE Date Patient Seen: Dec 13, 2024 Time of Visit: 15:42 Supervising Physician: [ ] Primary Care Physician: Cesario Avery. Attending team: [facility] hospitalist team Outpatient Specialists: Inpatient Consults: [facility], critical Care team Cardiology PROBLEM LIST: Late presentation inferior wall STEMI Persistent ST segment elevations. A-V dissociation with stable ventricular rates in the 50s Chest pain with respiration and cough suspicious for pericarditis Mild bibasilar airspace disease, possibly representing infection vs atelectasis, per chest x-ray on 12/11/2024 Hypertension Dyslipidemia Diabetes mellitus type with hyperglycemia- HbA1C:9.3 CKD stage IV Diabetic neuropathy Elevated LFTs INTERVAL HISTORY: Chart reviewed including all laboratory and imaging results. Patient assessed at bedside. He reports chest pain to right upper and left upper chest with coughing. He was administered Dilaudid 0.2 mg IV x1 and alleviated symptoms. Patient also reported feeling dizzy since this morning. He denies any palpitations or shortness for breath at this time. He is currently saturating 98% on 3 L via nasal cannula. Hemodynamically stable. Heart rate in the 50s. He has not required any pacing or dopamine drip. No major overnight events reported. Persistent ST elevations. Due to chest p ain with coughing and inspiration there is a suspicion for pericarditis. Plan: Follow cardiology recs Cardiac monitoring continuously. Heart healthy diet Continues on aspirin, statin, Plavix Antibiotics are ceftriaxone and doxycycline, we are following cultures Multimodal pain management REVIEW OF SYSTEMS: 12 point ROS reviewed with patient. Pertinent positives mentioned above. Otherwise negative. PHYSICAL EXAM: GENERAL: Alert, weak, awake oriented x 3 HEENT: EOMI, Sclera non icteric, moist mucosa NECK: Supple, no JVD, trachea midline LUNGS: Clear breath sounds bilaterally. No wheezes HEART: Regular rate and rhythm. Normal S1 and S2, without murmurs ABD: Abdomen soft, nontender. Bowel sounds present EXT: No clubbing cyanosis or edema NEURO: Alert and oriented to X3, follows commands Vital Signs (last 8hr) Date Time Temp Pulse Resp B/P (MAP) Pulse Ox O2 Delivery O2 Flow Rate FiO2 12/13/24 13:13 53 18 12/13/24 12:00 100 Nasal Cannula* 4 36 12/13/24 12:00 98.1 56 20 121/59 99 Room Air 12/13/24 11:00 52 15 113/54 99 Room Air 12/13/24 10:00 53 16 116/58 98 Room Air 12/13/24 09:00 53 20 112/61 99 Room Air 12/13/24 08:00 54 20 127/60 100 Room Air 12/13/24 08:00 98 Nasal Cannula* 4 36 LABS: Hematology Labs: Test 12/13/24 04:49 Range/Units White Blood Count 20.6 H 4.8-10.8 K/uL Red Blood Count 4.50 4.50-6.20 MIL/uL Hemoglobin 14.1 14.0-18.0 g/dL Hematocrit 41.5 L 42-54 % Mean Corpuscular Volume 92.2 79-99 fL Mean Corpuscular Hemoglobin 31.3 27.0-33.0 pg Mean Corpuscular Hemoglobin Concent 34.0 32.0-36.0 g/dL Red Cell Distribution Width 12.5 11.0-15.5 % Platelet Count 282 130-400 K/uL Mean Platelet Volume 10.6 H 7.5-10.5 fL Nucleated Red Blood Cells 0.0 0.0-0.19 % Chemistry Labs: Test 12/13/24 11:34 12/13/24 04:49 12/12/24 03:33 Range/Units Whole Blood Glucose 210 H 70-110 MG/DL Sodium Level 136 136-145 mmol/L Potassium Level 4.2 3.5-5.1 mmol/L Chloride Level 99 L 101-111 mmol/L Carbon Dioxide Level 25 21-32 mmol/L Blood Urea Nitrogen 61 H 7-18 mg/dL Creatinine 1.7 H 0.5-1.3 mg/dL Glomerular Filtration Rate Calc 41 >90 mL/min Random Glucose 164 H 70-105 mg/dL Total Calcium 8.6 8.5-10.1 mg/dL Phosphorus Level 3.4 2.5-4.9 mg/dL Magnesium Level 2.60 H 1.80-2.40 mg/dL Total Bilirubin 0.8 0.2-1.0 mg/dL Aspartate Amino Transf (AST/SGOT) 260 H 10-37 U/L Alanine Aminotransferase (ALT/SGPT) 52 12-78 U/L Alkaline Phosphatase 106 50-136 U/L Total Protein 7.0 6.0-8.3 g/dL Albumin 2.6 L 3.5-5.0 g/dL Uric Acid 10.3 H 2.6-7.2 mg/dL Troponin I High Sensitivity [id number] *H 4-75 ng/L Thyroid Stimulating Hormone (TSH) 1.51 # 0.36-3.74 uIU/mL Coagulation Labs: Test 12/12/24 22:20 Range/Units Prothrombin Time 11.4 9.6-11.6 SEC Prothromb Time International Ratio 1.08 0.85-1.15 Activated Partial Thromboplast Time 50.7 H 26.3-35.5 SEC DIAGNOSTICS / RADIOLOGY RESULTS: [facility] [address] [place] [address] IMAGING REPORT Signed PATIENT: OLEG FERRARO MR#: [id number] : 1945 SEX: M AGE: 79 LOCATION: [facility] ORDER 0651 STATUS: ADM IN REPORT#: [id number] SERVICE 0800 REASON: STEMI ORDERING PHYSICIAN: JOSE MANUEL DICKSON PROCEDURE: ECHO CMP - ECHO 2-D COMPLETE APPROVED REPORT EXAM: Two-dimensional and M-mode echocardiogram with Doppler and color Doppler. INDICATION ICD: Non ST-elevation [place] I21.4 2D Dimensions RVDd 3.6 cm LVEF(%) 13.3 (>50%) LVED Vol(simp.) 105.0 mL IVSd 1.1 (0.7-1.1cm) FS(%) 6 % LVES Vol(simp.) 64.0 mL LVDd 5.6 (3.8-5.6cm) LA (2D) 5.4 (1.6-4.0cm) LVEF(%, simp.) 39 % PWd 0.9 (0.7-1.1cm) Ao Root(2D) 2.8 (2.0-3.7cm) LA ESV INDEX (BP) 30.74 mL/m2 IVSs 0.9 cm LVOT diam 2.1 (1.8-2.4cm) LVDs 5.2 (2.5-4.0cm) IVC diam 2.1 cm PWs 1.0 cm Deformation Strain Apical 4 -14.2 % Apical 2 -13.8 % Apical 3 -10.4 % Global Strain -12.8 % M-Mode Dimensions EPSS 1.4 cm LA (MM) 4.1 (1.6-4.0cm) Ao Root(MM) 3.5 (2.0-3.7cm) Aortic Valve AoV Vmax 1.1 m/s Ao Peak GR 4.8 mmHg LVOT Vmax 0.6 m/s AoV VTI 0.2 m Ao Mean GR 2.6 mmHg LVOT VTI 0.12 m REED (VMAX) 1.99 cm2 REED (VTI) 2.2 cm2 Mitral Valve MV E Vmax 88.0 cm/s DECEL Time 187 ms P 1/2 T 53 ms MVA (PHT) 4.1 cm2 TDI E/E' Medial 12.4 E/E' Lateral 17.3 Medial E' Peak V 7.11 cm/s Lateral E' Peak V 5.08 cm/s Pulmonary Valve PV Vmax 0.9 m/s PV VTI 0.20 m PV Mean GR 2.0 mmHg PV Peak GR 3.5 mmHg Tricuspid Valve TR Vmax 1.4 m/s RAP (EST) 8 mmHg RVSP 16.0 mmHg TR Peak GR 8.0 mmHg Left Ventricle The left ventricle is mildly dilated. The basal/mid/apical inferior and inferolateral jolley are severely hypokinetic. The basal/mid/apical anterior lateral wall is hypokinetic. The anterior wall is normal in function. Mild concentric left ventricular hypertrophy. Left ventricle systolic function is moderate to severely depressed, estimated LVEF 35 to 40%. Indeterminate diastol ic function. Right Ventricle The right ventricle is normal size. Right ventricle systolic function is mildly depressed, TAPSE 15 mm. Atria The left atrium size is normal. The right atrium size is normal. Aortic Valve Aortic valve is trileaflet. The leaflets are mildly thickened and calcified. Trace aortic regurgitation. There is no aortic valvular stenosis. Mitral Valve Mild mitral annular calcification is noted. The leaflets are mildly thickened and calcified. Mild mitral regurgitation. There is no mitral valve stenosis. Tricuspid Valve The tricuspid valve is normal in structure. Trace tricuspid regurgitation. RVSP is 8 mmHg. Pulmonic Valve Pulmonic valve is not well visualized. Great Vessels The aortic root is normal in size. The IVC is normal in size and collapses <50% with inspiration. Pericardium There is no pericardial effusion. Other Information Quality : Adequate Conclusion The cardiac chambers are normal in size. Mild concentric left ventricular hypertrophy. The basal/mid/apical inferior and inferolateral jolley are severely hypokinetic. The basal/mid/apical anterior lateral wall is hypokinetic. The anterior wall is normal in function. Left ventricle systolic function is moderate to severely depressed, estimated LVEF 35 to 40%. Indeterminate diastolic function. Right ventricle systolic function is mildly depressed, TAPSE 15 mm. Trace aortic regurgitation. Mild mitral regurgitation. Trace tricuspid regurgitation. PASP is 16 mmHg. There is no pericardial effusion. DICTATED BY: LEESA TAVARES MD DATE: 12/12/24839 ELECTRONICALLY SIGNED BY: LEESA TAVARES MD DATE: 12/13/24111 PLAN NEURO: Minimize central acting medications as possible. Fall Precautions. Well lighted room through the day and minimize interruptions through the night to prevent acute delirium. PULMONARY: Supplemental 02 as needed Titrate Fio2 to keep Spo2 > or = 90% DuoNebs and CPT as needed IS hourly while awake for pulmonary hygiene Out of bed to chair as tolerated VAP Bundle CARDIOVASCULAR: Follow hemodynamics left heart catheterization held due to his bradycardia 2D ECHO - revealed 30-40% EF Heparin discontinued , started on Lovenox Titrate vasopressor to keep MAP >65 or systolic blood pressure >95mmHg GI & NUTRITION: Continue nutritional support Aspirations precautions Prokinetic agents and laxatives as needed Will trend LFTs Will order GGT and ultrasound if patient develops abdominal pain or if tomorrows LFTs are deranged KIDNEYS & ELECTROLYTES: Strict monitoring of intake and output Daily weights Avoid nephrotoxic agents Monitor electrolytes and replace as needed Goal urine output of 30mL/hr or 0.5mL/kg/hr ENDOCRINE: Maintain blood glucose between 100-180 at all times. Insulin sliding scale for blood glucose management INFECTIOUS DISEASE: Trend temperature. Child-culture if febrile. HEMATOLOGY & COAGULATION: Monitor H&H. Keep Hgb > 7 Transfuse 1 unit of PRBC for Hgb < 7 Transfuse 1 pack of platelets of platelets < 20, 000 Watch for any signs and symptoms of bleeding SKIN: Pressure ulcer prevention per facility protocol Rehab: PT/OT Code Status: Full Resuscitation Disposition: TBD Critical care time This patient required multiple bedside visits to manage the patient, review blood gases, coordinate with respiratory, nurses, talk to head start coordinator review radiology exams, talk to the family members and discuss advanced directives. I personally spent [45] minutes of critical care time in treatment of this patient. This includes patient management, time at bedside, time reviewing tests, labs, appropriate images and studies, documentation, and patient care coordination. This time excludes separately billable procedures. ATTESTATION BY PHYSICIAN I have seen and examined the patient. I reviewed the documentation, medical de cision making, and treatment plan as noted by the resident provider above. I agree with the findings and plan of care. MD ALLI Walters LAKSHMI MD Dec 13, 2024 15:55
[2024-12-14] VITALS (23 sets, daily range): BP systolic 106–127; BP diastolic 51–63; PULSE 52–61; RESP 14–26; TEMP 97.4–98.2; O2SAT 94–98
[2024-12-14 05:18] LABS: NUCLEATED RED BLOOD CELLS 0.0 % (0.0-0.19); PLATELET COUNT (AUTO) 267.0 K/uL (130-400); RED BLOOD CELL COUNT(AUTO) 4.31 MIL/uL (4.50-6.20); RED CELL DISTRIBUTION WIDTH 12.3 % (11.0-15.5); WHITE BLOOD COUNT (AUTO) 16.0 K/uL (4.8-10.8)
[2024-12-14 05:36] LABS: CREATININE 1.5 mg/dL (0.5-1.3); GLOMERULAR FILTR. RATE CALC 47.0 mL/min (>90); GLUCOSE,RANDOM 171.0 mg/dL (70-105); SODIUM SERUM 136.0 mmol/L (136-145); UREA NITROGEN, BLOOD 61.0 mg/dL (7-18)
--- NOTE | 2024-12-14 07:16 | PN ---
[facility] Cardiology Progress Note CARDIOLOGY PROGRESS NOTE DECEMBER 14, 2024 Problems: 1. Acute inferior wall myocardial infarction with late presentation 48 hours after onset, pain-free at the time of my evaluation and initial troponin of [id number] and Q-waves inferiorly 2. AV dissociation on admission with subsequent second-degree AV block two-to-one 3. Ischemic cardiomyopathy with ejection fraction of 35-40% 4. Acute on chronic kidney disease stage 4 on admission 5. Hypertension 6. Dyslipidemia 7. Diabetes mellitus type 2 8. 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 No rub or new murmur is appreciable. He is resting comfortably flat. Blood pressure this morning is 117/60 heart rate [place] in [place] 50s[place] [address] hemoglobin 13 platelet count [id number]. Potassium 3.4 BUN 61 creatinine 1.5 which continues to improve. Telemetry shows persistent AV dissociation. The patient continues on aspirin atorvastatin clopidogrel Lovenox insulin scale and tramadol. We have avoided beta blockers given his heart block. We have not initiated an GIORGI inhibitor or ARB due to acute renal failure which is resolving. Plans are to consider a permanent pacemaker prior to discharge if AV dissociation does not resolve. LEESA MACIAS MD Dec 14, 2024 07:16
--- NOTE | 2024-12-14 10:55 | PN ---
NEPHROLOGY PROGRESS NOTE Date/Time Patient Seen: Dec 14, 2024 SUBJECTIVE: This is a 79-year-old male with past medical history of diabetes mellitus type He presented to the hospital secondary to chest pain. The patient has been found to have elevated WBC count and elevated BUN and creatinine. The patient has apparently acute [place] and followed by entertainment reporter. No other associated findings. No other aggravating or relieving factors. On arrival to ED the patient had ST-elevation in inferior leads with associated Q-waves. Left heart catheterization was held due to bradycardia. EP continues to monitor patient, possible permanent pacemaker prior to discharge if AV dissociation does not resolve. Continues on antibiotics He was noted to have elevated BUN/creatinine We have been consulted for renal failure Renal function is improving Electrolytes are stable Renal ultrasound was noted He was seen in the ICU, in no acute distress Family at the bedside Condition is critical and guarded REVIEW OF SYSTEMS: GENERAL: Negative for any nausea, vomiting, fevers, chills, or weight loss. NEUROLOGIC: Negative for any blurry vision, blind spots, double vision, facial asymmetry, dysphagia, dysarthria, hemiparesis, hemisensory deficits, vertigo, ataxia. HEENT: Negative for any head trauma, neck trauma, neck stiffness, photophobia, phonophobia, sinusitis, rhinitis. CARDIAC: Negative for any chest pain, dyspnea on exertion, paroxysmal nocturnal dyspnea, peripheral edema. PULMONARY: Negative for any shortness of breath, wheezing, COPD, or TB exposure. GASTROINTESTINAL: Negative for any abdominal pain, nausea, vomiting, bright red blood per rectum, melena. GENITOURINARY: Negative for any dysuria, hematuria, incontinence. INTEGUMENTARY: Negative for any rashes, cuts, insect bites. RHEUMATOLOGIC: Negative for any joint pains, photosensitive rashes, history of vasculitis or kidney problems. HEMATOLOGIC: Negative for any abnormal bruising, frequent infections or bleeding. Vital Signs (last 8hr) Date Time Temp Pulse Resp B/P (MAP) Pulse Ox O2 Delivery O2 Flow Rate FiO2 12/14/24 09:53 53 20 N/Cannula Low lpm 2.0 28 12/14/24 09:53 53 20 12/14/24 08:00 97.5 53 26 121/57 92 Room Air 12/14/24 08:00 94 Room Air* 0 21 12/14/24 07:00 53 24 114/57 97 Room Air 108/25 06:24 52 20 N/Cannula Low lpm 2.0 28 12/14/24 06:24 52 20 12/14/24 05:40 53 17 117/60 94 Nasal Cannula 2.0 12/14/24 04:44 98.1 12/14/24 04:40 53 15 114/57 97 Nasal Cannula 2.0 12/14/24 04:00 97 Nasal Cannula* 2 28 12/14/24 03:40 53 22 113/52 96 Nasal Cannula 2.0 PHYSICAL EXAM: GENERAL: Alert and oriented x 3. No acute distress. Well-nourished. EYES: EOMI. Anicteric. HENT: Moist mucous membranes. No scleral icterus. No cervical lymphadenopathy. LUNGS: Clear to auscultation bilaterally. No accessory muscle use. CARDIOVASCULAR: Regular rate and rhythm. No murmur. No JVD. ABDOMEN: Soft, non-tender and non-distended. No palpable masses. EXTREMITIES: No edema. Non-tender. SKIN: No rashes or lesions. Warm. NEUROLOGIC: No focal neurological deficits. CN II-XII grossly intact, but not individually tested. PSYCHIATRIC: Cooperative. Appropriate mood and affect. Current Medications Medications (Trade) Dose Ordered Sig/Kermit Route PRN Reason Start Time Stop Time Status Last Admin Dose Admin Acetaminophen (TYLenol 500MG TAB) 500 mg Q6H PRN PO MILD PAIN (1-3) 12/11/24 16:30 01/10/25 16:29 Aspirin (Aspirin 81mg Chew Tab) 81 mg DAILY PO 12/12/24 09:00 01/11/25 08:59 12/12/24 08:06 81 MG Atorvastatin Calcium (LIPItor 20MG) 20 mg HS PO 12/11/24 21:00 01/10/25 20:59 12/11/24 20:32 20 MG Ceftriaxone Sodium (Rocephin 2gm Inj) 2 gm Q24H IVPB 12/12/24 04:30 12/22/24 04:29 12/12/24 05:02 2 GM Clopidogrel Bisulfate (plaVIX 75MG) 75 mg DAILY PO 12/12/24 09:00 01/11/25 08:59 12/12/24 08:06 75 MG Doxycycline Hyclate 250 ml @ 125 mls/hr Q12H IV 12/12/24 04:30 10/16/25 04:29 12/12/24 05:02 125 MLS/HR Heparin Sodium (Porcine) (HEParin 5,000 UNIT VIAL) *calculation based on ACTUAL B... AD PRN IV HEPARIN PROTOCOL 12/11/24 16:30 01/10/25 16:29 Heparin Sodium/ Dextrose 250 ml @ 0 mls/hr Q6H IV 12/11/24 16:30 01/10/25 16:29 12/12/24 11:27 0 MLS/HR Insulin Human Regular (humuLIN R 100 UNIT/ML 3ML) INSULIN SLIDING SCAL... ACHS SQ 12/11/24 16:30 01/10/25 16:29 12/12/24 11:28 3 UNIT Metoprolol Tartrate (loprESSOR) 25 mg BID PO 12/11/24 21:00 12/11/24 17:12 DC Ondansetron HCl (zoFRAN 4MG INJ) 4 mg Q6H PRN IVP NAUSEA/VOMITING 12/12/24 02:30 01/11/25 02:29 12/12/24 02:13 4 MG Sodium Chloride 500 ml @ 0 mls/hr Q0M IV 12/11/24 17:00 01/10/25 16:59 Tramadol/ Acetaminophen (UltraCET) 1 tab Q6H PRN PO PAIN LEVEL 7 TO 10 12/12/24 08:00 12/17/24 07:59 12/12/24 08:12 1 TAB Vitamin B Complex/ Vit C/Folic Acid (Nephrovite Tablet) 1 cap DAILY PO 12/12/24 09:00 01/11/25 08:59 12/12/24 08:06 1 CAP LABORATORY: [ ] Hematology Labs: Test 12/14/24 04:56 Range/Units White Blood Count 16.0 H 4.8-10.8 K/uL Red Blood Count 4.31 L 4.50-6.20 MIL/uL Hemoglobin 13.4 L 14.0-18.0 g/dL Hematocrit 39.4 L 42-54 % Mean Corpuscular Volume 91.4 79-99 fL Mean Corpuscular Hemoglobin 31.1 27.0-33.0 pg Mean Corpuscular Hemoglobin Concent 34.0 32.0-36.0 g/dL Red Cell Distribution Width 12.3 11.0-15.5 % Platelet Count 267 130-400 K/uL Mean Platelet Volume 10.7 H 7.5-10.5 fL Nucleated Red Blood Cells 0.0 0.0-0.19 % Chemistry Labs: Test 12/14/24 04:56 12/13/24 19:32 12/13/24 04:49 Range/Units Sodium Level 136 136-145 mmol/L Potassium Level 3.4 L 3.5-5.1 mmol/L Chloride Level 99 L 101-111 mmol/L Carbon Dioxide Level 28 21-32 mmol/L Blood Urea Nitrogen 61 H 7-18 mg/dL Creatinine 1.5 H 0.5-1.3 mg/dL Glomerular Filtration Rate Calc 47 >90 mL/min Random Glucose 171 H 70-105 mg/dL Total Calcium 8.4 L 8.5-10.1 mg/dL Whole Blood Glucose 240 H 70-110 MG/DL Phosphorus Level 3.4 2.5-4.9 mg/dL Magnesium Level 2.60 H 1.80-2.40 mg/dL Total Bilirubin 0.8 0.2-1.0 mg/dL Aspartate Amino Transf (AST/SGOT) 260 H 10-37 U/L Alanine Aminotransferase (ALT/SGPT) 52 12-78 U/L Alkaline Phosphatase 106 50-136 U/L Total Protein 7.0 6.0-8.3 g/dL Albumin 2.6 L 3.5-5.0 g/dL Coagulation Labs: Test 12/12/24 22:20 Range/Units Prothrombin Time 11.4 9.6-11.6 SEC Prothromb Time International Ratio 1.08 0.85-1.15 Activated Partial Thromboplast Time 50.7 H 26.3-35.5 SEC DIAGNOSTICS / RADIOLOGY: [place] [address] [place] [address] IMAGING REPORT Signed PATIENT: OLEG FERRARO MR#: [id number] : 1945 SEX: M AGE: 79 LOCATION: [facility] ORDER [id number] STATUS: ADM IN REPORT#: [id number] SERVICE 0800 REASON: STEMI ORDERING PHYSICIAN: JOSE MANUEL DICKSON PROCEDURE: ECHO [facility] - ECHO 2-D COMPLETE APPROVED REPORT EXAM: Two-dimensional and M-mode echocardiogram with Doppler and color Doppler. INDICATION ICD: Non ST-elevation [place] I21.4 2D Dimensions RVDd 3.6 cm LVEF(%) 13.3 (>50%) LVED Vol(simp.) 105.0 mL IVSd 1.1 (0.7-1.1cm) FS(%) 6 % LVES Vol(simp.) 64.0 mL LVDd 5.6 (3.8-5.6cm) LA (2D) 5.4 (1.6-4.0cm) LVEF(%, simp.) 39 % PWd 0.9 (0.7-1.1cm) Ao Root(2D) 2.8 (2.0-3.7cm) LA ESV INDEX (BP) 30.74 mL/m2 IVSs 0.9 cm LVOT diam 2.1 (1.8-2.4cm) LVDs 5.2 (2.5-4.0cm) IVC diam 2.1 cm PWs 1.0 cm Deformation Strain Apical 4 -14.2 % Apical 2 -13.8 % Apical 3 -10.4 % Global Strain -12.8 % M-Mode Dimensions EPSS 1.4 cm LA (MM) 4.1 (1.6-4.0cm) Ao Root(MM) 3.5 (2.0-3.7cm) Aortic Valve AoV Vmax 1.1 m/s Ao Peak GR 4.8 mmHg LVOT Vmax 0.6 m/s AoV VTI 0.2 m Ao Mean GR 2.6 mmHg LVOT VTI 0.12 m REED (VMAX) 1.99 cm2 REED (VTI) 2.2 cm2 Mitral Valve MV E Vmax 88.0 cm/s DECEL Time 187 ms P 1/2 T 53 ms MVA (PHT) 4.1 cm2 TDI E/E' Medial 12.4 E/E' Lateral 17.3 Medial E' Peak V 7.11 cm/s Lateral E' Peak V 5.08 cm/s Pulmonary Valve PV Vmax 0.9 m/s PV VTI 0.20 m PV Mean GR 2.0 mmHg PV Peak GR 3.5 mmHg Tricuspid Valve TR Vmax 1.4 m/s RAP (EST) 8 mmHg RVSP 16.0 mmHg TR Peak GR 8.0 mmHg Left Ventricle The left ventricle is mildly dilated. The basal/mid/apical inferior and inferolateral jolley are severely hypokinetic. The basal/mid/apical anterior lateral wall is hypokinetic. The anterior wall is normal in function. Mild conc entric left ventricular hypertrophy. Left ventricle systolic function is moderate to severely depressed, estimated LVEF 35 to 40%. Indeterminate diastolic function. Right Ventricle The right ventricle is normal size. Right ventricle systolic function is mildly depressed, TAPSE 15 mm. Atria The left atrium size is normal. The right atrium size is normal. Aortic Valve Aortic valve is trileaflet. The leaflets are mildly thickened and calcified. Trace aortic regurgitation. There is no aortic valvular stenosis. Mitral Valve Mild mitral annular calcification is noted. The leaflets are mildly thickened and calcified. Mild mitral regurgitation. There is no mitral valve stenosis. Tricuspid Valve The tricuspid valve is normal in structure. Trace tricuspid regurgitation. RVSP is 8 mmHg. Pulmonic Valve Pulmonic valve is not well visualized. Great Vessels The aortic root is normal in size. The IVC is normal in size and collapses <50% with inspiration. Pericardium There is no pericardial effusion. Other Information Quality : Adequate Conclusion The cardiac chambers are normal in size. Mild concentric left ventricular hypertrophy. The basal/mid/apical inferior and inferolateral jolley are severely hypokinetic. The basal/mid/apical anterior lateral wall is hypokinetic. The anterior wall is normal in function. Left ventricle systolic function is moderate to severely depressed, estimated L VEF 35 to 40%. Indeterminate diastolic function. Right ventricle systolic function is mildly depressed, TAPSE 15 mm. Trace aortic regurgitation. Mild mitral regurgitation. Trace tricuspid regurgitation. PASP is 16 mmHg. There is no pericardial effusion. DICTATED BY: LEESA TAVARES MD DATE: 12/12/24839 ELECTRONICALLY SIGNED BY: LEESA TAVARES MD DATE: 12/13/24111 PATIENT: OLEG FERRARO MR#: [id number] : 1945 SEX: M AGE: 79 LOCATION: [facility] ORDER 45 STATUS: ADM IN REPORT#: [id number] SERVICE 43 REASON: renal failure ORDERING PHYSICIAN: NIMO BERNARD MD PROCEDURE: RENAL - US RENAL SONOGRAM EXAMINATION: ULTRASOUND OF THE RETROPERITONEUM. CLINICAL HISTORY: Renal failure. COMPARISON: None. TECHNIQUE: Real-time grayscale ultrasound images of the kidneys. FINDINGS: The kidneys are normal in caliber, the right kidney measures 8.9 x 4.9 x 4.6 cm and the left kidney measures 11.4 x 6.9 x 4.8 cm in its craniocaudal, AP, and transverse dimensions respectively. There is normal renal cortical thickness, and cortical echogenicity. There is no renal calculus or hydronephrosis. There are simple cortical cysts that measure 1.9 x 2.0 x 1.7 cm in the upper pole, 4.0 x 2.8 x 2.7 cm in the mid pole, 9.5 x 7.5 x 7.3 cm in the lower pole of the right kidney. There are simple cortical cysts that measure 5.0 x 3.4 x 4.5 cm and 5.9 x 3.6 x 3.9 cm in the mid to lower pole of the left kidney. There is a parapelvic cyst that measures 1.1 x 1.0 cm in the mid pole of the left kidney. The urinary bladder is normal in caliber and wall thickness (0.25 cm). There are no calculi in the urinary bladder. IMPRESSION: Bilateral simple renal cortical cysts. Left renal parapelvic cyst. /[place] DICTATED BY: SHA LATIF Jr., MD DATE: 12/12/2432 ELECTRONICALLY SIGNED BY: SHA LATIF Jr., MD DATE: 12/12/2432 PATIENT: OLEG FERRARO MR#: [id number] : 1945 SEX: M AGE: 79 LOCATION: [facility] ORDER 152 STATUS: ADM IN REPORT#: [id number] SERVICE 1525 REASON: cp ORDERING PHYSICIAN: JULY GANN MD PROCEDURE: CXR1VW - CHEST 1VW EXAM: CR Chest, 1 View. CLINICAL HISTORY: cp COMPARISON: Radiograph dated May 10, 2024 FINDINGS: LUNGS: Mild bibasilar airspace disease may reflect an infectious process versus atelectasis. Continued follow-up is recommended. PLEURAL SPACES: No pleural effusion or pneumothorax. MEDIASTINUM: Cardiac size and mediastinal contours within normal limits. BONES: No acute osseous abnormality. IMPRESSION: 1. Mild bibasilar airspace disease, possibly representing infection or atelectasis. /[place] DICTATED BY: SHA LATIF Jr., MD DATE: 12/11/241733 ELECTRONICALLY SIGNED BY: SHA LATIF Jr., MD DATE: 12/11/241733 ASSESSMENT: Inferior STEMI POA Leukocytosis differential in setting of STEMI versus infection Hyperglycemia secondary to uncontrolled diabetes mellitus type 2 Acute kidney injury Diabetic neuropathy Hypoalbuminemia Mild LFT elevation PLAN: Labs, diagnostic, radiologic exams reviewed and interpreted by myself and supervising physician. We have reviewed external records in detail Follow Cardiology/EP recommendations. Require close monitoring of renal function and electrolytes Order CBC, CMP, and electrolytes in am Continue with antibiotics BiPAP as necessary, for respiratory distress IV pressors as needed Monitor blood pressure adjust medication doses as needed Avoid hypotensive episodes May use Dilaudid 0.5 mg IV every 6 hours as needed for severe pain Monitor blood sugars Strict intake, output, and daily weight should be monitored Please renally adjust medications Avoid nephrotoxic and nonsteroidal drugs Avoid contrast if possible Will continue to monitor renal function, anemia, electrolytes Treatment plan discussed with patient Questions were answered We have discussed with the other team physicians in detail about the care plan We will continue to monitor the patient closely Total critical care time spent with patient, nursing staff, critical care team over 35 minutes ATTESTATION BY PHYSICIAN I have seen and examined the patient. I reviewed the documentation, medical decision making, and treatment plan as noted by the mid-level provider above. I agree with the findings and plan of care. NIMO BERNARD MD, [facility] Dec 14, 2024 10:55
--- NOTE | 2024-12-14 17:30 | NUR ---
TRANSFER REPORT GIVEN TO NOHEMI ELLIOTT, PT TRANSFERRED VIA BED TO ROOM 228. PT'S BROTHER WHO IS AT BEDSIDE NOTIFIED OF TRANSFER.
--- NOTE | 2024-12-14 18:09 | PN ---
[facility] PROGRESS NOTE Date Patient Seen: Dec 14, 2024 Time of Visit: 0930 Supervising Physician: [JHON RUSSELL MD ] Primary Care Physician: Cesario Avery. Attending team: [employer] hospitalist team Outpatient Specialists: Inpatient Consults: BIS, critical Care team Cardiology PROBLEM LIST: acute hypoxic resp failure Late presentation inferior wall STEMI Persistent ST segment elevations. A-V dissociation with stable ventricular rates in the 50s Chest pain with respiration and cough suspicious for pericarditis Suspected CAP POA Hypertension Dyslipidemia Diabetes mellitus type with hyperglycemia- HbA1C:9.3 CKD stage IV Diabetic neuropathy Elevated LFTs INTERVAL HISTORY: No major overnight events. He is hemodynamically stable. SB 57 BPM on the bedside monitor. He denies chest pain or trouble breathing. continues empirically on antibiotics for suspected CAP. Kidney function continues to improve Cr 1.5. we will continue to follow cardiology recommendations. Stable to downgrade to PCCU. Plan: Follow cardiology recs Cardiac monitoring continuously. Heart healthy diet Continues on aspirin, statin, Plavix Antibiotics are ceftriaxone and doxycycline, we are following cultures Multimodal pain management CT chest without contrast in am. REVIEW OF SYSTEMS: 12 point ROS reviewed with patient. Pertinent positives mentioned above. Otherwise negative. PHYSICAL EXAM: GENERAL: Alert, weak, awake oriented x 3 HEENT: EOMI, Sclera non icteric, moist mucosa NECK: Supple, no JVD, trachea midline LUNGS: Clear breath sounds bilaterally. No wheezes HEART: Regular rate and rhythm. Normal S1 and S2, without murmurs ABD: Abdomen soft, nontender. Bowel sounds present EXT: No clubbing cyanosis or edema NEURO: Alert and oriented to X3, follows commands Vital Signs (last 8hr) Date Time Temp Pulse Resp B/P (MAP) Pulse Ox O2 Delivery O2 Flow Rate FiO2 12/14/24 16:00 97.9 57 15 123/59 92 Nasal Cannula 2.0 12/14/24 12:00 97.9 55 22 127/61 94 Nasal Cannula 2.0 12/14/24 11:00 55 15 116/59 98 Nasal Cannula 2.0 LABS: Hematology Labs: Test 12/14/24 04:56 Range/Units White Blood Count 16.0 H 4.8-10.8 K/uL Red Blood Count 4.31 L 4.50-6.20 MIL/uL Hemoglobin 13.4 L 14.0-18.0 g/dL Hematocrit 39.4 L 42-54 % Mean Corpuscular Volume 91.4 79-99 fL Mean Corpuscular Hemoglobin 31.1 27.0-33.0 pg Mean Corpuscular Hemoglobin Concent 34.0 32.0-36.0 g/dL Red Cell Distribution Width 12.3 11.0-15.5 % Platelet Count 267 130-400 K/uL Mean Platelet Volume 10.7 H 7.5-10.5 fL Nucleated Red Blood Cells 0.0 0.0-0.19 % Chemistry Labs: Test 12/14/24 16:04 12/14/24 04:56 12/13/24 04:49 Range/Units Whole Blood Glucose 245 H 70-110 MG/DL Sodium Level 136 136-145 mmol/L Potassium Level 3.4 L 3.5-5.1 mmol/L Chloride Level 99 L 101-111 mmol/L Carbon Dioxide Level 28 21-32 mmol/L Blood Urea Nitrogen 61 H 7-18 mg/dL Creatinine 1.5 H 0.5-1.3 mg/dL Glomerular Filtration Rate Calc 47 >90 mL/min Random Glucose 171 H 70-105 mg/dL Total Calcium 8.4 L 8.5-10.1 mg/dL Phosphorus Level 3.4 2.5-4.9 mg/dL Magnesium Level 2.60 H 1.80-2.40 mg/dL Total Bilirubin 0.8 0.2-1.0 mg/dL Aspartate Amino Transf (AST/SGOT) 260 H 10-37 U/L Alanine Aminotransferase (ALT/SGPT) 52 12-78 U/L Alkaline Phosphatase 106 50-136 U/L Total Protein 7.0 6.0-8.3 g/dL Albumin 2.6 L 3.5-5.0 g/dL Coagulation Labs: Test 12/12/24 22:20 Range/Units Prothrombin Time 11.4 9.6-11.6 SEC Prothromb Time International Ratio 1.08 0.85-1.15 Activated Partial Thromboplast Time 50.7 H 26.3-35.5 SEC DIAGNOSTICS / RADIOLOGY RESULTS: [ ] PLAN NEURO: Minimize central acting medications as possible. Fall Precautions. Well lighted room through the day and minimize interruptions through the night to prevent acute delirium. PULMONARY: Supplemental 02 as needed Titrate Fio2 to keep Spo2 > or = 90% DuoNebs and CPT as needed IS hourly while awake for pulmonary hygiene Out of bed to chair as tolerated VAP Bundle CARDIOVASCULAR: Follow hemodynamics left heart catheterization held due to his bradycardia 2D ECHO - revealed 30-40% EF Heparin discontinued , started on Lovenox Titrate vasopressor to keep MAP >65 or systolic blood pressure >95mmHg GI & NUTRITION: Continue nutritional support Aspirations precautions Prokinetic agents and laxatives as needed Will trend LFTs Will order GGT and ultrasound if patient develops abdominal pain or if tomorrows LFTs are deranged KIDNEYS & ELECTROLYTES: Strict monitoring of intake and output Daily weights Avoid nephrotoxic agents Monitor electrolytes and replace as needed Goal urine output of 30mL/hr or 0.5mL/kg/hr ENDOCRINE: Maintain blood glucose between 100-180 at all times. Insulin sliding scale for blood glucose management INFECTIOUS DISEASE: Trend temperature. Child-culture if febrile. HEMATOLOGY & COAGULATION: Monitor H&H. Keep Hgb > 7 Transfuse 1 unit of PRBC for Hgb < 7 Transfuse 1 pack of platelets of platelets < 20, 000 Watch for any signs and symptoms of bleeding SKIN: Pressure ulcer prevention per facility protocol Rehab: PT/OT Code Status: Full Resuscitation Disposition: TBD Total critical care time, 40 minutes ATTESTATION BY PHYSICIAN I attest that I reviewed and discussed the case with the Physician Proof Coin Collector as well as agree with the Physician Proof Coin Collector's findings, plans of care, and documentation above. Jhon Joseph MD, NELLY J AGACN Dec 14, 2024 18:09 JHON JOSEPH MD Dec 15, 2024 07:31
--- NOTE | 2024-12-14 20:47 | PN ---
[facility] PROGRESS NOTE Date of Service: Dec 14, 2024 Time of Service: 20:31 SUBJECTIVE: [Mr. Shailesh Yang is a 79-year-old male with a history of type 2 diabetes mellitus, hypertension, dyslipidemia, and chronic kidney disease (CKD) stage 4, who presented with chest pain. The chest pain began two days prior to admission, described as pressure-like, localized to the right sternal area, non-radiating, and resolved upon arrival to the hospital. He denies associated symptoms such as vomiting, fever, chills, cough, shortness of breath, abdominal pain, or dysuria. He did report episodes of nausea without vomiting. No recent falls or syncopal episodes. He takes insulin and metformin at home, with no prior renal issues or changes in urination. He requests tramadol for pain, which he uses as needed for chronic pain. 12/13/24 was evaluated today in 215, he continues to be symptomatic. Patient feels dizzy on movement. We will continue to follow recommendations from EP physician, Dr. Malone. We will continue to monitor closely. 12/14/2024 Patient was seen today, he reported no dizziness and chest pain, "feeling a lot better than yesterday." As per cardio, patient is still having AV disassociation if not resolved, he will get PPM prior to dc. We will continue to follow. ] REVIEW OF SYSTEMS CONSTITUTIONAL: Denies fevers, chills, or night sweats. No unintentional weight loss reported. NEUROLOGICAL: Denies headache, amaurosis fugax, motor weakness, sensory deficit, vertigo/spinning sensation, gait abnormalities, or tremors. ENT: No hearing loss, otalgia, otorrhea, rhinitis, rhinorrhea, hoarseness, or sore throat. CARDIOVASCULAR: Positive for chest pain. Denied any cough, shortness of breath, orthopnea, PND PULMONARY: Denies any shortness of breath, cough, phlegm/sputum, hemoptysis, pleuritic chest pain. GASTROINTESTINAL: Denies any type of dysphagia to either liquids or solids. Denies nausea, vomiting, pyrosis, early satiety, abdominal pain, diarrhea, constipation, or changes in stool consistency or caliber. Denies coffee-ground emesis, hematemesis, hematochezia, or melanotic stools. GENITOURINARY: Denies frequency, urgency, nocturia, hematuria or incontinence (Storage/Irritative symptoms.) Low urinary stream, straining to void, urinary intermittency or hesitancy, splitting of the voiding stream, terminal dribbling. ENDOCRINOLOGIC: Denies polyuria, polydipsia, polyphagia or heat/cold intolerances. HEMATOLOGIC: Denies thrombophilia/previous clots, or coagulopathy/bleeding disorders. ONCOLOGIC: Denies personal history of malignancy. DERMATOLOGIC: Denies rashes or pruritus. PSYCHIATRIC: Denies any suicidal or homicidal ideation. Denies hallucinations. PHYSICAL EXAM GENERAL APPEARANCE: The patient is awake, alert, and oriented, in no acute cardiopulmonary distress. NEUROLOGICAL: Cranial nerves II-XII grossly intact. Motor is 5/5 in bilateral upper and lower extremities proximal to distal. No sensory deficits. HEENT: Face is symmetric. Pupils are equal and reactive. Extraocular movements are intact. NECK: Supple. No JVD. No thyromegaly. No submental, submandibular, pre- /postauricular, occipital or supraclavicular lymphadenopathy. CHEST: Normal chest expansion. No Telemetry. LUNGS: Absence of any rales, rhonchi or any wheezing. CARDIOVASCULAR: Regular. S1 and S2 normal. No appreciable rubs, murmurs or gallops. ABDOMEN: Soft, nontender, and nondistended. There is no rebound, voluntary gu arding, or rigidity. : Deferred. No Love. EXTREMITIES: Non-edematous and not cyanotic. No clubbing. Good capillary refill. SKIN: No skin breakdown. Vital Signs (last 8hr) Date Time Temp Pulse Resp B/P (MAP) Pulse Ox O2 Delivery O2 Flow Rate FiO2 12/14/24 20:08 97.3 61 18 109/55 95 Room Air 12/14/24 16:00 97.9 57 15 123/59 92 Nasal Cannula 2.0 LABS: Laboratory: Test 12/14/24 16:04 12/14/24 04:56 12/13/24 09:04 12/13/24 04:49 Range/Units Whole Blood Glucose 245 H 70-110 MG/DL White Blood Count 16.0 H 4.8-10.8 K/uL Red Blood Count 4.31 L 4.50-6.20 MIL/uL Hemoglobin 13.4 L 14.0-18.0 g/dL Hematocrit 39.4 L 42-54 % Mean Corpuscular Volume 91.4 79-99 fL Mean Corpuscular Hemoglobin 31.1 27.0-33.0 pg Mean Corpuscular Hemoglobin Concent 34.0 32.0-36.0 g/dL Red Cell Distribution Width 12.3 11.0-15.5 % Platelet Count 267 130-400 K/uL Mean Platelet Volume 10.7 H 7.5-10.5 fL Nucleated Red Blood Cells 0.0 0.0-0.19 % Sodium Level 136 136-145 mmol/L Potassium Level 3.4 L 3.5-5.1 mmol/L Chloride Level 99 L 101-111 mmol/L Carbon Dioxide Level 28 21-32 mmol/L Blood Urea Nitrogen 61 H 7-18 mg/dL Creatinine 1.5 H 0.5-1.3 mg/dL Glomerular Filtration Rate Calc 47 >90 mL/min Random Glucose 171 H 70-105 mg/dL Total Calcium 8.4 L 8.5-10.1 mg/dL Blood Gas Specimen Type Arterial Arterial Blood pH 7.453 H 7.350-7.450 Arterial Blood Partial Pressure CO2 31 L 35-48 mmHg Arterial Blood Partial Pressure O2 89.0 83.0-108.0 mmHg Arterial Blood HCO3 21.1 21.0-28.0 mmol/L Arterial Blood Oxygen Saturation 96.8 94.0-98.0 % Arterial Blood Base Excess -1.8 -2.0-3.0 mmol/L Hemoglobin (Blood Gas) 14.5 13.5-17.5 g/dL Sodium (Blood Gas) 134 L 136-145 MMOL/L Bedside Potassium (Blood Gas) 3.8 3.4-4.5 MMOL/L Bedside Chloride (Blood Gas) 101 98-107 MMOL/L Bedside Glucose (Blood Gas) 194 H 65-95 MG/DL Bedside Ionized Calcium (Blood Gas) 1.11 L 1.15-1.33 MMOL/L Bedside Lactic Acid (Blood Gas) 1.99 H 0.36-0.75 MMOL/L Blood Gas Temperature 37.0 35.5-37.0 CELSIUS Blood Gas Flow-by 4.00 0.00-15.00 L/min Blood Gas Vent Mode 4LNC ROOM AIR FiO2 36.0 % Blood Gas Specimen Comment LR [employer] Phosphorus Level 3.4 2.5-4.9 mg/dL Magnesium Level 2.60 H 1.80-2.40 mg/dL Total Bilirubin 0.8 0.2-1.0 mg/dL Aspartate Amino Transf (AST/SGOT) 260 H 10-37 U/L Alanine Aminotransferase (ALT/SGPT) 52 12-78 U/L Alkaline Phosphatase 106 50-136 U/L Total Protein 7.0 6.0-8.3 g/dL Albumin 2.6 L 3.5-5.0 g/dL Test 12/12/24 22:20 Range/Units Prothrombin Time 11.4 9.6-11.6 SEC Prothromb Time International Ratio 1.08 0.85-1.15 Activated Partial Thromboplast Time 50.7 H 26.3-35.5 SEC Current Medications Medications (Trade) Dose Ordered Sig/Kermit Route PRN Reason Start Time Stop Time Status Last Admin Dose Admin Acetaminophen (TYLenol 500MG TAB) 500 mg Q6H PRN PO MILD PAIN (1-3) 12/11/24 16:30 01/10/25 16:29 Albuterol (DUOneb) 1 UDVIAL Q4H4 12/13/24 16:00 12/14/24 11:32 DC 12/14/24 09:52 1 UDVIAL Albuterol (DUOneb) 1 UDVIAL Q4H4 PRN IH [facility] 12/14/24 11:30 01/12/25 15:59 Aspirin (Aspirin 81mg Chew Tab) 81 mg DAILY PO 12/12/24 09:00 01/11/25 08:59 12/14/24 07:53 81 MG Atorvastatin Calcium (LIPItor 20MG) 20 mg HS PO 12/11/24 21:00 01/10/25 20:59 12/14/24 19:50 20 MG Ceftriaxone Sodium (Rocephin 2gm Inj) 2 gm Q24H IVPB 12/12/24 04:30 12/22/24 04:29 12/14/24 04:36 2 GM Clopidogrel Bisulfate (plaVIX 75MG) 75 mg DAILY PO 12/12/24 09:00 01/11/25 08:59 12/14/24 07:52 75 MG Doxycycline Hyclate 250 ml @ 125 mls/hr Q12H IV 12/12/24 04:30 12/22/24 04:29 12/14/24 16:45 125 MLS/HR Enoxaparin Sodium (Lovenox) 30 mg DAILY SQ 12/13/24 09:00 01/12/25 08:59 12/14/24 07:53 30 MG Heparin Sodium (Porcine) (HEParin 5,000 UNIT VIAL) *calculation based on ACTUAL B... AD PRN IV HEPARIN PROTOCOL 12/11/24 16:30 12/13/24 07:10 DC Heparin Sodium/ Dextrose 250 ml @ 0 mls/hr Q6H IV 12/11/24 16:30 12/13/24 07:10 DC 12/12/24 11:27 0 MLS/HR Hydromorphone HCl (DiLAUDid 0.5MG INJ) 0.2 mg Q4H PRN IVP SEVERE PAIN (7-10) 12/13/24 09:30 12/18/24 09:29 Insulin Human Regular (humuLIN R 100 UNIT/ML 3ML) INSULIN SLIDING SCAL... ACHS SQ 12/11/24 16:30 01/10/25 16:29 12/14/24 16:46 4 UNIT Metoprolol Tartrate (loprESSOR) 25 mg BID PO 12/11/24 21:00 12/11/24 17:12 DC Ondansetron HCl (zoFRAN 4MG INJ) 4 mg Q6H PRN IVP NAUSEA/VOMITING 12/12/24 02:30 01/11/25 02:29 12/12/24 02:13 4 MG Sodium Chloride 500 ml @ 0 mls/hr Q0M IV 12/11/24 17:00 01/10/25 16:59 Tramadol/ Acetaminophen (UltraCET) 1 tab Q6H PRN PO MODERATE PAIN (4-6) 12/12/24 08:00 12/17/24 07:59 12/14/24 00:29 1 TAB Vitamin B Complex/ Vit C/Folic Acid (Nephrovite Tablet) 1 cap DAILY PO 12/12/24 09:00 01/11/25 08:59 12/14/24 07:52 1 CAP DIAGNOSTICS / RADIOLOGY: [ ] ASSESSMENT: Acute inferior wall myocardial infarction (late presentation, 48 hours after onset), currently pain-free, Q-waves inferiorly, troponin downtrending. Persistent AV disassociation Type 2 diabetes mellitus. Acute on chronic kidney disease, stage 4 (creatinine increased from baseline, now improving). Hypertension. Dyslipidemia. 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 Pain with cough and deep inspiration, likely musculoskeletal or post-infarct. PLAN: Patient downgraded to PCCU Continue dual antiplatelet therapy (aspirin, clopidogrel), atorvastatin, and heparin protocol. Continue insulin sliding scale for glycemic control. Hold beta blockers due to bradycardia and AV block. Monitor cardiac rhythm; external pacemaker in place. Monitor renal function and electrolytes closely. 2D echocardiogram results showed Left ventricle systolic function is moderate to severely depressed, estimated LVEF 35 to 40% Pain management: Continue tramadol as needed, monitor for side effects. Infectious workup: Continue doxycycline as per protocol. Cardiology (Dr. Malone) to follow for further management and pacemaker evaluation. Plans for PPM if AV disassociation is not resolved. Monitor for recurrence of chest pain, arrhythmias, or signs of heart failure. Educate patient on activity restrictions and warning signs. Case seen and discussed plan with Dr. Laughlin, above plan was formulated ATTESTATION BY PHYSICIAN I have seen and examined the patient. I reviewed the documentation, medical decision making, and treatment plan as noted by the mid-level provider above. I agree with the findings and plan of care. Tomeka Soriano MD, [facility] Dec 14, 2024 20:47
[2024-12-15] VITALS (9 sets, daily range): BP systolic 121–134; BP diastolic 47–67; PULSE 51–85; RESP 18–21; TEMP 97.5–98.2; O2SAT 93–97
--- NOTE | 2024-12-15 05:34 | NUR ---
per RN Martine unable to bring pt to CT
[2024-12-15 05:41] LABS: IMMATURE GRANULOCYTE ABSOLUTE 0.09 K/uL (0-1); NUCLEATED RED BLOOD CELLS 0.0 % (0.0-0.19); PLATELET COUNT (AUTO) 333 K/uL (130-400); RED BLOOD CELL COUNT(AUTO) 4.27 MIL/uL (4.50-6.20); RED CELL DISTRIBUTION WIDTH 12.4 % (11.0-15.5); WHITE BLOOD COUNT (AUTO) 13.5 K/uL (4.8-10.8)
[2024-12-15 05:58] LABS: ASPARTATE AMINOTRANSFERASE 76.0 U/L (10-37); CREATININE 1.3 mg/dL (0.5-1.3); GLOMERULAR FILTR. RATE CALC 56.0 mL/min (>90); GLUCOSE,RANDOM 123.0 mg/dL (70-105); PHOSPHORUS 2.7 mg/dL (2.5-4.9); SODIUM SERUM 137.0 mmol/L (136-145); TOTAL PROTEIN, SERUM 6.6 g/dL (6.0-8.3); UREA NITROGEN, BLOOD 52.0 mg/dL (7-18)
--- NOTE | 2024-12-15 07:36 | PN ---
[facility] Cardiology Progress Note CARDIOLOGY PROGRESS NOTE December Problems: 1. Acute inferior wall myocardial infarction with late presentation 48 hours after onset, pain-free at the time of my evaluation and initial troponin of [id number] and Q-waves inferiorly 2. AV dissociation on admission with subsequent second-degree AV block two-to-one 3. Ischemic cardiomyopathy with ejection fraction of 35-40% 4. Acute on chronic kidney disease stage 4 on admission 5. Hypertension 6. Dyslipidemia 7. Diabetes mellitus type 2 8. Suspected PAD with amputation of the 2nd toe of the right foot Denies chest pain or shortness of breath. No new murmurs audible on auscultation. Blood pressure is 122/58. Heart rate remains in the 50s. Telemetry shows persistent [place] [address] hemoglobin 13 platelet count [id number]. Potassium 3.5 BUN52 creatinine 1.6. The patient continues on aspirin atorvastatin clopidogrel Lovenox insulin scale and antibiotics. I discussed management yesterday with Dr. Malone. LEESA MACIAS MD Dec 15, 2024 07:36
--- NOTE | 2024-12-15 09:43 | PN ---
[facility] PROGRESS NOTE Date of Service: Dec 15, 2024 Time of Service: 09:43 SUBJECTIVE: [Mr. Shailesh Yang is a 79-year-old male with a history of type 2 diabetes mellitus, hypertension, dyslipidemia, and chronic kidney disease (CKD) stage 4, who presented with chest pain. The chest pain began two days prior to admission, described as pressure-like, localized to the right sternal area, non-radiating, and resolved upon arrival to the hospital. He denies associated symptoms such as vomiting, fever, chills, cough, shortness of breath, abdominal pain, or dysuria. He did report episodes of nausea without vomiting. No recent falls or syncopal episodes. He takes insulin and metformin at home, with no prior renal issues or changes in urination. He requests tramadol for pain, which he uses as needed for chronic pain. 12/13/24 was evaluated today in 215, he continues to be symptomatic. Patient feels dizzy on movement. We will continue to follow recommendations from EP physician, Dr. Malone. We will continue to monitor closely. 12/14/2024 Patient was seen today, he reported no dizziness and chest pain, "feeling a lot better than yesterday." As per cardio, patient is still having AV disassociation if not resolved, he will get PPM prior to dc. We will continue to follow. 12/15/24 Patient was seen in 228, he denies SOB or dizziness. 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 No acute events overnight. ] REVIEW OF SYSTEMS CONSTITUTIONAL: Denies fevers, chills, or night sweats. No unintentional weight loss reported. NEUROLOGICAL: Denies headache, amaurosis fugax, motor weakness, sensory deficit, vertigo/spinning sensation, gait abnormalities, or tremors. ENT: No hearing loss, otalgia, otorrhea, rhinitis, rhinorrhea, hoarseness, or sore throat. CARDIOVASCULAR: Positive for chest pain. Denied any cough, shortness of breath, orthopnea, PND PULMONARY: Denies any shortness of breath, cough, phlegm/sputum, hemoptysis, pleuritic chest pain. GASTROINTESTINAL: Denies any type of dysphagia to either liquids or solids. Denies nausea, vomiting, pyrosis, early satiety, abdominal pain, diarrhea, constipation, or changes in stool consistency or caliber. Denies coffee-ground emesis, hematemesis, hematochezia, or melanotic stools. GENITOURINARY: Denies frequency, urgency, nocturia, hematuria or incontinence (Storage/Irritative symptoms.) Low urinary stream, straining to void, urinary intermittency or hesitancy, splitting of the voiding stream, terminal dribbling. ENDOCRINOLOGIC: Denies polyuria, polydipsia, polyphagia or heat/cold intolerances. HEMATOLOGIC: Denies thrombophilia/previous clots, or coagulopathy/bleeding disorders. ONCOLOGIC: Denies personal history of malignancy. DERMATOLOGIC: Denies rashes or pruritus. PSYCHIATRIC: Denies any suicidal or homicidal ideation. Denies hallucinations. PHYSICAL EXAM GENERAL APPEARANCE: The patient is awake, alert, and oriented, in no acute cardiopulmonary distress. NEUROLOGICAL: Cranial nerves II-XII grossly intact. Motor is 5/5 in bilateral upper and lower extremities proximal to distal. No sensory deficits. HEENT: Face is symmetric. Pupils are equal and reactive. Extraocular movements are intact. NECK: Supple. No JVD. No thyromegaly. No submental, submandibular, pre- /postauricular, occipital or supraclavicular lymphadenopathy. CHEST: Normal chest expansion. No Telemetry. LUNGS: Absence of any rales, rhonchi or any wheezing. CARDIOVASCULAR: Regular. S1 and S2 normal. No appreciable rubs, murmurs or gallops. ABDOMEN: Soft, nontender, and nondistended. There is no rebound, voluntary guarding, or rigidity. : Deferred. No Love. EXTREMITIES: Non-edematous and not cyanotic. No clubbing. Good capillary refill. SKIN: No skin breakdown. Vital Signs (last 8hr) Date Time Temp Pulse Resp B/P (MAP) Pulse Ox O2 Delivery O2 Flow Rate FiO2 12/15/24 08:00 98.1 53 21 123/56 94 Nasal Cannula 2.0 12/15/24 04:00 98.1 85 18 122/58 98 Nasal Cannula 2.0 12/15/24 02:09 20 N/Cannula Low lpm 2.0 28 LABS: Laboratory: Test 12/15/24 06:08 12/15/24 05:33 Range/Units Whole Blood Glucose 140 H 70-110 MG/DL White Blood Count 13.5 H 4.8-10.8 K/uL Red Blood Count 4.27 L 4.50-6.20 MIL/uL Hemoglobin 13.3 L 14.0-18.0 g/dL Hematocrit 38.3 L 42-54 % Mean Corpuscular Volume 89.7 79-99 fL Mean Corpuscular Hemoglobin 31.1 27.0-33.0 pg Mean Corpuscular Hemoglobin Concent 34.7 32.0-36.0 g/dL Red Cell Distribution Width 12.4 11.0-15.5 % Platelet Count 333 130-400 K/uL Mean Platelet Volume 10.9 H 7.5-10.5 fL Immature Granulocyte % (Auto) 0.7 0-1 % Neutrophils (%) (Auto) 74.0 40.0-77.0 % Lymphocytes (%) (Auto) 11.5 L 21.0-51.0 % Monocytes (%) (Auto) 12.6 3.0-13.0 % Eosinophils (%) (Auto) 1.0 0.0-8.0 % Basophils (%) (Auto) 0.2 0.0-5.0 % Neutrophils # (Auto) 10.0 H 1.8-7.7 K/uL Lymphocytes # (Auto) 1.6 1.0-4.8 K/uL Monocytes # (Auto) 1.7 H 0.1-1.0 K/uL Eosinophils # (Auto) 0.13 0.00-0.70 K/uL Basophils # (Auto) 0.03 0.00-0.20 K/uL Absolute Immature Granulocyte (auto 0.09 0-1 K/uL Nucleated Red Blood Cells 0.0 0.0-0.19 % Sodium Level 137 136-145 mmol/L Potassium Level 3.5 3.5-5.1 mmol/L Chloride Level 101 101-111 mmol/L Carbon Dioxide Level 24 21-32 mmol/L Blood Urea Nitrogen 52 H 7-18 mg/dL Creatinine 1.3 0.5-1.3 mg/dL Glomerular Filtration Rate Calc 56 >90 mL/min Random Glucose 123 H 70-105 mg/dL Total Calcium 8.3 L 8.5-10.1 mg/dL Phosphorus Level 2.7 2.5-4.9 mg/dL Magnesium Level 2.70 H 1.80-2.40 mg/dL Total Bilirubin 0.7 0.2-1.0 mg/dL Aspartate Amino Transf (AST/SGOT) 76 H 10-37 U/L Alanine Aminotransferase (ALT/SGPT) 33 12-78 U/L Alkaline Phosphatase 101 50-136 U/L Total Protein 6.6 6.0-8.3 g/dL Albumin 2.3 L 3.5-5.0 g/dL Current Medications Medications (Trade) Dose Ordered Sig/Kermit Route PRN Reason Start Time Stop Time Status Last Admin Dose Admin Acetaminophen (TYLenol 500MG TAB) 500 mg Q6H PRN PO MILD PAIN (1-3) 12/11/24 16:30 01/10/25 16:29 Albuterol (DUOneb) 1 UDVIAL Q4H4 IH 12/13/24 16:00 12/14/24 11:32 DC 12/14/24 09:52 1 UDVIAL Albuterol (DUOneb) 1 UDVIAL Q4H4 PRN IH WHEEZING 12/14/24 11:30 01/12/25 15:59 Aspirin (Aspirin 81mg Chew Tab) 81 mg DAILY PO 12/12/24 09:00 01/11/25 08:59 12/14/24 07:53 81 MG Atorvastatin Calcium (LIPItor 20MG) 20 mg HS PO 12/11/24 21:00 01/10/25 20:59 12/14/24 19:50 20 MG Ceftriaxone Sodium (Rocephin 2gm Inj) 2 gm Q24H IVPB 12/12/24 04:30 12/22/24 04:29 12/15/24 03:09 2 GM Clopidogrel Bisulfate (plaVIX 75MG) 75 mg DAILY PO 12/12/24 09:00 01/11/25 08:59 12/14/24 07:52 75 MG Doxycycline Hyclate 250 ml @ 125 mls/hr Q12H IV 12/12/24 04:30 12/22/24 04:29 12/15/24 04:32 125 MLS/HR Enoxaparin Sodium (Lovenox) 30 mg DAILY SQ 12/13/24 09:00 01/12/25 08:59 12/14/24 07:53 30 MG Heparin Sodium (Porcine) (HEParin 5,000 UNIT VIAL) *calculation based on ACTUAL B... AD PRN IV HEPARIN PROTOCOL 12/11/24 16:30 12/13/24 07:10 DC Heparin Sodium/ Dextrose 250 ml @ 0 mls/hr Q6H IV 12/11/24 16:30 12/13/24 07:10 DC 12/12/24 11:27 0 MLS/HR Hydromorphone HCl (DiLAUDid 0.5MG INJ) 0.2 mg Q4H PRN IVP SEVERE PAIN (7-10) 12/13/24 09:30 12/18/24 09:29 Insulin Human Regular (humuLIN R 100 UNIT/ML 3ML) INSULIN SLIDING SCAL... ACHS SQ 12/11/24 16:30 01/10/25 16:29 12/14/24 21:11 3 UNIT Metoprolol Tartrate (loprESSOR) 25 mg BID PO 12/11/24 21:00 12/11/24 17:12 DC Ondansetron HCl (zoFRAN 4MG INJ) 4 mg Q6H PRN IVP NAUSEA/VOMITING 12/12/24 02:30 01/11/25 02:29 12/12/24 02:13 4 MG Sodium Chloride 500 ml @ 0 mls/hr Q0M IV 12/11/24 17:00 01/10/25 16:59 Tramadol/ Acetaminophen (UltraCET) 1 tab Q6H PRN PO MODERATE PAIN (4-6) 12/12/24 08:00 12/17/24 07:59 12/14/24 00:29 1 TAB Vitamin B Complex/ Vit C/Folic Acid (Nephrovite Tablet) 1 cap DAILY PO 12/12/24 09:00 01/11/25 08:59 12/14/24 07:52 1 CAP DIAGNOSTICS / RADIOLOGY: [ ] ASSESSMENT: Acute inferior wall myocardial infarction (late presentation, 48 hours after onset), currently pain-free, Q-waves inferiorly, troponin downtrending. Persistent AV disassociation Type 2 diabetes mellitus. Acute on chronic kidney disease, stage 4 (creatinine increased from baseline, now improving). Hypertension. Dyslipidemia. 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 Pain with cough and deep inspiration, likely musculoskeletal or post-infarct. PLAN: Patient downgraded to PCCU Continue dual antiplatelet therapy (aspirin, clopidogrel), atorvastatin, and heparin protocol. Continue insulin sliding scale for glycemic control. Hold beta blockers due to bradycardia and AV block. Monitor cardiac rhythm; external pacemaker in place. Monitor renal function and electrolytes closely. 2D echocardiogram results showed Left ventricle systolic function is moderate to severely depressed, estimated LVEF 35 to 40% Pain management: Continue tramadol as needed, monitor for side effects. Infectious workup: Continue doxycycline as per protocol. Cardiology (Dr. Malone) to follow for further management and pacemaker evaluation. Plans for PPM if AV disassociation is not resolved. Monitor for recurrence of chest pain, arrhythmias, or signs of heart failure. Educate patient on activity restrictions and warning signs. Case seen and discussed plan with Dr. Laughlin, above plan was formulated ATTESTATION BY PHYSICIAN I have seen and examined the patient. I reviewed the documentation, medical decision making, and treatment plan as noted by the mid-level provider above. I agree with the findings and plan of care. Tomeka Soriano MD, [facility] Dec 15, 2024 09:43
--- NOTE | 2024-12-15 13:00 | PN ---
NEPHROLOGY PROGRESS NOTE Date/Time Patient Seen: Dec 15, 2024 SUBJECTIVE: This is a 79-year-old male with past medical history of diabetes mellitus type He presented to the hospital secondary to chest pain. The patient has been found to have elevated WBC count and elevated BUN and creatinine. The patient has apparently acute DC and followed by trauma coordinator. No other associated findings. No other aggravating or relieving factors. On arrival to ED the patient had ST-elevation in inferior leads with associated Q-waves. Left heart catheterization was held due to bradycardia. EP continues to monitor patient, possible permanent pacemaker prior to discharge if AV dissociation does not resolve. Continues on antibiotics He was noted to have elevated BUN/creatinine We have been consulted for renal failure Renal function and electrolytes are stable Renal ultrasound was noted He was seen in the medical floor, in no acute distress Family at the bedside Condition is critical and guarded REVIEW OF SYSTEMS: GENERAL: Negative for any nausea, vomiting, fevers, chills, or weight loss. NEUROLOGIC: Negative for any blurry vision, blind spots, double vision, facial asymmetry, dysphagia, dysarthria, hemiparesis, hemisensory deficits, vertigo, ataxia. HEENT: Negative for any head trauma, neck trauma, neck stiffness, photophobia, phonophobia, sinusitis, rhinitis. CARDIAC: Negative for any chest pain, dyspnea on exertion, paroxysmal nocturnal dyspnea, peripheral edema. PULMONARY: Negative for any shortness of breath, wheezing, COPD, or TB exposure. GASTROINTESTINAL: Negative for any abdominal pain, nausea, vomiting, bright red blood per rectum, melena. GENITOURINARY: Negative for any dysuria, hematuria, incontinence. INTEGUMENTARY: Negative for any rashes, cuts, insect bites. RHEUMATOLOGIC: Negative for any joint pains, photosensitive rashes, history of vasculitis or kidney problems. HEMATOLOGIC: Negative for any abnormal bruising, frequent infections or bleeding. Vital Signs (last 8hr) Date Time Temp Pulse Resp B/P (MAP) Pulse Ox O2 Delivery O2 Flow Rate FiO2 12/15/24 08:00 98.1 53 21 123/56 94 Nasal Cannula 2.0 PHYSICAL EXAM: GENERAL: Alert and oriented x 3. No acute distress. Well-nourished. EYES: EOMI. Anicteric. HENT: Moist mucous membranes. No scleral icterus. No cervical lymphadenopathy. LUNGS: Clear to auscultation bilaterally. No accessory muscle use. CARDIOVASCULAR: Regular rate and rhythm. No murmur. No JVD. ABDOMEN: Soft, non-tender and non-distended. No palpable masses. EXTREMITIES: No edema. Non-tender. SKIN: No rashes or lesions. Warm. NEUROLOGIC: No focal neurological deficits. CN II-XII grossly intact, but not individually tested. PSYCHIATRIC: Cooperative. Appropriate mood and affect. Current Medications Medications (Trade) Dose Ordered Sig/Kermit Route PRN Reason Start Time Stop Time Status Last Admin Dose Admin Acetaminophen (TYLenol 500MG TAB) 500 mg Q6H PRN PO MILD PAIN (1-3) 12/11/24 16:30 01/10/25 16:29 Aspirin (Aspirin 81mg Chew Tab) 81 mg DAILY PO 12/12/24 09:00 01/11/25 08:59 12/12/24 08:06 81 MG Atorvastatin Calcium (LIPItor 20MG) 20 mg HS PO 12/11/24 21:00 01/10/25 20:59 12/11/24 20:32 20 MG Ceftriaxone Sodium (Rocephin 2gm Inj) 2 gm Q24H IVPB 12/12/24 04:30 12/22/24 04:29 12/12/24 05:02 2 GM Clopidogrel Bisulfate (plaVIX 75MG) 75 mg DAILY PO 12/12/24 09:00 01/11/25 08:59 12/12/24 08:06 75 MG Doxycycline Hyclate 250 ml @ 125 mls/hr Q12H IV 12/12/24 04:30 12/22/24 04:29 12/12/24 05:02 125 MLS/HR Heparin Sodium (Porcine) (HEParin 5,000 UNIT VIAL) *calculation based on ACTUAL B... AD PRN IV HEPARIN PROTOCOL 12/11/24 16:30 01/10/25 16:29 Heparin Sodium/ Dextrose 250 ml @ 0 mls/hr Q6H IV 12/11/24 16:30 01/10/25 16:29 12/12/24 11:27 0 MLS/HR Insulin Human Regular (humuLIN R 100 UNIT/ML 3ML) INSULIN SLIDING SCAL... ACHS SQ 12/11/24 16:30 01/10/25 16:29 12/12/24 11:28 3 UNIT Metoprolol Tartrate (loprESSOR) 25 mg BID PO 12/11/24 21:00 12/11/24 17:12 DC Ondansetron HCl (zoFRAN 4MG INJ) 4 mg Q6H PRN IVP NAUSEA/VOMITING 12/12/24 02:30 01/11/25 02:29 12/12/24 02:13 4 MG Sodium Chloride 500 ml @ 0 mls/hr Q0M IV 12/11/24 17:00 01/10/25 16:59 Tramadol/ Acetaminophen (UltraCET) 1 tab Q6H PRN PO PAIN LEVEL 7 TO 10 12/12/24 08:00 12/17/24 07:59 12/12/24 08:12 1 TAB Vitamin B Complex/ Vit C/Folic Acid (Nephrovite Tablet) 1 cap DAILY PO 12/12/24 09:00 01/11/25 08:59 12/12/24 08:06 1 CAP LABORATORY: [ ] Hematology Labs: Test 12/15/24 05:33 Range/Units White Blood Count 13.5 H 4.8-10.8 K/uL Red Blood Count 4.27 L 4.50-6.20 MIL/uL Hemoglobin 13.3 L 14.0-18.0 g/dL Hematocrit 38.3 L 42-54 % Mean Corpuscular Volume 89.7 79-99 fL Mean Corpuscular Hemoglobin 31.1 27.0-33.0 pg Mean Corpuscular Hemoglobin Concent 34.7 32.0-36.0 g/dL Red Cell Distribution Width 12.4 11.0-15.5 % Platelet Count 333 130-400 K/uL Mean Platelet Volume 10.9 H 7.5-10.5 fL Immature Granulocyte % (Auto) 0.7 0-1 % Neutrophils (%) (Auto) 74.0 40.0-77.0 % Lymphocytes (%) (Auto) 11.5 L 21.0-51.0 % Monocytes (%) (Auto) 12.6 3.0-13.0 % Eosinophils (%) (Auto) 1.0 0.0-8.0 % Basophils (%) (Auto) 0.2 0.0-5.0 % Neutrophils # (Auto) 10.0 H 1.8-7.7 K/uL Lymphocytes # (Auto) 1.6 1.0-4.8 K/uL Monocytes # (Auto) 1.7 H 0.1-1.0 K/uL Eosinophils # (Auto) 0.13 0.00-0.70 K/uL Basophils # (Auto) 0.03 0.00-0.20 K/uL Absolute Immature Granulocyte (auto 0.09 0-1 K/uL Nucleated Red Blood Cells 0.0 0.0-0.19 % Chemistry Labs: Test 12/15/24 11:55 12/15/24 05:33 Range/Units Whole Blood Glucose 227 #H 70-110 MG/DL Sodium Level 137 136-145 mmol/L Potassium Level 3.5 3.5-5.1 mmol/L Chloride Level 101 101-111 mmol/L Carbon Dioxide Level 24 21-32 mmol/L Blood Urea Nitrogen 52 H 7-18 mg/dL Creatinine 1.3 0.5-1.3 mg/dL Glomerular Filtration Rate Calc 56 >90 mL/min Random Glucose 123 H 70-105 mg/dL Total Calcium 8.3 L 8.5-10.1 mg/dL Phosphorus Level 2.7 2.5-4.9 mg/dL Magnesium Level 2.70 H 1.80-2.40 mg/dL Total Bilirubin 0.7 0.2-1.0 mg/dL Aspartate Amino Transf (AST/SGOT) 76 H 10-37 U/L Alanine Aminotransferase (ALT/SGPT) 33 12-78 U/L Alkaline Phosphatase 101 50-136 U/L Total Protein 6.6 6.0-8.3 g/dL Albumin 2.3 L 3.5-5.0 g/dL DIAGNOSTICS / RADIOLOGY: [place] [address] IMAGING REPORT Signed PATIENT: OLEG FERRARO MR#: [id number] : 1945 SEX: M AGE: 79 LOCATION: 2CH ORDER [id number] STATUS: ADM IN REPORT#: [id number] SERVICE 0800 REASON: STEMI ORDERING PHYSICIAN: JOSE MANUEL DICKSON PROCEDURE: ECHO CMP - ECHO 2-D COMPLETE APPROVED REPORT EXAM: Two-dimensional and M-mode echocardiogram with Doppler and color Doppler. INDICATION ICD: Non ST-elevation DC I21.4 2D Dimensions RVDd 3.6 cm LVEF(%) 13.3 (>50%) LVED Vol(simp.) 105.0 mL IVSd 1.1 (0.7-1.1cm) FS(%) 6 % LVES Vol(simp.) 64.0 mL LVDd 5.6 (3.8-5.6cm) LA (2D) 5.4 (1.6-4.0cm) LVEF(%, simp.) 39 % PWd 0.9 (0.7-1.1cm) Ao Root(2D) 2.8 (2.0-3.7cm) LA ESV INDEX (BP) 30.74 mL/m2 IVSs 0.9 cm LVOT diam 2.1 (1.8-2.4cm) LVDs 5.2 (2.5-4.0cm) IVC diam 2.1 cm PWs 1.0 cm Deformation Strain Apical 4 -14.2 % Apical 2 -13.8 % Apical 3 -10.4 % Global Strain -12.8 % M-Mode Dimensions EPSS 1.4 cm LA (MM) 4.1 (1.6-4.0cm) Ao Root(MM) 3.5 (2.0-3.7cm) Aortic Valve AoV Vmax 1.1 m/s Ao Peak GR 4.8 mmHg LVOT Vmax 0.6 m/s AoV VTI 0.2 m Ao Mean GR 2.6 mmHg LVOT VTI 0.12 m REED (VMAX) 1.99 cm2 REED (VTI) 2.2 cm2 Mitral Valve MV E Vmax 88.0 cm/s DECEL Time 187 ms P 1/2 T 53 ms MVA (PHT) 4.1 cm2 TDI E/E' Medial 12.4 E/E' Lateral 17.3 Medial E' Peak V 7.11 cm/s Lateral E' Peak V 5.08 cm/s Pulmonary Valve PV Vmax 0.9 m/s PV VTI 0.20 m PV Mean GR 2.0 mmHg PV Peak GR 3.5 mmHg Tricuspid Valve TR Vmax 1.4 m/s RAP (EST) 8 mmHg RVSP 16.0 mmHg TR Peak GR 8.0 mmHg Left Ventricle The left ventricle is mildly dilated. The basal/mid/apical inferior and inferolateral jolley are severely hypokinetic. The basal/mid/apical anterior lateral wall is hypokinetic. The anterior wall is normal in function. Mild concentric left ventricular hypertrophy. Left ventricle systolic function is moderate to severely depressed, estimated LVEF 35 to 40%. Indeterminate diastolic function. Right Ventricle The right ventricle is normal size. Right ventricle systolic function is mildly depressed, TAPSE 15 mm. Atria The left atrium size is normal. The right atrium size is normal. Aortic Valve Aortic valve is trileaflet. The leaflets are mildly thickened and calcified. Trace aortic regurgitation. There is no aortic valvular stenosis. Mitral Valve Mild mitral annular calcification is noted. The leaflets are mildly thickened and calcified. Mild mitral regurgitation. There is no mitral valve stenosis. Tricuspid Valve The tricuspid valve is normal in structure. Trace tricuspid regurgitation. RVSP is 8 mmHg. Pulmonic Valve Pulmonic valve is not well visualized. Great Vessels The aortic root is normal in size. The IVC is normal in size and collapses <50% with inspiration. Pericardium There is no pericardial effusion. Other Information Quality : Adequate Conclusion The cardiac chambers are normal in size. Mild concentric left ventricular hypertrophy. The basal/mid/apical inferior and inferolateral jolley are severely hypokinetic. The basal/mid/apical anterior lateral wall is hypokinetic. The anterior wall is normal in function. Left ventricle systolic function is moderate to severely depressed, estimated LVEF 35 to 40%. Indeterminate diastolic function. Right ventricle systolic function is mildly depressed, TAPSE 15 mm. Trace aortic regurgitation. Mild mitral regurgitation. Trace tricuspid regurgitation. PASP is 16 mmHg. There is no pericardial effusion. DICTATED BY: LEESA TAVARES MD DATE: 12/12/24839 ELECTRONICALLY SIGNED BY: LEESA TAVARES MD DATE: 12/13/24111 PATIENT: OLEG FERRARO MR#: [id number] : 1945 SEX: M AGE: 79 LOCATION: [facility] ORDER 45 STATUS: ADM IN REPORT#: [id number] SERVICE 43 REASON: renal failure ORDERING PHYSICIAN: NIMO BERNARD MD PROCEDURE: RENAL - US RENAL SONOGRAM EXAMINATION: ULTRASOUND OF THE RETROPERITONEUM. CLINICAL HISTORY: Renal failure. COMPARISON: None. TECHNIQUE: Real-time grayscale ultrasound images of the kidneys. FINDINGS: The kidneys are normal in caliber, the right kidney measures 8.9 x 4.9 x 4.6 cm and the left kidney measures 11.4 x 6.9 x 4.8 cm in its craniocaudal, AP, and transverse dimensions respectively. There is normal renal cortical thickness, and cortical echogenicity. There is no renal calculus or hydronephrosis. There are simple cortical cysts that measure 1.9 x 2.0 x 1.7 cm in the upper pole, 4.0 x 2.8 x 2.7 cm in the mid pole, 9.5 x 7.5 x 7.3 cm in the lower pole of the right kidney. There are simple cortical cysts that measure 5.0 x 3.4 x 4.5 cm and 5.9 x 3.6 x 3.9 cm in the mid to lower pole of the left kidney. There is a parapelvic cyst that measures 1.1 x 1.0 cm in the mid pole of the left kidney. The urinary bladder is normal in caliber and wall thickness (0.25 cm). There are no calculi in the urinary bladder. IMPRESSION: Bilateral simple renal cortical cysts. Left renal parapelvic cyst. /[place] DICTATED BY: SHA LATIF Jr., MD DATE: 12/12/2432 ELECTRONICALLY SIGNED BY: SHA LATIF Jr., MD DATE: 12/12/2432 PATIENT: OLEG FERRARO MR#: [id number] : 1945 SEX: M AGE: 79 LOCATION: [facility] ORDER 25 STATUS: ADM IN REPORT#: [id number] SERVICE 24 REASON: cp ORDERING PHYSICIAN: JULY GANN MD PROCEDURE: CXR1VW - CHEST 1VW EXAM: CR Chest, 1 View. CLINICAL HISTORY: cp COMPARISON: Radiograph dated May 10, 2024 FINDINGS: LUNGS: Mild bibasilar airspace disease may reflect an infectious process versus atelectasis. Continued follow-up is recommended. PLEURAL SPACES: No pleural effusion or pneumothorax. MEDIASTINUM: Cardiac size and mediastinal contours within normal limits. BONES: No acute osseous abnormality. IMPRESSION: 1. Mild bibasilar airspace disease, possibly representing infection or atelectasis. /[place] DICTATED BY: SHA LATIF Jr., MD DATE: 12/11/241733 ELECTRONICALLY SIGNED BY: SHA LATIF Jr., MD DATE: 12/11/241733 ASSESSMENT: Inferior STEMI POA Leukocytosis differential in setting of STEMI versus infection Hyperglycemia secondary to uncontrolled diabetes mellitus type 2 Acute kidney injury Diabetic neuropathy Hypoalbuminemia Mild LFT elevation PLAN: Labs, diagnostic, radiologic exams reviewed and interpreted by myself and supervising physician. We have reviewed external records in detail Follow Cardiology/EP recommendations. Require close monitoring of renal function and electrolytes Order CBC, CMP, and electrolytes in am Continue with antibiotics BiPAP as necessary, for respiratory distress Monitor blood pressure adjust medication doses as needed May use Dilaudid 0.5 mg IV every 6 hours as needed for severe pain Monitor blood sugars Strict intake, output, and daily weight should be monitored Please renally adjust medications Avoid nephrotoxic and nonsteroidal drugs Avoid contrast if possible Will continue to monitor renal function, anemia, electrolytes Treatment plan discussed with patient Questions were answered We have discussed with the other team physicians in detail about the care plan We will continue to monitor the patient closely ATTESTATION BY PHYSICIAN I have seen and examined the patient. I reviewed the documentation, medical decision making, and treatment plan as noted by the mid-level provider above. I agree with the findings and plan of care. NIMO BERNARD MD, ELIZABETH FNP Dec 15, 2024 13:00
--- NOTE | 2024-12-15 14:53 | PN ---
[facility] PROGRESS NOTE Date Patient Seen: Dec 15, 2024 Time of Visit: 1032 Supervising Physician: Dr. Brice Primary Care Physician: Cesario Avery. Attending team: [facility] hospitalist team Outpatient Specialists: Inpatient Consults: BIS, critical Care team Cardiology PROBLEM LIST: acute hypoxic resp failure Late presentation inferior wall STEMI Persistent ST segment elevations. A-V dissociation with stable ventricular rates in the 50s Acute left lower lobe pneumonia Chest pain with respiration and cough suspicious for pericarditis Suspected CAP POA Hypertension Dyslipidemia Diabetes mellitus type with hyperglycemia- HbA1C:9.3 CKD stage IV Diabetic neuropathy Elevated LFTs INTERVAL HISTORY: No major overnight events. He is hemodynamically stable. SB 57 BPM on the bedside monitor. He denies chest pain or trouble breathing. continues empirically on antibiotics for suspected CAP. Kidney function continues to improve Cr 1.5. we will continue to follow cardiology recommendations. Stable to downgrade to PCCU. 12/15 patient was seen and examined by bedside with family present. Sitting up in chair on room air appears to be tolerating well. At time of visit patient denies any chest pain or shortness of breadth. Denies nausea vomiting or abdominal pain. Patient is tentatively scheduled for a permanent pacemaker tomorrow 12/16/2024. Patient has remained hemodynamically stable. Patient's serum creatinine level trending down today 1.3 upon admission 3.0. Patient we will continue with current IV antibiotics for left lower lobe pneumonia. Dispo per primary team Plan: Follow cardiology recs Cardiac monitoring continuously. Heart healthy diet Continues on aspirin, statin, Plavix Antibiotics are ceftriaxone and doxycycline, we are following cultures Multimodal pain management Dispo per primary team REVIEW OF SYSTEMS: 12 point ROS reviewed with patient. Pertinent positives mentioned above. Otherwise negative. PHYSICAL EXAM: GENERAL: Alert, weak, awake oriented x 3 HEENT: EOMI, Sclera non icteric, moist mucosa NECK: Supple, no JVD, trachea midline LUNGS: Clear breath sounds bilaterally. No wheezes HEART: Regular rate and rhythm. Normal S1 and S2, without murmurs ABD: Abdomen soft, nontender. Bowel sounds present EXT: No clubbing cyanosis or edema NEURO: Alert and oriented to X3, follows commands Vital Signs (last 8hr) Date Time Temp Pulse Resp B/P (MAP) Pulse Ox O2 Delivery O2 Flow Rate FiO2 12/15/24 12:00 97.9 51 20 124/63 93 Room Air 12/15/24 08:00 98.1 53 21 123/56 94 Nasal Cannula 2.0 12/15/24 08:00 93 Room Air* 0 21 LABS: Hematology Labs: Test 12/15/24 05:33 Range/Units White Blood Count 13.5 H 4.8-10.8 K/uL Red Blood Count 4.27 L 4.50-6.20 MIL/uL Hemoglobin 13.3 L 14.0-18.0 g/dL Hematocrit 38.3 L 42-54 % Mean Corpuscular Volume 89.7 79-99 fL Mean Corpuscular Hemoglobin 31.1 27.0-33.0 pg Mean Corpuscular Hemoglobin Concent 34.7 32.0-36.0 g/dL Red Cell Distribution Width 12.4 11.0-15.5 % Platelet Count 333 130-400 K/uL Mean Platelet Volume 10.9 H 7.5-10.5 fL Immature Granulocyte % (Auto) 0.7 0-1 % Neutrophils (%) (Auto) 74.0 40.0-77.0 % Lymphocytes (%) (Auto) 11.5 L 21.0-51.0 % Monocytes (%) (Auto) 12.6 3.0-13.0 % Eosinophils (%) (Auto) 1.0 0.0-8.0 % Basophils (%) (Auto) 0.2 0.0-5.0 % Neutrophils # (Auto) 10.0 H 1.8-7.7 K/uL Lymphocytes # (Auto) 1.6 1.0-4.8 K/uL Monocytes # (Auto) 1.7 H 0.1-1.0 K/uL Eosinophils # (Auto) 0.13 0.00-0.70 K/uL Basophils # (Auto) 0.03 0.00-0.20 K/uL Absolute Immature Granulocyte (auto 0.09 0-1 K/uL Nucleated Red Blood Cells 0.0 0.0-0.19 % Chemistry Labs: Test 12/15/24 11:55 12/15/24 05:33 Range/Units Whole Blood Glucose 227 #H 70-110 MG/DL Sodium Level 137 136-145 mmol/L Potassium Level 3.5 3.5-5.1 mmol/L Chloride Level 101 101-111 mmol/L Carbon Dioxide Level 24 21-32 mmol/L Blood Urea Nitrogen 52 H 7-18 mg/dL Creatinine 1.3 0.5-1.3 mg/dL Glomerular Filtration Rate Calc 56 >90 mL/min Random Glucose 123 H 70-105 mg/dL Total Calcium 8.3 L 8.5-10.1 mg/dL Phosphorus Level 2.7 2.5-4.9 mg/dL Magnesium Level 2.70 H 1.80-2.40 mg/dL Total Bilirubin 0.7 0.2-1.0 mg/dL Aspartate Amino Transf (AST/SGOT) 76 H 10-37 U/L Alanine Aminotransferase (ALT/SGPT) 33 12-78 U/L Alkaline Phosphatase 101 50-136 U/L Total Protein 6.6 6.0-8.3 g/dL Albumin 2.3 L 3.5-5.0 g/dL DIAGNOSTICS / RADIOLOGY RESULTS: na PLAN NEURO: Minimize central acting medications as possible. Maintain fall precautions, adequate lighting during the day PULMONARY: Supplemental 02 as needed. Maintain aspiration precautions at all times CARDIOVASCULAR: Follow hemodynamics. Vital signs per facility protocol GI & NUTRITION: Continue with nutritional support. Continue stool softeners and laxatives as needed. KIDNEYS & ELECTROLYTES: Strict monitoring of intake, output and overall fluid balance. Avoid nephrotoxic medications to the extent possible. Medications to be dosed according to renal function. Monitor electrolytes and replace as needed ENDOCRINE: Maintain blood glucose between 100-180 at all times. Hypoglycemia protocol in place INFECTIOUS DISEASE: Trend temperature, WBC and procalcitonin level Follow cultures, deescalate antibiotics as soon as possible. Panculture if new onset fever ONCOLOGY/HEMATOLOGY/COAGULATION: Monitor for s/s of bleeding Monitor hemoglobin, coagulation studies as needed SKIN: Pressure ulcer prevention per facility protocol Specialty mattress ORTHO/REHAB: Continue PT/OT Prophylaxis: Continue GI and DVT prophylaxis Code Status: Full Resuscitation Disposition: TBD Other: Case discussed with supervising physician plan of care agreed upon DONTAE QUINN Dec 15, 2024 14:53
[2024-12-16] VITALS (11 sets, daily range): BP systolic 110–132; BP diastolic 53–73; PULSE 49–91; RESP 18–21; TEMP 97.5–98.8; O2SAT 95–99
[2024-12-16 03:43] LABS: NUCLEATED RED BLOOD CELLS 0.0 % (0.0-0.19); PLATELET COUNT (AUTO) 336.0 K/uL (130-400); RED BLOOD CELL COUNT(AUTO) 4.12 MIL/uL (4.50-6.20); RED CELL DISTRIBUTION WIDTH 12.2 % (11.0-15.5); WHITE BLOOD COUNT (AUTO) 13.9 K/uL (4.8-10.8)
[2024-12-16 04:21] LABS: ASPARTATE AMINOTRANSFERASE 53.0 U/L (10-37); CREATININE 1.4 mg/dL (0.5-1.3); GLOMERULAR FILTR. RATE CALC 51.0 mL/min (>90); GLUCOSE,RANDOM 87.0 mg/dL (70-105); SODIUM SERUM 139.0 mmol/L (136-145); TOTAL PROTEIN, SERUM 6.3 g/dL (6.0-8.3); UREA NITROGEN, BLOOD 48.0 mg/dL (7-18)
--- NOTE | 2024-12-16 07:08 | PN ---
[facility] Cardiology Progress Note CARDIOLOGY PROGRESS NOTE DECEMBER 16, 2024 Problems: 1. Acute inferior wall myocardial infarction with late presentation 48 hours after onset, pain-free at the time of my evaluation and initial troponin of [id number] and Q-waves inferiorly 2. AV dissociation on admission with subsequent second-degree AV block two-to-one 3. Ischemic cardiomyopathy with ejection fraction of 35-40% 4. Acute on chronic kidney disease stage 4 on admission 5. Hypertension 6. Dyslipidemia 7. Diabetes mellitus type 2 8. Suspected PAD with amputation of the 2nd toe of the right foot 9. Left lower lobe pneumonia Blood pressure 115/50 heart rate remains in the 50s. The patient is afebrile. White count 36296 hemoglobin 12.8 Platelet count 477102. Potassium 3.4 BUN48 creatinine 1.4. The patient continues on aspirin atorvastatin clopidogrel Lovenox insulin scale. He continues on Rocephin and doxycycline. We have avoided beta blockers given his underlying AV dissociation. Influenza a B and SARS and group strep were all negative on admission. White count has come down [id number]. He has been afebrile since admission. This morning he continues in AV dissociation. We will wait a decision from Dr. Malone as to whether or not he requires a permanent pacemaker. Timing we will also depend on the status of his underlying infection. Acute renal failure is resolving. Creatinine in the few months ago was 1.0. He was 3.0 on admission is down to 1.4. CT scan of the chest was performed yesterday and report is pending. LEESA MACIAS MD Dec 16, 2024 07:08
[2024-12-16] MEDS ORDERED: SODIUM BICARB 50MEQ 50ML VIAL 50 ML ONE (07:16)
[2024-12-16] MEDS ORDERED: LIDOCAINE HCL 1% MDV 50ML VIAL ONE (07:16)
[2024-12-16] MEDS ORDERED: VANCOMYCIN 1G/250ML KIT 500 ML IV ONE (07:53)
[2024-12-16] MEDS ORDERED: MIDAZOLAM HCL 1 MG/ML 2ML VIAL ONE ×3 (08:06→09:25)
[2024-12-16] MEDS ORDERED: IOHEXOL-350 50ML VIAL IV ONE (08:35)
--- NOTE | 2024-12-16 09:59 | HMCIMG ---
EXAM: CT Chest Without IV contrast. CLINICAL HISTORY: suspected CAP hypoxic resp failure TECHNIQUE: Axial computed tomography images of the chest without intravenous contrast. COMPARISON: 12/11 FINDINGS: LUNGS:Paraseptal emphysematous changes in the bilateral upper lobes are suggestive of underlying changes of COPD. Approximately 5 x 6 mm well-defined nodule in the lateral segment of the right middle lobe???advised follow-up. Ground-glass opacities with areas of consolidation in the bilateral lower lobes, mainly involving the posterobasal segments???suggestive of underlying infective etiology. Tiny nodule approximately 3 x 4 mm in the apicoposterior segment of the left upper lobe (series 3 image 9). Suspicious traction bronchiectasis in the subpleural aspect of the lateral segment of the right middle lobe with adjacent pleural thickening. No pulmonary mass. PLEURAL SPACES: Bilateral mild pleural effusion with underlying subsegmental passive lung collapse, left more than right. No pneumothorax evident. HEART: No cardiomegaly. No significant pericardial effusion. LYMPH NODES: A few enlarged mediastinal lymph nodes, the largest measuring approximately 16 x 9.5 mm. UPPER ABDOMEN: Multiple simple cysts in the bilateral visualized kidneys, the largest measuring approximately 26 x 27 mm in the mid pole of the left kidney. 7.1 x 7.6 cm well-defined cystic lesion with linear calcification just anterior to the left kidney with maintained fat plane???needs dedicated study. BONES: Osseous degenerative changes. No acute osseous abnormality.IMPRESSION: 1. Bilateral lower lobe ground-glass opacities and consolidation, suggestive of infection. 2. Bilateral pleural effusions with subsegmental atelectasis, left greater than right. 3. 5 x 6 mm right middle lobe nodule. LUNG RADS 2: Follow up in 12 months with LDCT. 4. Enlarged mediastinal lymph nodes, largest 16 x 9.5 mm. 5. Calcified cyst in the left kidney. A follow-up renal protocol CT, MRI or ultrasound is recommended. /[place]
--- NOTE | 2024-12-16 11:06 | PN ---
[facility] PROGRESS NOTE Date of Service: Dec 16, 2024 Time of Service: 11:03 SUBJECTIVE: [Mr. Shailesh Yang is a 79-year-old male with a history of type 2 diabetes mellitus, hypertension, dyslipidemia, and chronic kidney disease (CKD) stage 4, who presented with chest pain. The chest pain began two days prior to admission, described as pressure-like, localized to the right sternal area, non-radiating, and resolved upon arrival to the hospital. He denies associated symptoms such as vomiting, fever, chills, cough, shortness of breath, abdominal pain, or dysuria. He did report episodes of nausea without vomiting. No recent falls or syncopal episodes. He takes insulin and metformin at home, with no prior renal issues or changes in urination. He requests tramadol for pain, which he uses as needed for chronic pain. 12/13/24 was evaluated today in 215, he continues to be symptomatic. Patient feels dizzy on movement. We will continue to follow recommendations from EP physician, Dr. Malone. We will continue to monitor closely. 12/14/2024 Patient was seen today, he reported no dizziness and chest pain, "feeling a lot better than yesterday." As per cardio, patient is still having AV disassociation if not resolved, he will get PPM prior to dc. We will continue to follow. 12/15/24 Patient was seen in 228, he denies SOB or dizziness. Route Deliverer on board, we will continue to follow with them and Dr Malone. No acute events overnight. ] 12/16 Patient was resting comfortably in bed. No new complaints or concerns from the patient. No acute events reported overnight. REVIEW OF SYSTEMS CONSTITUTIONAL: Denies fevers, chills, or night sweats. No unintentional weight loss reported. NEUROLOGICAL: Denies headache, amaurosis fugax, motor weakness, sensory deficit, vertigo/spinning sensation, gait abnormalities, or tremors. ENT: No hearing loss, otalgia, otorrhea, rhinitis, rhinorrhea, hoarseness, or sore throat. CARDIOVASCULAR: Positive for chest pain. Denied any cough, shortness of breath, orthopnea, PND PULMONARY: Denies any shortness of breath, cough, phlegm/sputum, hemoptysis, pleuritic chest pain. GASTROINTESTINAL: Denies any type of dysphagia to either liquids or solids. Denies nausea, vomiting, pyrosis, early satiety, abdominal pain, diarrhea, constipation, or changes in stool consistency or caliber. Denies coffee-ground emesis, hematemesis, hematochezia, or melanotic stools. GENITOURINARY: Denies frequency, urgency, nocturia, hematuria or incontinence (Storage/Irritative symptoms.) Low urinary stream, straining to void, urinary intermittency or hesitancy, splitting of the voiding stream, terminal dribbling. ENDOCRINOLOGIC: Denies polyuria, polydipsia, polyphagia or heat/cold intolera nces. HEMATOLOGIC: Denies thrombophilia/previous clots, or coagulopathy/bleeding disorders. ONCOLOGIC: Denies personal history of malignancy. DERMATOLOGIC: Denies rashes or pruritus. PSYCHIATRIC: Denies any suicidal or homicidal ideation. Denies hallucinations. PHYSICAL EXAM GENERAL APPEARANCE: The patient is awake, alert, and oriented, in no acute cardiopulmonary distress. NEUROLOGICAL: Cranial nerves II-XII grossly intact. Motor is 5/5 in bilateral upper and lower extremities proximal to distal. No sensory deficits. HEENT: Face is symmetric. Pupils are equal and reactive. Extraocular movements are intact. NECK: Supple. No JVD. No thyromegaly. No submental, submandibular, pre- /postauricular, occipital or supraclavicular lymphadenopathy. CHEST: Normal chest expansion. No Telemetry. LUNGS: Absence of any rales, rhonchi or any wheezing. CARDIOVASCULAR: Regular. S1 and S2 normal. No appreciable rubs, murmurs or gallops. ABDOMEN: Soft, nontender, and nondistended. There is no rebound, voluntary guarding, or rigidity. : Deferred. No Love. EXTREMITIES: Non-edematous and not cyanotic. No clubbing. Good capillary refill. SKIN: No skin breakdown. Vital Signs (last 8hr) Date Time Temp Pulse Resp B/P (MAP) Pulse Ox O2 Delivery O2 Flow Rate FiO2 12/16/24 08:36 Nasal Cannula 3.0 12/16/24 06:35 49 20 N/Cannula Low lpm 21 12/16/24 04:00 98.8 53 21 115/53 96 Nasal Cannula 3.0 LABS: Laboratory: Test 12/16/24 05:37 12/16/24 03:33 12/15/24 05:33 Range/Units Whole Blood Glucose 101 # 70-110 MG/DL White Blood Count 13.9 H 4.8-10.8 K/uL Red Blood Count 4.12 L 4.50-6.20 MIL/uL Hemoglobin 12.8 L 14.0-18.0 g/dL Hematocrit 37.1 L 42-54 % Mean Corpuscular Volume 90.0 79-99 fL Mean Corpuscular Hemoglobin 31.1 27.0-33.0 pg Mean Corpuscular Hemoglobin Concent 34.5 32.0-36.0 g/dL Red Cell Distribution Width 12.2 11.0-15.5 % Platelet Count 336 130-400 K/uL Mean Platelet Volume 10.4 7.5-10.5 fL Nucleated Red Blood Cells 0.0 0.0-0.19 % Sodium Level 139 136-145 mmol/L Potassium Level 3.4 L 3.5-5.1 mmol/L Chloride Level 102 101-111 mmol/L Carbon Dioxide Level 24 21-32 mmol/L Blood Urea Nitrogen 48 H 7-18 mg/dL Creatinine 1.4 H 0.5-1.3 mg/dL Glomerular Filtration Rate Calc 51 >90 mL/min Random Glucose 87 70-105 mg/dL Total Calcium 8.0 L 8.5-10.1 mg/dL Total Bilirubin 0.6 0.2-1.0 mg/dL Aspartate Amino Transf (AST/SGOT) 53 H 10-37 U/L Alanine Aminotransferase (ALT/SGPT) 28 12-78 U/L Alkaline Phosphatase 89 50-136 U/L Total Protein 6.3 6.0-8.3 g/dL Albumin 2.2 L 3.5-5.0 g/dL Immature Granulocyte % (Auto) 0.7 0-1 % Neutrophils (%) (Auto) 74.0 40.0-77.0 % Lymphocytes (%) (Auto) 11.5 L 21.0-51.0 % Monocytes (%) (Auto) 12.6 3.0-13.0 % Eosinophils (%) (Auto) 1.0 0.0-8.0 % Basophils (%) (Auto) 0.2 0.0-5.0 % Neutrophils # (Auto) 10.0 H 1.8-7.7 K/uL Lymphocytes # (Auto) 1.6 1.0-4.8 K/uL Monocytes # (Auto) 1.7 H 0.1-1.0 K/uL Eosinophils # (Auto) 0.13 0.00-0.70 K/uL Basophils # (Auto) 0.03 0.00-0.20 K/uL Absolute Immature Granulocyte (auto 0.09 0-1 K/uL Phosphorus Level 2.7 2.5-4.9 mg/dL Magnesium Level 2.70 H 1.80-2.40 mg/dL Current Medications Medications (Trade) Dose Ordered Sig/Kermit Route PRN Reason Start Time Stop Time Status Last Admin Dose Admin Acetaminophen (TYLenol 500MG TAB) 500 mg Q6H PRN PO MILD PAIN (1-3) 12/11/24 16:30 01/10/25 16:29 Acetaminophen (TYLenol 500MG TAB) 1,000 mg Q6H PRN PO MILD PAIN (1-3) 12/16/24 10:00 01/15/25 09:59 Acetaminophen/ Codeine Phosphate (TYLenol-coDEINE TAB) 2 tab Q4H PRN PO MODERATE PAIN LEVEL 4 TO 10 12/16/24 10:00 01/15/25 09:59 Albuterol (DUOneb) 1 UDVIAL Q4H4 IH 12/13/24 16:00 12/14/24 11:32 DC 12/14/24 09:52 1 UDVIAL Albuterol (DUOneb) 1 UDVIAL Q4H4 PRN IH WHEEZING 12/14/24 11:30 01/12/25 15:59 Aspirin (Aspirin 81mg Chew Tab) 81 mg DAILY PO 12/12/24 09:00 01/11/25 08:59 12/15/24 12:03 81 MG Atorvastatin Calcium (LIPItor 20MG) 20 mg HS PO 12/11/24 21:00 01/10/25 20:59 12/15/24 20:50 20 MG Ceftriaxone Sodium (Rocephin 2gm Inj) 2 gm Q24H IVPB 12/12/24 04:30 12/22/24 04:29 12/16/24 04:50 2 GM Clopidogrel Bisulfate (plaVIX 75MG) 75 mg DAILY PO 12/12/24 09:00 01/11/25 08:59 12/15/24 12:03 75 MG Doxycycline Hyclate 250 ml @ 125 mls/hr Q12H IV 12/12/24 04:30 12/22/24 04:29 12/16/24 04:51 125 MLS/HR Enoxaparin Sodium (Lovenox) 30 mg DAILY SQ 12/13/24 09:00 01/12/25 08:59 12/15/24 12:04 30 MG Heparin Sodium (Porcine) (HEParin 5,000 UNIT VIAL) *calculation based on ACTUAL B... AD PRN IV HEPARIN PROTOCOL 12/11/24 16:30 12/13/24 07:10 DC Heparin Sodium/ Dextrose 250 ml @ 0 mls/hr Q6H IV 12/11/24 16:30 12/13/24 07:10 DC 12/12/24 11:27 0 MLS/HR Hydromorphone HCl (DiLAUDid 0.5MG INJ) 0.2 mg Q4H PRN IVP SEVERE PAIN (7-10) 12/13/24 09:30 12/18/24 09:29 Insulin Human Regular (humuLIN R 100 UNIT/ML 3ML) INSULIN SLIDING SCAL... ACHS SQ 12/11/24 16:30 01/10/25 16:29 12/15/24 20:51 6 UNIT Metoprolol Tartrate (loprESSOR) 25 mg BID PO 12/11/24 21:00 12/11/24 17:12 DC Ondansetron HCl (zoFRAN 4MG INJ) 4 mg Q6H PRN IVP NAUSEA/VOMITING 12/12/24 02:30 01/11/25 02:29 12/12/24 02:13 4 MG Sodium Chloride 500 ml @ 0 mls/hr Q0M IV 12/11/24 17:00 01/10/25 16:59 Tramadol/ Acetaminophen (UltraCET) 1 tab Q6H PRN PO MODERATE PAIN (4-6) 12/12/24 08:00 12/17/24 07:59 12/14/24 00:29 1 TAB Vitamin B Complex/ Vit C/Folic Acid (Nephrovite Tablet) 1 cap DAILY PO 12/12/24 09:00 01/11/25 08:59 12/15/24 12:03 1 CAP DIAGNOSTICS / RADIOLOGY: [ ] ASSESSMENT: Acute inferior wall myocardial infarction (late presentation, 48 hours after onset), currently pain-free, Q-waves inferiorly, troponin downtrending. Persistent AV disassociation Type 2 diabetes mellitus. Acute on chronic kidney disease, stage 4 (creatinine increased from baseline, now improving). Hypertension. Dyslipidemia. 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 Pain with cough and deep inspiration, likely musculoskeletal or post-infarct. PLAN: Continue dual antiplatelet therapy (aspirin, clopidogrel), atorvastatin Continue insulin sliding scale for glycemic control. Hold beta blockers due to bradycardia and AV block. Monitor cardiac rhythm; external pacemaker in place. Monitor renal function and electrolytes closely. 2D echocardiogram results showed Left ventricle systolic function is moderate to severely depressed, estimated LVEF 35 to 40% Pain management: Continue tramadol as needed, monitor for side effects. Infectious workup: Continue doxycycline as per protocol. Follow up Cardiology appreciate assistance Follow up with EP Cardiology (Dr. Malone) to follow for further management and pacemaker evaluation. Plans for PPM if AV disassociation is not resolved. Monitor for recurrence of chest pain, arrhythmias, or signs of heart failure. Full code Case discussed with patient and nurse at bedside Attention time greater than 30 minutes BIANCA WILLS IV, MD Dec 16, 2024 11:06
--- NOTE | 2024-12-16 12:51 | PN ---
NEPHROLOGY PROGRESS NOTE Date/Time Patient Seen: Dec 16, 2024 SUBJECTIVE: This is a 79-year-old male with past medical history of diabetes mellitus type He presented to the hospital secondary to chest pain. The patient has been found to have elevated WBC count and elevated BUN and creatinine. The patient has apparently acute SC and followed by drug discovery informatics specialist. No other associated findings. No other aggravating or relieving factors. On arrival to ED the patient had ST-elevation in inferior leads with associated Q-waves. S/P Pacemaker placement by Dr. Malone Continues on antibiotics He was noted to have elevated BUN/creatinine We have been consulted for renal failure Renal function and electrolytes are stable Renal ultrasound was noted He was seen in the medical floor, in no acute distress Family at the bedside Condition is critical and guarded REVIEW OF SYSTEMS: GENERAL: Negative for any nausea, vomiting, fevers, chills, or weight loss. NEUROLOGIC: Negative for any blurry vision, blind spots, double vision, facial asymmetry, dysphagia, dysarthria, hemiparesis, hemisensory deficits, vertigo, ataxia. HEENT: Negative for any head trauma, neck trauma, neck stiffness, photophobia, phonophobia, sinusitis, rhinitis. CARDIAC: Negative for any chest pain, dyspnea on exertion, paroxysmal nocturnal dyspnea, peripheral edema. PULMONARY: Negative for any shortness of breath, wheezing, COPD, or TB exposure. GASTROINTESTINAL: Negative for any abdominal pain, nausea, vomiting, bright red blood per rectum, melena. GENITOURINARY: Negative for any dysuria, hematuria, incontinence. INTEGUMENTARY: Negative for any rashes, cuts, insect bites. RHEUMATOLOGIC: Negative for any joint pains, photosensitive rashes, history of vasculitis or kidney problems. HEMATOLOGIC: Negative for any abnormal bruising, frequent infections or bleeding. Vital Signs (last 8hr) Date Time Temp Pulse Resp B/P (MAP) Pulse Ox O2 Delivery O2 Flow Rate FiO2 12/16/24 12:30 83 18 132/67 97 Nasal Cannula 3.0 12/16/24 12:00 98.8 80 18 124/67 99 Nasal Cannula 3.0 12/16/24 11:40 83 20 N/Cannula Low lpm 2.0 28 12/16/24 11:00 97.9 83 18 125/72 96 Nasal Cannula 3.0 12/16/24 10:45 86 18 116/72 99 Nasal Cannula 3.0 12/16/24 10:30 89 18 118/72 96 Nasal Cannula 3.0 12/16/24 10:15 97.5 91 18 122/73 97 Nasal Cannula 3.0 12/16/24 08:36 Nasal Cannula 3.0 12/16/24 06:35 49 20 N/Cannula Low lpm 21 PHYSICAL EXAM: GENERAL: Alert and oriented x 3. No acute distress. Well-nourished. EYES: EOMI. Anicteric. HENT: Moist mucous membranes. No scleral icterus. No cervical lymphadenopathy. LUNGS: Clear to auscultation bilaterally. No accessory muscle use. CARDIOVASCULAR: Regular rate and rhythm. No murmur. No JVD. ABDOMEN: Soft, non-tender and non-distended. No palpable masses. EXTREMITIES: No edema. Non-tender. SKIN: No rashes or lesions. Warm. NEUROLOGIC: No focal neurological deficits. CN II-XII grossly intact, but not individually tested. PSYCHIATRIC: Cooperative. Appropriate mood and affect. Current Medications Medications (Trade) Dose Ordered Sig/Kermit Route PRN Reason Start Time Stop Time Status Last Admin Dose Admin Acetaminophen (TYLenol 500MG TAB) 500 mg Q6H PRN PO MILD PAIN (1-3) 12/11/24 16:30 01/10/25 16:29 Aspirin (Aspirin 81mg Chew Tab) 81 mg DAILY PO 12/12/24 09:00 01/11/25 08:59 12/12/24 08:06 81 MG Atorvastatin Calcium (LIPItor 20MG) 20 mg HS PO 12/11/24 21:00 01/10/25 20:59 12/11/24 20:32 20 MG Ceftriaxone Sodium (Rocephin 2gm Inj) 2 gm Q24H IVPB 12/12/24 04:30 12/22/24 04:29 12/12/24 05:02 2 GM Clopidogrel Bisulfate (plaVIX 75MG) 75 mg DAILY PO 12/12/24 09:00 01/11/25 08:59 12/12/24 08:06 75 MG Doxycycline Hyclate 250 ml @ 125 mls/hr Q12H IV 12/12/24 04:30 12/22/24 04:29 12/12/24 05:02 125 MLS/HR Heparin Sodium (Porcine) (HEParin 5,000 UNIT VIAL) *calculation based on ACTUAL B... AD PRN IV HEPARIN PROTOCOL 12/11/24 16:30 01/10/25 16:29 Heparin Sodium/ Dextrose 250 ml @ 0 mls/hr Q6H IV 12/11/24 16:30 01/10/25 16:29 12/12/24 11:27 0 MLS/HR Insulin Human Regular (humuLIN R 100 UNIT/ML 3ML) INSULIN SLIDING SCAL... ACHS SQ 12/11/24 16:30 01/10/25 16:29 12/12/24 11:28 3 UNIT Metoprolol Tartrate (loprESSOR) 25 mg BID PO 12/11/24 21:00 12/11/24 17:12 DC Ondansetron HCl (zoFRAN 4MG INJ) 4 mg Q6H PRN IVP NAUSEA/VOMITING 12/12/24 02:30 01/11/25 02:29 12/12/24 02:13 4 MG Sodium Chloride 500 ml @ 0 mls/hr Q0M IV 12/11/24 17:00 01/10/25 16:59 Tramadol/ Acetaminophen (UltraCET) 1 tab Q6H PRN PO PAIN LEVEL 7 TO 10 12/12/24 08:00 12/17/24 07:59 12/12/24 08:12 1 TAB Vitamin B Complex/ Vit C/Folic Acid (Nephrovite Tablet) 1 cap DAILY PO 12/12/24 09:00 01/11/25 08:59 12/12/24 08:06 1 CAP LABORATORY: [ ] Hematology Labs: Test 12/16/24 03:33 12/15/24 05:33 Range/Units White Blood Count 13.9 H 4.8-10.8 K/uL Red Blood Count 4.12 L 4.50-6.20 MIL/uL Hemoglobin 12.8 L 14.0-18.0 g/dL Hematocrit 37.1 L 42-54 % Mean Corpuscular Volume 90.0 79-99 fL Mean Corpuscular Hemoglobin 31.1 27.0-33.0 pg Mean Corpuscular Hemoglobin Concent 34.5 32.0-36.0 g/dL Red Cell Distribution Width 12.2 11.0-15.5 % Platelet Count 336 130-400 K/uL Mean Platelet Volume 10.4 7.5-10.5 fL Nucleated Red Blood Cells 0.0 0.0-0.19 % Immature Granulocyte % (Auto) 0.7 0-1 % Neutrophils (%) (Auto) 74.0 40.0-77.0 % Lymphocytes (%) (Auto) 11.5 L 21.0-51.0 % Monocytes (%) (Auto) 12.6 3.0-13.0 % Eosinophils (%) (Auto) 1.0 0.0-8.0 % Basophils (%) (Auto) 0.2 0.0-5.0 % Neutrophils # (Auto) 10.0 H 1.8-7.7 K/uL Lymphocytes # (Auto) 1.6 1.0-4.8 K/uL Monocytes # (Auto) 1.7 H 0.1-1.0 K/uL Eosinophils # (Auto) 0.13 0.00-0.70 K/uL Basophils # (Auto) 0.03 0.00-0.20 K/uL Absolute Immature Granulocyte (auto 0.09 0-1 K/uL Chemistry Labs: Test 12/16/24 11:11 12/16/24 03:33 12/15/24 05:33 Range/Units Whole Blood Glucose 121 H 70-110 MG/DL Sodium Level 139 136-145 mmol/L Potassium Level 3.4 L 3.5-5.1 mmol/L Chloride Level 102 101-111 mmol/L Carbon Dioxide Level 24 21-32 mmol/L Blood Urea Nitrogen 48 H 7-18 mg/dL Creatinine 1.4 H 0.5-1.3 mg/dL Glomerular Filtration Rate Calc 51 >90 mL/min Random Glucose 87 70-105 mg/dL Total Calcium 8.0 L 8.5-10.1 mg/dL Total Bilirubin 0.6 0.2-1.0 mg/dL Aspartate Amino Transf (AST/SGOT) 53 H 10-37 U/L Alanine Aminotransferase (ALT/SGPT) 28 12-78 U/L Alkaline Phosphatase 89 50-136 U/L Total Protein 6.3 6.0-8.3 g/dL Albumin 2.2 L 3.5-5.0 g/dL Phosphorus Level 2.7 2.5-4.9 mg/dL Magnesium Level 2.70 H 1.80-2.40 mg/dL DIAGNOSTICS / RADIOLOGY: [facility] [address] [place] [address] IMAGING REPORT Signed PATIENT: OLEG FERRARO MR#: [id number] : 1945 SEX: M AGE: 79 LOCATION: 2DH ORDER 2300 STATUS: ADM IN REPORT#: [id number] SERVICE 0600 REASON: suspected CAP hypoxic resp failure ORDERING PHYSICIAN: ASHOK RANGEL PROCEDURE: CHEST WO - CT CHEST W/O CONTRAST EXAM: CT Chest Without IV contrast. CLINICAL HISTORY: suspected CAP hypoxic resp failure TECHNIQUE: Axial computed tomography images of the chest without intravenous contrast. COMPARISON: 12/11 FINDINGS: LUNGS:Paraseptal emphysematous changes in the bilateral upper lobes are suggestive of underlying changes of COPD. Approximately 5 x 6 mm well-defined nodule in the lateral segment of the right middle lobe???advised follow-up. Ground-glass opacities with areas of consolidation in the bilateral lower lobes, mainly involving the posterobasal segments???suggestive of underlying infective etiology. Tiny nodule approximately 3 x 4 mm in the apicoposterior segment of the left upper lobe (series 3 image 9). Suspicious traction bronchiectasis in the subpleural aspect of the lateral segment of the right middle lobe with adjacent pleural thickening. No pulmonary mass. PLEURAL SPACES: Bilateral mild pleural effusion with underlying subsegmental passive lung collapse, left more than right. No pneumothorax evident. HEART: No cardiomegaly. No significant pericardial effusion. LYMPH NODES: A few enlarged mediastinal lymph nodes, the largest measuring approximately 16 x 9.5 mm. UPPER ABDOMEN: Multiple simple cysts in the bilateral visualized kidneys, the largest measuring approximately 26 x 27 mm in the mid pole of the left kidney. 7.1 x 7.6 cm well-defined cystic lesion with linear calcification just anterior to the left kidney with maintained fat plane???needs dedicated study. BONES: Osseous degenerative changes. No acute osseous abnormality.IMPRESSION: 1. Bilateral lower lobe ground-glass opacities and consolidation, suggestive of infection. 2. Bilateral pleural effusions with subsegmental atelectasis, left greater than right. 3. 5 x 6 mm right middle lobe nodule. LUNG RADS 2: Follow up in 12 months with LDCT. 4. Enlarged mediastinal lymph nodes, largest 16 x 9.5 mm. 5. Calcified cyst in the left kidney. A follow-up renal protocol CT, MRI or ultrasound is recommended. /[place] DICTATED BY: PUSHPA ACOSTA MD DATE: 12/16/241058 ELECTRONICALLY SIGNED BY: PUSHPA ACOSTA MD DATE: 12/16/241058 PATIENT: OLEG FERRARO MR#: [id number] : 1945 SEX: M AGE: 79 LOCATION: [facility] ORDER 0 STATUS: ADM IN REPORT#: [id number] SERVICE 0800 REASON: STEMI ORDERING PHYSICIAN: JOSE MANUEL DICKSON PROCEDURE: ECHO CMP - ECHO 2-D COMPLETE APPROVED REPORT EXAM: Two-dimensional and M-mode echocardiogram with Doppler and color Doppler. INDICATION ICD: Non ST-elevation SC I21.4 2D Dimensions RVDd 3.6 cm LVEF(%) 13.3 (>50%) LVED Vol(simp.) 105.0 mL IVSd 1.1 (0.7-1.1cm) FS(%) 6 % LVES Vol(simp.) 64.0 mL LVDd 5.6 (3.8-5.6cm) LA (2D) 5.4 (1.6-4.0cm) LVEF(%, simp.) 39 % PWd 0.9 (0.7-1.1cm) Ao Root(2D) 2.8 (2.0-3.7cm) LA ESV INDEX (BP) 30.74 mL/m2 IVSs 0.9 cm LVOT diam 2.1 (1.8-2.4cm) LVDs 5.2 (2.5-4.0cm) IVC diam 2.1 cm PWs 1.0 cm Deformation Strain Apical 4 -14.2 % Apical 2 -13.8 % Apical 3 -10.4 % Global Strain -12.8 % M-Mode Dimensions EPSS 1.4 cm LA (MM) 4.1 (1.6-4.0cm) Ao Root(MM) 3.5 (2.0-3.7cm) Aortic Valve AoV Vmax 1.1 m/s Ao Peak GR 4.8 mmHg LVOT Vmax 0.6 m/s AoV VTI 0.2 m Ao Mean GR 2.6 mmHg LVOT VTI 0.12 m REED (VMAX) 1.99 cm2 REED (VTI) 2.2 cm2 Mitral Valve MV E Vmax 88.0 cm/s DECEL Time 187 ms P 1/2 T 53 ms MVA (PHT) 4.1 cm2 TDI E/E' Medial 12.4 E/E' Lateral 17.3 Medial E' Peak V 7.11 cm/s Lateral E' Peak V 5.08 cm/s Pulmonary Valve PV Vmax 0.9 m/s PV VTI 0.20 m PV Mean GR 2.0 mmHg PV Peak GR 3.5 mmHg Tricuspid Valve TR Vmax 1.4 m/s RAP (EST) 8 mmHg RVSP 16.0 mmHg TR Peak GR 8.0 mmHg Left Ventricle The left ventricle is mildly dilated. The basal/mid/apical inferior and inferolateral jolley are severely hypokinetic. The basal/mid/apical anterior lateral wall is hypokinetic. The anterior wall is normal in function. Mild concentric left ventricular hypertrophy. Left ventricle systolic function is moderate to severely depressed, estimated LVEF 35 to 40%. Indeterminate diastolic function. Right Ventricle The right ventricle is normal size. Right ventricle systolic function is mildly depressed, TAPSE 15 mm. Atria The left atrium size is normal. The right atrium size is normal. Aortic Valve Aortic valve is trileaflet. The leaflets are mildly thickened and calcified. Trace aortic regurgitation. There is no aortic valvular stenosis. Mitral Valve Mild mitral annular calcification is noted. The leaflets are mildly thickened and calcified. Mild mitral regurgitation. There is no mitral valve stenosis. Tricuspid Valve The tricuspid valve is normal in structure. Trace tricuspid regurgitation. RVSP is 8 mmHg. Pulmonic Valve Pulmonic valve is not well visualized. Great Vessels The aortic root is normal in size. The IVC is normal in size and collapses <50% with inspiration. Pericardium There is no pericardial effusion. Other Information Quality : Adequate Conclusion The cardiac chambers are normal in size. Mild concentric left ventricular hypertrophy. The basal/mid/apical inferior and inferolateral jolley are severely hypokinetic. The basal/mid/apical anterior lateral wall is hypokinetic. The anterior wall is normal in function. Left ventricle systolic function is moderate to severely depressed, estimated LVEF 35 to 40%. Indeterminate diastolic function. Right ventricle systolic function is mildly depressed, TAPSE 15 mm. Trace aortic regurgitation. Mild mitral regurgitation. Trace tricuspid regurgitation. PASP is 16 mmHg. There is no pericardial effusion. DICTATED BY: LEESA TAVARES MD DATE: 12/12/24839 ELECTRONICALLY SIGNED BY: LEESA TAVARES MD DATE: 12/13/24 011 PATIENT: OLEG FERRARO MR#: [id number] : 1945 SEX: M AGE: 79 LOCATION: [facility] ORDER 45 STATUS: ADM IN REPORT#: [id number] SERVICE 43 REASON: renal failure ORDERING PHYSICIAN: NIMO BERNARD MD PROCEDURE: RENAL - US RENAL SONOGRAM EXAMINATION: ULTRASOUND OF THE RETROPERITONEUM. CLINICAL HISTORY: Renal failure. COMPARISON: None. TECHNIQUE: Real-time grayscale ultrasound images of the kidneys. FINDINGS: The kidneys are normal in caliber, the right kidney measures 8.9 x 4.9 x 4.6 cm and the left kidney measures 11.4 x 6.9 x 4.8 cm in its craniocaudal, AP, and transverse dimensions respectively. There is normal renal cortical thickness, and cortical echogenicity. There is no renal calculus or hydronephrosis. There are simple cortical cysts that measure 1.9 x 2.0 x 1.7 cm in the upper pole, 4.0 x 2.8 x 2.7 cm in the mid pole, 9.5 x 7.5 x 7.3 cm in the lower pole of the right kidney. There are simple cortical cysts that measure 5.0 x 3.4 x 4.5 cm and 5.9 x 3.6 x 3.9 cm in the mid to lower pole of the left kidney. There is a parapelvic cyst that measures 1.1 x 1.0 cm in the mid pole of the left kidney. The urinary bladder is normal in caliber and wall thickness (0.25 cm). There are no calculi in the urinary bladder. IMPRESSION: Bilateral simple renal cortical cysts. Left renal parapelvic cyst. /[place] DICTATED BY: SHA LATIF Jr., MD DATE: 12/12/2432 ELECTRONICALLY SIGNED BY: SHA LATIF Jr., MD DATE: 12/12/2432 PATIENT: OLEG FERRARO MR#: [id number] : 1945 SEX: M AGE: 79 [facility] 25 STATUS: ADM IN REPORT#: [id number] SERVICE 24 REASON: cp ORDERING PHYSICIAN: JULY GANN MD PROCEDURE: CXR1VW - CHEST 1VW EXAM: CR Chest, 1 View. CLINICAL HISTORY: cp COMPARISON: Radiograph dated May 10, 2024 FINDINGS: LUNGS: Mild bibasilar airspace disease may reflect an infectious process versus atelectasis. Continued follow-up is recommended. PLEURAL SPACES: No pleural effusion or pneumothorax. MEDIASTINUM: Cardiac size and mediastinal contours within normal limits. BONES: No acute osseous abnormality. IMPRESSION: 1. Mild bibasilar airspace disease, possibly representing infection or atelectasis. /[place] DICTATED BY: SHA LATIF Jr., MD DATE: 12/11/241733 ELECTRONICALLY SIGNED BY: SHA LATIF Jr., MD DATE: 12/11/241733 ASSESSMENT: Inferior STEMI POA Leukocytosis differential in setting of STEMI versus infection Hyperglycemia secondary to uncontrolled diabetes mellitus type 2 Acute kidney injury Diabetic neuropathy Hypoalbuminemia Mild LFT elevation PLAN: Labs, diagnostic, radiologic exams reviewed and interpreted by myself and supervising physician. We have reviewed external records in detail Require close monitoring of renal function and electrolytes Order CBC, CMP, and electrolytes in am Continue with antibiotics BiPAP as necessary, for respiratory distress Monitor blood pressure adjust medication doses as needed May use Dilaudid 0.5 mg IV every 6 hours as needed for severe pain Monitor blood sugars Strict intake, output, and daily weight should be monitored Please renally adjust medications Avoid nephrotoxic and nonsteroidal drugs Avoid contrast if possible Will continue to monitor renal function, anemia, electrolytes Treatment plan discussed with patient Questions were answered We have discussed with the other team physicians in detail about the care plan We will continue to monitor the patient closely ATTESTATION BY PHYSICIAN I have seen and examined the patient. I reviewed the documentation, medical decision making, and treatment plan as noted by the mid-level provider above. I agree with the findings and plan of care. NIMO BERNARD MD, [facility] Dec 16, 2024 12:51
--- NOTE | 2024-12-16 14:17 | PN ---
[facility] PROGRESS NOTE Date Patient Seen: Dec 16, 2024 Time of Visit: 1012 Supervising Physician: Dr. RUSSELL Primary Care Physician: Cesario Avery. Attending team: [employer] hospitalist team Outpatient Specialists: Inpatient Consults: BIS, critical Care team Cardiology PROBLEM LIST: acute hypoxic resp failure Late presentation inferior wall STEMI Persistent ST segment elevations. A-V dissociation with stable ventricular rates in the 50s Acute left lower lobe pneumonia Chest pain with respiration and cough suspicious for pericarditis Suspected CAP POA Hypertension Dyslipidemia Diabetes mellitus type with hyperglycemia- HbA1C:9.3 CKD stage IV Diabetic neuropathy Elevated LFTs INTERVAL HISTORY: No major overnight events. He is hemodynamically stable. SB 57 BPM on the bedside monitor. He denies chest pain or trouble breathing. continues empirically on antibiotics for suspected CAP. Kidney function continues to improve Cr 1.5. we will continue to follow cardiology recommendations. Stable to downgrade to PCCU. 12/15 patient was seen and examined by bedside with family present. Sitting up in chair on room air appears to be tolerating well. At time of visit patient denies any chest pain or shortness of breadth. Denies nausea vomiting or abdominal pain. Patient is tentatively scheduled for a permanent pacemaker tomorrow 12/16/2024. Patient has remained hemodynamically stable. Patient's serum creatinine level trending down today 1.3 upon admission 3.0. Patient we will continue with current IV antibiotics for left lower lobe pneumonia. Dispo per primary team 12/16 patient was seen and examined at bedside. Patient currently on3 L nasal cannula appears to be tolerating well. At time of visit patient has no specific complaints. No continue to monitor serum creatinine level closely and continue to follow recommendations from Nephrology's. At time of visit patient denies any chest pain or shortness of breadth. Denies any nausea vomiting or abdominal pain. Patient to continue with current IV antibiotics. Patient currently pending possible permanent pacemaker placement Plan: Follow cardiology recs Cardiac monitoring continuously. Heart healthy diet Continues on aspirin, statin, Plavix Antibiotics are ceftriaxone and doxycycline, we are following cultures Multimodal pain management Dispo per primary team REVIEW OF SYSTEMS: 12 point ROS reviewed with patient. Pertinent positives mentioned above. Otherwise negative. PHYSICAL EXAM: GENERAL: Alert, weak, awake oriented x 3 HEENT: EOMI, Sclera non icteric, moist mucosa NECK: Supple, no JVD, trachea midline LUNGS: Clear breath sounds bilaterally. No wheezes HEART: Regular rate and rhythm. Normal S1 and S2, without murmurs ABD: Abdomen soft, nontender. Bowel sounds present EXT: No clubbing cyanosis or edema NEURO: Alert and oriented to X3, follows commands Vital Signs (last 8hr) Date Time Temp Pulse Resp B/P (MAP) Pulse Ox O2 Delivery O2 Flow Rate FiO2 12/16/24 12:30 83 18 132/67 97 Nasal Cannula 3.0 12/16/24 12:00 98.8 80 18 124/67 99 Nasal Cannula 3.0 12/16/24 11:40 83 20 N/Cannula Low lpm 2.0 28 12/16/24 11:00 97.9 83 18 125/72 96 Nasal Cannula 3.0 12/16/24 10:45 86 18 116/72 99 Nasal Cannula 3.0 12/16/24 10:30 89 18 118/72 96 Nasal Cannula 3.0 12/16/24 10:15 97.5 91 18 122/73 97 Nasal Cannula 3.0 12/16/24 08:36 Nasal Cannula 3.0 12/16/24 06:35 49 20 N/Cannula Low lpm 21 LABS: Hematology Labs: Test 12/16/24 03:33 12/15/24 05:33 Range/Units White Blood Count 13.9 H 4.8-10.8 K/uL Red Blood Count 4.12 L 4.50-6.20 MIL/uL Hemoglobin 12.8 L 14.0-18.0 g/dL Hematocrit 37.1 L 42-54 % Mean Corpuscular Volume 90.0 79-99 fL Mean Corpuscular Hemoglobin 31.1 27.0-33.0 pg Mean Corpuscular Hemoglobin Concent 34.5 32.0-36.0 g/dL Red Cell Distribution Width 12.2 11.0-15.5 % Platelet Count 336 130-400 K/uL Mean Platelet Volume 10.4 7.5-10.5 fL Nucleated Red Blood Cells 0.0 0.0-0.19 % Immature Granulocyte % (Auto) 0.7 0-1 % Neutrophils (%) (Auto) 74.0 40.0-77.0 % Lymphocytes (%) (Auto) 11.5 L 21.0-51.0 % Monocytes (%) (Auto) 12.6 3.0-13.0 % Eosinophils (%) (Auto) 1.0 0.0-8.0 % Basophils (%) (Auto) 0.2 0.0-5.0 % Neutrophils # (Auto) 10.0 H 1.8-7.7 K/uL Lymphocytes # (Auto) 1.6 1.0-4.8 K/uL Monocytes # (Auto) 1.7 H 0.1-1.0 K/uL Eosinophils # (Auto) 0.13 0.00-0.70 K/uL Basophils # (Auto) 0.03 0.00-0.20 K/uL Absolute Immature Granulocyte (auto 0.09 0-1 K/uL Chemistry Labs: Test 12/16/24 11:11 12/16/24 03:33 12/15/24 05:33 Range/Units Whole Blood Glucose 121 H 70-110 MG/DL Sodium Level 139 136-145 mmol/L Potassium Level 3.4 L 3.5-5.1 mmol/L Chloride Level 102 101-111 mmol/L Carbon Dioxide Level 24 21-32 mmol/L Blood Urea Nitrogen 48 H 7-18 mg/dL Creatinine 1.4 H 0.5-1.3 mg/dL Glomerular Filtration Rate Calc 51 >90 mL/min Random Glucose 87 70-105 mg/dL Total Calcium 8.0 L 8.5-10.1 mg/dL Total Bilirubin 0.6 0.2-1.0 mg/dL Aspartate Amino Transf (AST/SGOT) 53 H 10-37 U/L Alanine Aminotransferase (ALT/SGPT) 28 12-78 U/L Alkaline Phosphatase 89 50-136 U/L Total Protein 6.3 6.0-8.3 g/dL Albumin 2.2 L 3.5-5.0 g/dL Phosphorus Level 2.7 2.5-4.9 mg/dL Magnesium Level 2.70 H 1.80-2.40 mg/dL DIAGNOSTICS / RADIOLOGY RESULTS: na PLAN NEURO: Minimize central acting medications as possible. Maintain fall precautions, adequate lighting during the day PULMONARY: Supplemental 02 as needed. Maintain aspiration precautions at all times CARDIOVASCULAR: Follow hemodynamics. Vital signs per facility protocol GI & NUTRITION: Continue with nutritional support. Continue stool softeners and laxatives as needed. KIDNEYS & ELECTROLYTES: Strict monitoring of intake, output and overall fluid balance. Avoid nephrotoxic medications to the extent possible. Medications to be dosed according to renal function. Monitor electrolytes and replace as needed ENDOCRINE: Maintain blood glucose between 100-180 at all times. Hypoglycemia protocol in place INFECTIOUS DISEASE: Trend temperature, WBC and procalcitonin level Follow cultures, deescalate antibiotics as soon as possible. Panculture if new onset fever ONCOLOGY/HEMATOLOGY/COAGULATION: Monitor for s/s of bleeding Monitor hemoglobin, coagulation studies as needed SKIN: Pressure ulcer prevention per facility protocol Specialty mattress ORTHO/REHAB: Continue PT/OT Prophylaxis: Continue GI and DVT prophylaxis Code Status: Full Resuscitation Disposition: TBD Other: Case discussed with supervising physician plan of care agreed upon DONTAE QUINN Dec 16, 2024 14:17
--- NOTE | 2024-12-16 16:24 | DS ---
Discharge Summary Hospital Course Summary: Mr. Shailesh Yang is a 79-year-old male with a history of type 2 diabetes mellitus, hypertension, dyslipidemia, and chronic kidney disease (CKD) stage 4, who presented with chest pain. The chest pain began two days prior to admission, described as pressure-like, localized to the right sternal area, non-radiating, and resolved upon arrival to the hospital. He denies associated symptoms such as vomiting, fever, chills, cough, shortness of breath, abdominal pain, or dysuria. He did report episodes of nausea without vomiting. No recent falls or syncopal episodes. He takes insulin and metformin at home, with no prior renal issues or changes in urination. He requests tramadol for pain, which he uses as needed for chronic pain. 12/13/24 was evaluated today in 215, he continues to be symptomatic. Patient feels dizzy on movement. We will continue to follow recommendations from EP physician, Dr. Malone. We will continue to monitor closely. 12/14/2024 Patient was seen today, he reported no dizziness and chest pain, "feeling a lot better than yesterday." As per cardio, patient is still having AV disassociation if not resolved, he will get PPM prior to dc. We will continue to follow. 12/15/24 Patient was seen in 228, he denies SOB or dizziness. [employer] on board, we will continue to follow with them and Dr Malone. No acute events overnight. ] 12/16 patient underwent pacemaker placement today. Patient is resting comfortably in bed postprocedure. No new complaints or concerns. No acute events reported overnight. Patient has been cleared by EP Cardiology for discharge to follow up with PCP, Cardiology and [facility] Cardiology. Medications as per med rec. Assessment/Plan: ASSESSMENT: Acute inferior wall myocardial infarction (late presentation, 48 hours after onset), currently pain-free, Q-waves inferiorly, troponin downtrending. Persistent AV disassociation Type 2 diabetes mellitus. Acute on chronic kidney disease, stage 4 (creatinine increased from baseline, now improving). Hypertension. Dyslipidemia. 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 Pain with cough and deep inspiration, likely musculoskeletal or post-infarct. PLAN: Continue dual antiplatelet therapy (aspirin, clopidogrel), atorvastatin Continue insulin sliding scale for glycemic control. Hold beta blockers due to bradycardia and AV block. Monitor cardiac rhythm; external pacemaker in place. Monitor renal function and electrolytes closely. 2D echocardiogram results showed Left ventricle systolic function is moderate to severely depressed, estimated LVEF 35 to 40% Pain management: Continue tramadol as needed, monitor for side effects. Infectious workup: Continue doxycycline as per protocol. Follow up Cardiology appreciate assistance Follow up with [facility] Cardiology (Dr. Malone) to follow for further management and pacemaker evaluation. Plans for PPM if AV disassociation is not resolved. Monitor for recurrence of chest pain, arrhythmias, or signs of heart failure. Full code Case discussed with patient and nurse at bedside Attention time greater than 30 minutes Home Medications: Active Scripts Amoxicillin/Potassium Clav (Amox Tr-K Clv 875-125 mg Tab) 875 Mg-125 Mg Tablet, 1 TAB PO BID for 2 Days, #4 TAB 0 Refills Prov:BIANCA WILLS IV, MD 12/16/24 Clopidogrel Bisulfate (Plavix) 75 Mg Tablet, 75 MG PO DAILY, #30 TAB Prov:BIANCA WILLS IV, MD 12/16/24 Atorvastatin Calcium (Atorvastatin Calcium) 20 Mg Tablet, 20 MG PO HS for 30 Da ys, #30 TAB Prov:BIANCA WILLS IV, MD 12/16/24 Metformin HCl (Metformin HCl ER) 500 Mg Tab.er.24, 1 TAB PO BID for 30 Days, #60 TAB 0 Refills Prov:SUSAN HINDS MD 05/10/24 Gabapentin (Gabapentin) 100 Mg Capsule, 100 MG PO BID for 30 Days, #30 CAP Prov:BRITTANY BILLS MD 04/17/23 Hydrocodone/Acetaminophen (Hydrocodone-Acetamin 5-300 mg) 5 Mg-300 Mg Tablet, 1 EACH PO q8hrs, #9 TAB Prov:BRITTANY BILLS MD 04/17/23 Reported Medications Aspirin (ASPIRIN 81 MG ECTAB) 81 Mg Ectab, 81 MG PO DAILY, TAB.EC 07/06/22 Tramadol Hcl (Tramadol HCl) 50 Mg Tablet, 50 MG PO BID PRN for PAIN, TAB 07/06/22 Rosuvastatin Calcium (Rosuvastatin Calcium) 20 Mg Tablet, 20 MG PO HS, TAB 07/06/22 Psyllium Husk (Psyllium Husk) 1,000 Gm Powder, 38 GM MC DAILY, APPL 07/06/22 Insulin Detemir (Levemir) 100 Unit/1 Ml Vial, 25 UNIT SQ DAILY, VIAL 07/06/22 Glipizide (Glipizide) 10 Mg Tablet, 10 MG PO DAILY, TAB 07/06/22 Time spent arranging discharge: 31-60 minutes BIANCA WILLS IV, MD Dec 16, 2024 16:24
[2024-12-16] MEDS ORDERED: ATOR20TA65 PO (16:29)
[2024-12-16] MEDS ORDERED: CLOP-31 PO (16:29)
[2024-12-16] MEDS ORDERED: AMOX1TAB16 PO (16:29)
== END 2024-12-16 18:30 | disposition home or self-care (01) | DRG 242 ==
LOC: EDH 15:15 → EDHIP 15:50 → 2CH 21:18 → 2DH 12-14 17:54
PROVIDERS: ADMIT Internal Medicine; ATTEND Internal Medicine
PROC: 0JH606Z Insertion of Pacemaker, Dual Chamber into Chest Subcutaneous Tissue and Fascia, Open Approach (ICD-10-PCS; principal; 2024-12-16)
PROC: 02H63JZ Insertion of Pacemaker Lead into Right Atrium, Percutaneous Approach (ICD-10-PCS; 2024-12-16)
PROC: 02HK3JZ Insertion of Pacemaker Lead into Right Ventricle, Percutaneous Approach (ICD-10-PCS; 2024-12-16)
DX: I21.19 ST elevation (STEMI) myocardial infarction involving other coronary artery of inferior wall (principal); J18.9 Pneumonia, unspecified organism; J96.01 Acute respiratory failure with hypoxia; I44.2 Atrioventricular block, complete; E87.1 Hypo-osmolality and hyponatremia; N17.9 Acute kidney failure, unspecified; N18.4 Chronic kidney disease, stage 4 (severe); I45.89 Other specified conduction disorders; I12.9 Hypertensive chronic kidney disease with stage 1 through stage 4 chronic kidney disease, or unspecified chronic kidney disease; E11.40 Type 2 diabetes mellitus with diabetic neuropathy, unspecified; E88.09 Other disorders of plasma-protein metabolism, not elsewhere classified; N28.1 Cyst of kidney, acquired; E11.65 Type 2 diabetes mellitus with hyperglycemia; E11.22 Type 2 diabetes mellitus with diabetic chronic kidney disease; I49.8 Other specified cardiac arrhythmias; I25.5 Ischemic cardiomyopathy; E78.00 Pure hypercholesterolemia, unspecified; I25.2 Old myocardial infarction; Z79.4 Long term (current) use of insulin; Z95.0 Presence of cardiac pacemaker; Z51.5 Encounter for palliative care
CPT/HCPCS: 33208; 36415; 36600; 71045; 71250; 76770; 80048; 80051; 80053; 80076; 81001; 82435; 82570; 82803; 82947; 82948; 83036; 83605; 83735; 83880; 83935; 84100; 84132; 84145; 84295; 84443; 84484; 84550; 85018; 85025; 85027; 85610; 85730; 86140; 87040; 87635; 87804; 87880; 93005; 93306; 93356; 94640; 94664; 96372; 99156; 99157; 99291; C1769; C1785; G0378; J0690; J0696; J1171; J1644; J1650; J1815; J2250; J3010; J3373; J3490; Q9967; C1894; C1898; J0665